=== PATIENT | female | born 1980 | race Caucasian/White ===

== ENCOUNTER 2022-05-14 08:45 | Outpatient (RCR) | payer BC, SELFPAY | END 2022-05-30 14:33 | disposition home or self-care (01) | PROVIDERS: Visit Provider Dentist | DX: M26.609 Unspecified temporomandibular joint disorder, unspecified side (principal); Z51.89 Encounter for other specified aftercare | CPT/HCPCS: 97110; 97140; 97161 ==

== ENCOUNTER 2022-10-10 10:10 | Emergency (ER) | payer BC, SELFPAY ==
[2022-10-10] VITALS (20 sets, daily range): BP systolic 90–116; BP diastolic 55–77; PULSE 63–79; RESP 16; TEMP 37.1; O2SAT 97–100; BMI 23.4
[2022-10-10 11:15] LABS: Appearance Urine Clear (Clear); Bilirubin Urine Negative (Negative); Blood Urine Negative (Negative); Color Urine Yellow (Yellow); Glucose Urine Negative (Negative); Ketones Urine Negative (Negative); Leukocyte Esterase Urine Negative (Negative); Nitrite Urine Negative (Negative); Protein Urine Negative (Negative); Specific Gravity Urine <= 1.005 (1.000-1.030); Urobilinogen Urine 0.2 (0.2-1.0)
--- NOTE | 2022-10-10 11:16 | ED.ABDPAIN ---
HPI - Abdominal Pain General Time Seen by Provider: 11:17 Date Seen: 10/10/22 Chief Complaint: Abdominal Pain Stated Complaint: Abdominal pain Time Seen by Provider: 10/10/22 11:15 Source: patient and RN notes reviewed Mode of arrival: ambulatory Limitations: no limitations History of Present Illness HPI narrative: Gill is a very pleasant 42-year-old female with a history of lupus, immune modulator medications, and endometrial ablation 2 years ago who comes to the emergency room complaining of pressure throughout her stomach after significant pain last evening. Patient notes that she was awoken from sleep overnight with a pain in her lower abdomen-she shows this to be suprapubic left lower quadrant wrapping around to her back. She notes that it was so severe that she needed to take 1 of her leftover Dilaudid tablets from her surgery 2 years ago. She had been experiencing approximately 48 hours of diarrhea nonbloody without vomiting. She has not been experiencing any fever chills sore throat runny nose or a cough. She has not been on any recent antibiotics. She does have a history of a ovarian cyst in the past. She states today that she feels like she has significant pressure throughout her abdomen but this severe pain has dissipated. She did call Ob but they were unable to accommodate her in the clinic today. She denies vaginal discharge or dysuria. She has not had problems with kidney stones in the past. Related Data Home Medications Medication Instructions Recorded Confirmed azathioprine 50 mg tablet (Imuran) 50 mg PO BID 10/10/22 10/10/22 hydroxychloroquine 200 mg tablet 200 mg PO BID 10/10/22 10/10/22 [id number] 2 cap PO QID 10/10/22 10/10/22 12,000-38,000-60,000 unit capsule,delayed rel (Creon) sulindac 200 mg tablet 200 mg PO DAILY 10/10/22 10/10/22 sumatriptan succinate 100 mg tablet 100 mg PO PRN 10/10/22 zolpidem 6.25 mg tablet,extended 6.25 mg PO QHS 10/10/22 10/10/22 release,multiphase Previous Rx's Medication Instructions Recorded hydromorphone 2 mg tablet 2 mg PO Q8H PRN pain #5 tabs 10/10/22 (Dilaudid) Allergies Allergy/AdvReac Type Severity Reaction Status Date / Time acetaminophen [From Percocet] Allergy Unknown Verified 10/10/22 10:16 hydrocodone [From Vicodin] Allergy Unknown Verified 10/10/22 10:16 oxycodone [From Percocet] Allergy Unknown Verified 10/10/22 10:16 Penicillins Allergy Unknown Verified 10/10/22 10:16 Review of Systems Status of ROS Reports: 10 or more systems reviewed and unremarkable except as noted in History and below Const Denies: fever or chills Eyes Denies: change in vision ENMT Denies: throat pain or neck pain Cardio Denies: chest pain, palpitations, swelling of feet/ankles or shortness of breath with exertion Resp Denies: shortness of breath, cough or wheezing GI Reports: abdominal pain, nausea and diarrhea Denies: painful urination or urinary frequency Musculo Denies: neck pain Integ/Breast Denies: rash Allergy/Immuno Denies: wheezing PFSH PFSH Social History Smoking Status: Never smoker Do you use any of these nicotine containing products: None Second hand tobacco smoke exposure: No How often do you have a drink containing alcohol: monthly or less AUDIT-C Alcohol total score: 1 Non-prescribed substance use: denies use service: No Exam Narrative: Exam Narrative: Patient is alert and oriented. He seems somewhat sad and very frustrated. Her is here in seems loving and supportive. EOM is full pupils equal round reactive neck is supple without lymphadenopathy. Heart with a regular rate and rhythm without murmur or rub and lungs are clear to auscultation. No CVA tenderness with percussion. Abdominal exam shows no localized tenderness. There does appear to be some discomfort with palpation over the suprapubic and left lower quadrant. No masses are palpated. Straight leg raise internal external rotation and tapping at the heel does not increase discomfort. Examination of the back shows no lesions to indicate shingles. Const: Vital Signs, click to edit/add: Vital Signs - 24 hr 10/10/22 10:21 10/10/22 10:38 10/10/22 10:39 Temperature 98.7 F Pulse Rate 73 69 Pulse Rate [Pulse Oximeter] 79 Respiratory Rate 16 Blood Pressure 105/69 Blood Pressure [Ri ght Upper Arm] 116/77 Pulse Oximetry 100 100 100 Oxygen Delivery Me thod Room Air 10/10/22 11:00 10/10/22 11:01 10/10/22 11:30 Temperature Pulse Rate 63 68 63 Pulse Rate [Pulse Oximeter] Respiratory Rate Blood Pressure 106/62 Blood Pressure [Ri ght Upper Arm] Pulse Oximetry 100 100 100 Oxygen Delivery Me thod 10/10/22 11:31 10/10/22 11:32 10/10/22 12:10 Temperature Pulse Rate 65 73 Pulse Rate [Pulse Oximeter] Respiratory Rate Blood Pressure 108/68 Blood Pressure [Ri ght Upper Arm] Pulse Oximetry 100 100 Oxygen Delivery Me thod 10/10/22 12:30 10/10/22 12:32 10/10/22 13:00 Temperature Pulse Rate 63 64 65 Pulse Rate [Pulse Oximeter] Respiratory Rate Blood Pressure 92/55 L Blood Pressure [Ri ght Upper Arm] Pulse Oximetry 100 100 100 Oxygen Delivery Me thod 10/10/22 13:01 10/10/22 13:30 10/10/22 13:32 Temperature Pulse Rate 71 72 70 Pulse Rate [Pulse Oximeter] Respiratory Rate Blood Pressure 96/57 L 90/59 L Blood Pressure [Ri ght Upper Arm] Pulse Oximetry 100 100 100 Oxygen Delivery Me thod 10/10/22 13:33 10/10/22 14:03 10/10/22 14:04 Temperature Pulse Rate 69 66 68 Pulse Rate [Pulse Oximeter] Respiratory Rate Blood Pressure 112/71 Blood Pressure [Ri ght Upper Arm] Pulse Oximetry 100 97 100 Oxygen Delivery Me thod 10/10/22 14:30 10/10/22 14:31 Temperature Pulse Rate 75 69 Pulse Rate [Pulse Oximeter] Respiratory Rate Blood Pressure 113/71 Blood Pressure [Ri ght Upper Arm] Pulse Oximetry 100 100 Oxygen Delivery Me thod Course Course Hospital Course: Differential diagnosis includes but is not limited to ovarian cyst rupture, diverticulitis, colitis, intussusception, ureteral colic, UTI. Spoke with patient about ordering labs to include a CBC, comprehensive panel, CRP, urinalysis and abdominal CT. Patient declines any pain medications at this time to include Toradol or narcotics. She is receptive to 1 L IV fluids. Reevaluation(s) Reevaluation #1: At this time abdominal CT is reassuring with no abnormal findings. Will order pelvic ultrasound. Reevaluation #2: Pelvic ultrasound appears to be within normal limits. Patient is very frustrated at this time he begins to cry. She states that she hates to come in here especially when nothing is wrong. She is worried that she will not be able to control the pain if it comes back. She does have 3 tablets of Dilaudid left. I am wondering if this may be endometriosis. However, she does have a mild elevation of her AST and ALT although there are her CRP is normal I did explain to her that the CT did show some fatty liver. She states that normally these values are totally normal. She has not traveled recently but given her history of diarrhea with this I did add acute hepatitis panel on to her labs. Vital Signs Vital signs: Initial Vital Signs Temperature 98.7 F 10/10/22 10:21 Temperature Source Temporal Artery Scan 10/10/22 10:21 Pulse Rate 79 10/10/22 10:21 Pulse Rhythm 10/10/22 10:21 Pulse Strength 3+ Normal 10/10/22 10:21 Respiratory Rate 16 10/10/22 10:21 Blood Pressure 116/77 10/10/22 10:21 Blood Pressure Mean 90 10/10/22 10:21 Blood Pressure Position Sitting 10/10/22 10:21 Pulse Oximetry 100 10/10/22 10:21 Oxygen Delivery Method 10/10/22 10:21 Vital Signs Temperature 98.7 F 10/10/22 10:21 Pulse Rate 79 10/10/22 10:21 Respiratory Rate 16 10/10/22 10:21 Blood Pressure 116/77 10/10/22 10:21 Pulse Oximetry 100 10/10/22 10:21 Oxygen Delivery Method 10/10/22 10:21 Temperature 98.7 F 10/10/22 10:21 Pulse Rate 69 10/10/22 14:31 Respiratory Rate 16 10/10/22 10:21 Blood Pressure 113/71 10/10/22 14:31 Pulse Oximetry 100 10/10/22 14:31 Oxygen Delivery Method 10/10/22 10:21 MDM - Abdominal Pain MDM Narrative Medical decision making narrative: 1. Abdominal pain-at this time no evidence of UTI, diverticulitis, colitis, ovarian cyst ovarian torsion. Patient may use the Dilaudid she has at home as needed for pain while awaiting follow-up with her primary MD. I have given her and additional 5 doses of Dilaudid 2 mg p.o. to be use Q 6-8 hours p.r.n.. At this time reassurance that I do not see any major medical issue going on. However I am sensitive to the fact that she is very frustrated with multiple medical problems including lupus. If she has the onset of fever, worsening symptoms would have her return to the emergency room she does note that her diarrhea has resolved I suspect that is because of the Dilaudid use last night. 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 Note there was increased colonic burden but I think this is likely secondary to narcotic use and not because constipation was the initial problem. 2. Elevated LFTs with diarrhea-hepatitis panel pending although I have a low suspicion for this. 3. Disposition-home at this time. I scents patient's extreme frustration at our lack of finding certain diagnoses today. I would ask her to return if she has onset of new symptoms or worsening symptoms. Follow-up with primary MD. Medical Records Attestation: I reviewed the patient's medical records. Lab Data Attestation: I reviewed the patient's lab results. Labs: Lab Results 10/10/22 10/10/22 10/10/22 Range/Units 10:35 10:35 10:35 WBC 4.59 (4.50-11.00) K/uL RBC 3.80 L (4.00-5.20) m/uL Hgb 12.9 (12.0-16.0) gm/dL Hct 36.6 (33.0-51.0) % MCV 96 (80-100) fL MCH 34 (26-34) pg MCHC 35 (32-36) gm/dL RDW Coeff of Brittany 13.3 (11.5-15.5) % Plt Count 275 (140-440) K/uL Neut % (Auto) 66.1 (42.0-72.0) % Lymph % (Auto) 26.1 (20-44) % Stanley % (Auto) 6.3 (0.0-11.0) % Eos % (Auto) 1.1 (0.0-7.0) % Baso % (Auto) 0.2 (0.0-3.0) % Neut # (Auto) 3.03 (1.7-7.0) K/uL Lymph # (Auto) 1.20 (0.90-2.90) K/uL Stanley # (Auto) 0.30 (0.00-0.90) K/UL Eos # (Auto) 0.05 (0.00-0.50) K/uL Baso # (Auto) 0.01 (0.00-0.30) K/uL Sodium 137 (135-149) mmol/L Potassium 4.8 (3.6-5.1) mmol/L Chloride 104 (96-114) mmol/L Carbon Dioxide 27 (20-32) mmol/L BUN 14 (5-24) mg/dL Creatinine 0.6 (0.5-1.5) mg/dL Estimated Creat Clear 103.10 Estimated GFR 116 ml/min Glucose 95 (60-115) mg/dL Lactate (0.5-1.9) mmol/L Calcium 9.4 (8.4-10.6) mg/dL Total Bilirubin 1.4 (0.1-1.5) mg/dL AST 50 H (12-35) U/L ALT 46 H (4-35) U/L Alkaline Phosphatase 45 (40-150) U/L C-Reactive Protein < 0.5 L (0.5-1.0) mg/dL Total Protein 7.5 (6.0-8.3) g/dL Albumin 4.7 (3.3-5.0) g/dL Urine Color Cancelled Urine Appearance Cancelled Urine pH Cancelled Ur Specific [place] Cancelled Urine Protein Cancelled Urine Glucose (UA) Cancelled Urine Ketones Cancelled Urine Blood Cancelled Urine Nitrite Cancelled Urine Bilirubin Cancelled Urine Urobilinogen Cancelled Ur Leukocyte Esterase Cancelled Urine RBC Cancelled Urine WBC Cancelled Urine WBC Clumps Cancelled Ur Squamous Epith Cells Cancelled Erda Biurate Crystals Cancelled Calcium Carbonate Cryst Cancelled Calcium Phosphate Cryst Cancelled Calcium Oxalate Crystal Cancelled Cystine Crystals Cancelled Uric Acid Crystals Cancelled Triple Phos Crystals Cancelled Sulfur Crystals Cancelled Cholesterol Crystals Cancelled Tyrosine Crystals Cancelled Hippuric Acid Crystals Cancelled Amorphous Sediment Cancelled Other Sediment Cancelled Urine Bacteria Cancelled Fatty Casts Cancelled Hyaline Casts Cancelled Fine Granular Casts Cancelled Coarse Granular Casts Cancelled Waxy Casts Cancelled RBC Casts Cancelled WBC Casts Cancelled Other Casts Cancelled Urine Starch Cancelled Urine Mucus Cancelled Urine Trichomonas Cancelled Urine Yeast Cancelled Urine HCG, Qual Negative (Negative) 10/10/22 10/10/22 Range/Units 10:35 10:55 WBC (4.50-11.00) K/uL RBC (4.00-5.20) m/uL Hgb (12.0-16.0) gm/dL Hct (33.0-51.0) % MCV (80-100) fL MCH (26-34) pg MCHC (32-36) gm/dL RDW Coeff of Brittany (11.5-15.5) % Plt Count (140-440) K/uL Neut % (Auto) (42.0-72.0) % Lymph % (Auto) (20-44) % Stanley % (Auto) (0.0-11.0) % Eos % (Auto) (0.0-7.0) % Baso % (Auto) (0.0-3.0) % Neut # (Auto) (1.7-7.0) K/uL Lymph # (Auto) (0.90-2.90) K/uL Stanley # (Auto) (0.00-0.90) K/UL Eos # (Auto) (0.00-0.50) K/uL Baso # (Auto) (0.00-0.30) K/uL Sodium (135-149) mmol/L Potassium (3.6-5.1) mmol/L Chloride (96-114) mmol/L Carbon Dioxide (20-32) mmol/L BUN (5-24) mg/dL Creatinine (0.5-1.5) mg/dL Estimated Creat Clear Estimated GFR ml/min Glucose (60-115) mg/dL Lactate 0.8 (0.5-1.9) mmol/L Calcium (8.4-10.6) mg/dL Total Bilirubin (0.1-1.5) mg/dL AST (12-35) U/L ALT (4-35) U/L Alkaline Phosphatase (40-150) U/L C-Reactive Protein (0.5-1.0) mg/dL Total Protein (6.0-8.3) g/dL Albumin (3.3-5.0) g/dL Urine Color Yellow Urine Appearance Clear Urine pH 6.0 Ur Specific [place] <= 1.005 Urine Protein Negative Urine Glucose (UA) Negative Urine Ketones Negative Urine Blood Negative Urine Nitrite Negative Urine Bilirubin Negative Urine Urobilinogen 0.2 Ur Leukocyte Esterase Negative Urine RBC 0-2 Urine WBC 0-2 Urine WBC Clumps Ur Squamous Epith Cells None Efrain Biurate Crystals Calcium Carbonate Cryst Calcium Phosphate Cryst Calcium Oxalate Crystal Cystine Crystals Uric Acid Crystals Triple Phos Crystals Sulfur Crystals Cholesterol Crystals Tyrosine Crystals Hippuric Acid Crystals Amorphous Sediment Other Sediment Urine Bacteria None Fatty Casts Hyaline Casts Fine Granular Casts Coarse Granular Casts Waxy Casts RBC Casts WBC Casts Other Casts Urine Starch Urine Mucus Urine Trichomonas Urine Yeast Urine HCG, Qual (Negative) Imaging Data CT scan - abdomen: Attestation: I have reviewed the pertinent imaging results. Radiologist's impression: Lower chest: Unremarkable. Liver: Mild decreased panic attenuation, possibly steatosis. No suspicious masses. Gallbladder and bile ducts: Unremarkable. No stones or inflammation. No biliary dilatation. Pancreas: Unremarkable. No mass or inflammation. Spleen: Unremarkable. Normal in size. No masses. Adrenal glands: Unremarkable. No nodules. Kidneys: Unremarkable. No suspicious masses, stones, or hydronephrosis. GI tract: Unremarkable. Normal in caliber. No sign of mass or inflammation. Normal appendix. Vasculature: Abdominal aorta is normal in caliber. Mesenteric arteries are patent. Lymph nodes: No lymphadenopathy. Peritoneum/Abdominal Wall: Unremarkable. No sign of mass or infiltration. No free air Pelvis: IUD. Trace free fluid, likely physiologic. Bones: Unremarkable for age. IMPRESSION: No acute intra-abdominal/pelvic abnormality. Mild colonic stool burden. Pelvic ultrasound: Attestation: I have reviewed the pertinent imaging results. Radiologist's impression: amira: 6.3 x 4.1 x 4.7 cm.? Normal echotexture of the myometrium.? No masses.? Endometrium: Transvaginal imaging was performed to better evaluate the endometrium. There is an IUD within the endometrial canal in satisfactory position. There heterogeneous appearance of the endocervical canal likely representing nabothian cystic changes. Right ovary measures 3.0 x 1.7 x 2.7 cm and left ovary measures 3.6 x 1.6 x 2.4 cm.? No ovarian or adnexal masses. Normal arterial and venous blood flow is demonstrated in both ovaries. Cul-de-sac: No significant free fluid.? ? IMPRESSION: IUD in satisfactory position. Minimal free fluid in the cul-de-sac. Otherwise, no acute abnormality is appreciated. Discharge Plan Discharge Clinical Impression: Elevated LFTs, Abdominal pain Patient Disposition: Home, Self-Care Condition: Unchanged Additional Instructions: 1. A few tablets of Dilaudid were sent to your local pharmacy. Please use sparingly as needed. 2. Follow-up with GI for recheck. They may want to draw another set of liver function tests for comparison. 3. Seek medical attention for fever, blood in stool, worsening pain, onset of new symptoms. Prescriptions: New hydromorphone [Dilaudid] 2 mg tablet 2 mg PO Q8H PRN (Reason: pain) Qty: 5 0RF No Action hydroxychloroquine 200 mg tablet 200 mg PO BID Label Comments: TAKE 1 TABLET BY MOUTH TWICE DAILY Creon 12,000-38,000 -60,000 unit capsule,delayed release(DR/EC) 2 cap PO QID Label Comments: TAKE 2 CAPSULES BY MOUTH WITH A MEAL AND 1 CAPSULE BY MOUTH WITH A SNACK DIRECTED sulindac 200 mg tablet 200 mg PO DAILY Label Comments: daily zolpidem 6.25 mg tablet,ext release multiphase 6.25 mg PO QHS sumatriptan succinate 100 mg tablet 100 mg PO PRN azathioprine [Imuran] 50 mg tablet 50 mg PO BID Label Comments: 100mg AM, 50mg PM Follow Up/Referrals: Provider,Not a Local [Primary Care Provider] - Stand Alone Forms: [employer] Info Instructions
--- NOTE | 2022-10-10 11:30 | CRLHL7_ITS ---
For Patients: As a result of the Century Cures Act, medical imaging exams and procedure reports are released immediately into your electronic medical record. You may view this report before your referring provider. If you have questions, please contact your health care provider. INDICATION: Lower abdominal pain. TECHNIQUE: CT abdomen and pelvis acquired with 65 cc Omnipaque 350 IV contrast. COMPARISON: None. FINDINGS: Lower chest: Unremarkable. Liver: Mild decreased panic attenuation, possibly steatosis. No suspicious masses. Gallbladder and bile ducts: Unremarkable. No stones or inflammation. No biliary dilatation. Pancreas: Unremarkable. No mass or inflammation. Spleen: Unremarkable. Normal in size. No masses. Adrenal glands: Unremarkable. No nodules. Kidneys: Unremarkable. No suspicious masses, stones, or hydronephrosis. GI tract: Unremarkable. Normal in caliber. No sign of mass or inflammation. Normal appendix. Vasculature: Abdominal aorta is normal in caliber. Mesenteric arteries are patent. Lymph nodes: No lymphadenopathy. Peritoneum/Abdominal Wall: Unremarkable. No sign of mass or infiltration. No free air Pelvis: IUD. Trace free fluid, likely physiologic. Bones: Unremarkable for age. IMPRESSION: No acute intra-abdominal/pelvic abnormality. Mild colonic stool burden. Please note that all CT scans at this facility use dose modulation, iterative reconstruction, and/or weight-based dosing when appropriate to reduce radiation dose to as low as reasonably achievable. Dictated by Oliver Fisher MD @ 10/10/2022 1:03:55 PM (Electronically Signed)
[2022-10-10 11:33] LABS: RBC Urine 0-2 (0-2); WBC Urine 0-2 (0-5)
[2022-10-10 11:39] LABS: Lactate* 0.8 mmol/L (0.5-1.9)
[2022-10-10 11:43] LABS: Basophils Absolute Auto 0.01 K/uL (0.00-0.30); Basophils Percent Auto 0.2 % (0.0-3.0); Eosinophils Absolute Auto 0.05 K/uL (0.00-0.50); Eosinophils Percent Auto 1.1 % (0.0-7.0); Hematocrit 36.6 % (33.0-51.0); Hemoglobin* 12.9 gm/dL (12.0-16.0); Immature Granulocytes Abs Auto 0.01 K/uL (0.00-0.30); Immature Granulocytes Pct Auto 0.2 %; Lymphocytes Percent Auto 26.1 % (20-44); Mean Corpuscular HGB Conc 35 gm/dL (32-36); Mean Corpuscular Hemoglobin 34 pg (26-34); Mean Corpuscular Volume 96 fL (80-100); Monocytes Percent Auto 6.3 % (0.0-11.0); Neutrophils Absolute Auto 3.03 K/uL (1.7-7.0); Neutrophils Percent Auto 66.1 % (42.0-72.0); Platelet Count* 275 K/uL (140-440); RDW Coefficient of Variation % 13.3 % (11.5-15.5); White Blood Count* 4.59 K/uL (4.50-11.00)
[2022-10-10 11:47] LABS: Slide Review Reflex No
[2022-10-10 11:57] LABS: Ur HCG Qualitative* Negative (Negative)
[2022-10-10 11:59] LABS: Albumin* 4.7 g/dL (3.3-5.0); Chloride* 104 mmol/L (96-114)
[2022-10-10 12:00] LABS: Potassium* 4.8 mmol/L (3.6-5.1); Sodium* 137 mmol/L (135-149)
[2022-10-10 12:02] LABS: Creatinine* 0.6 mg/dL (0.5-1.5); Estimated Glomerular Filt Rate 116 ml/min
[2022-10-10 12:03] LABS: Alanine Aminotransferase* 46 U/L (4-35); Alkaline Phosphatase* 45 U/L (40-150); Aspartate Amino Transferase* 50 U/L (12-35); Bilirubin Total* 1.4 mg/dL (0.1-1.5); Blood Urea Nitrogen* 14 mg/dL (5-24); Calcium* 9.4 mg/dL (8.4-10.6); Carbon Dioxide* 27 mmol/L (20-32); Glucose* 95 mg/dL (60-115); Total Protein* 7.5 g/dL (6.0-8.3)
[2022-10-10 12:14] LABS: C Reactive Protein* < 0.5 mg/dL (0.5-1.0)
[2022-10-10] MEDS: 0.9 % SODIUM CHLORIDE 1000 ml 1,000 ML IV (12:15)
--- NOTE | 2022-10-10 13:22 | CRLHL7_ITS ---
For Patients: As a result of the Century Cures Act, medical imaging exams and procedure reports are released immediately into your electronic medical record. You may view this report before your referring provider. If you have questions, please contact your health care provider. INDICATION: Abdominal and pelvic pain TECHNIQUE: Ultrasound pelvis transabdominal and transvaginal for better assessment or to better visualize the endometrium. Real-time sonographic images with spectral and color Doppler imaging of the ovaries were obtained. COMPARISON: None FINDINGS: Uterus: 6.3 x 4.1 x 4.7 cm. Normal echotexture of the myometrium. No masses. Endometrium: Transvaginal imaging was performed to better evaluate the endometrium. There is an IUD within the endometrial canal in satisfactory position. There heterogeneous appearance of the endocervical canal likely representing nabothian cystic changes. Right ovary measures 3.0 x 1.7 x 2.7 cm and left ovary measures 3.6 x 1.6 x 2.4 cm. No ovarian or adnexal masses. Normal arterial and venous blood flow is demonstrated in both ovaries. Cul-de-sac: No significant free fluid. IMPRESSION: IUD in satisfactory position. Minimal free fluid in the cul-de-sac. Otherwise, no acute abnormality is appreciated. Dictated by Clem Hall MD @ 10/10/2022 2:39:00 PM (Electronically Signed)
[2022-10-10 23:29] LABS: Bilirubin Direct* 0.3 mg/dL (0.0-0.5)
== END 2022-10-10 15:26 | disposition home or self-care (01) ==
PROVIDERS: Emergency Provider Family Medicine
DX: R10.9 Unspecified abdominal pain (principal); R19.7 Diarrhea, unspecified; R74.01 Elevation of levels of liver transaminase levels
CPT/HCPCS: 36415; 74177; 76830; 80053; 80076; 81001; 81025; 83605; 85025; 86140; 99284; J7030; Q9967

== ENCOUNTER 2022-10-17 09:19 | Outpatient (CLI) | payer BC, SELFPAY | END 2022-10-17 09:20 | disposition home or self-care (01) | PROVIDERS: Visit Provider Obstetrics & Gynecology | DX: R10.2 Pelvic and perineal pain (principal); N80.9 Endometriosis, unspecified; R79.89 Other specified abnormal findings of blood chemistry; R53.1 Weakness | CPT/HCPCS: 87070; 87075; 87109; 87205 ==

== ENCOUNTER 2023-05-20 08:30 | Outpatient (RCR) | payer BC, SELFPAY | END 2023-07-17 14:34 | disposition home or self-care (01) | PROVIDERS: Visit Provider Obstetrics & Gynecology | DX: R10.2 Pelvic and perineal pain (principal); N80.9 Endometriosis, unspecified; R53.1 Weakness; Z74.09 Other reduced mobility; K66.0 Peritoneal adhesions (postprocedural) (postinfection); Z51.89 Encounter for other specified aftercare | CPT/HCPCS: 97110; 97140; 97162 ==

== ENCOUNTER 2023-10-03 08:26 | Day surgery (SDC) | payer BC, SELFPAY ==
[2023-09-30 23:30] VITALS: BP 111/62; PULSE 98; RESP 16; TEMP 36.4; O2SAT 98
[2023-10-01 20:30] VITALS: BP 117/66; PULSE 93; RESP 16; TEMP 36.6; O2SAT 96
[2023-10-03] VITALS (21 sets, daily range): BP systolic 96–123; BP diastolic 60–94; PULSE 63–89; RESP 12–18; TEMP 35.7–37.1; O2SAT 97–100; BMI 25.2
[2023-10-03 08:56] LABS: Ur HCG Qualitative* Negative (Negative)
[2023-10-03] MEDS: LACTATED RINGERS 1000 ML 1,000 ML 100 ML IV ×4 (09:25→16:15)
[2023-10-03] MEDS: SODIUM CHLORIDE 0.9 % (FLUSH) 10 ML SYRINGE IVF (09:26)
[2023-10-03 09:29] LABS: Hemoglobin* 12.2 gm/dL (12.0-16.0)
[2023-10-03 09:45] LABS: Creatinine* 0.7 mg/dL (0.5-1.5); Est. Creatinine Clearance* 87.49; Estimated Glomerular Filt Rate 111 ml/min
--- NOTE | 2023-10-03 10:07 | W.PM.H&PU ---
History & Physical Update History & Physical Update H&P Reviewed and patient assessed: No changes noted
--- NOTE | 2023-10-03 10:44 | PM.GYNPRHY ---
Procedure Type of Hysterectomy: Total Laparoscopic Pre-op/Post-op diagnoses: Pre-Op/Post-Op Diagnoses Operation Date: 10/03/23 09:50 <No data on this case meets the specified criteria> Procedure: Procedures Operation Date: 10/03/23 09:50 Total laparoscopic hysterectomy, fulguration of endometrial implants, lysis of adhesions, and diagnostic cystoscopy Command [employer] Control Systems Integrator: Sofia Tovar Estimated blood loss (mL): 20 Anesthesia type: General Complications: none Fluid amount (mL): 1,900 Urine output (mL): 600 Weight of Uterus: 2.152 oz Specimen: uterus Disposition: floor Narrative: Preoperative diagnosis: Gill is a 43 y/o 2 para 2001 with longstanding endometriosis complicated by severe pelvic pain and menorrhagia. She's failed multiple medical managements and desires surgical treatment with hysterectomy. Postoperative diagnosis: Same Procedure: Total laparoscopic hysterectomy, fulguration of endometrial implants, lysis of adhesions, and diagnostic cystoscopy. Anesthesia: General endotracheal, local Surgeon: Gila Ambrocio MD Assist: Sofia Tovar MD Drains: Zarco to gravity Specimen: Uterus and cervix to pathology. Findings: On exam under anesthesia: Mons normal, clitoris normal, urethral meatus normal. Labia minora and majora normal in appearance bilaterally. Perineum and anus normal appearance. Vaginal introitus normal appearance. Vaginal pink and well rugated with scant white discharge. Cervix pink and without lesion. Bimanual exam reveals uterus to be soft, nontender, mobile, anteverted, of normal size and texture. No palpable adnexal masses or tenderness. Adnexa without mass or fullness palpable. Uterus sounded to 6.5 cm. On laparoscopy: Omental adhesions to the anterior abdominal wall near the umbilical port from previous surgery. Small uterus with some nodularity on the serosal surface (suspected myomas), surgically absent bilateral fallopian tubes. Normal appearing right ovary. Left ovary with an obvious endometrial implant on the surface. Posterior cul-de-sac without any noted endometrial implant. Endometrial implants not appreciated on any other pelvic surfaces. Appendix, liver and gallbladder all appeared normal. Procedure: Gill was taken to the operating room where general anesthetic was found to be adequate. She was placed in the dorsal lithotomy position and an exam under anesthesia was performed with findings stated above. She was then prepped and draped in a normal sterile manner. A Zarco catheter was placed. A bivalve speculum was placed in the vaginal canal. A long Allis clamp was placed on the anterior lip of the cervix, in the uterus sounded to 6.5 cm. A small VCare uterine manipulator was then placed. The Allis clamp and speculum were removed from the cervix. Attention was then turned to performing the laparoscopic portion of the procedure. All incisions were infiltrated with 1% lidocaine with epi prior to incising the skin. A vertical, infraumbilical 5mm incision was made. A 5 mm trocar was then placed under direct visualization. The abdomen was then insufflated with CO2 gas to a pressure of 15 mm of mercury. Three additional port sites were created. The 1st was in the patient's left lower quadrant, just superior medial to the left ASIS. The 2nd was a hand's breath superior to and slightly medial to the 1st. The 3rd was in the patient's right lower quadrant, just superior medial to the right ASIS. Each was infiltrated with small amount of lidocaine prior to incision. Of 5 mm incision was made at each site, making sure the large vessels were out of harm's way. A 5 mm Fios Kii port was inserted at each site, under direct visualization and without complication. The balloon on each of the 4 ports was inflated, holding each in place. Lysis of adhesion was undertaken to free the omental adhesion from the anterior abdominal wall as it was obscuring my view of the pelvis. At the field of view was cleared, attention was then turned to performing the hysterectomy. Both ureters were visualized in the normal position bilaterally. The left side of the hysterectomy was performed using the LigaSure dissecting forceps. The 1st pedicles were starting with the broad ligament that was cauterized and and bisected. In sequence show pedicles were formed to divide the utero-ovarian ligament. Then sequential pedicles were made through the broad ligament. The posterior leaf of the broad ligament was then divided and sequential pedicles carried down to the level of the VCare cup. The anterior leaf of the broad ligament was then divided down to the level of the anterior aspect of the VCare cup and a bladder flap created. The uterine vessels were then skeletonized. The uterine vessels were then cauterized and divided. Then excess tissue was cleared over the top of the VCare cup using the dissecting forceps. The right side of the hysterectomy was then performed in a similar manner. The Ligasure Valleylab pen with the spatula attachment was then used to perform the colpotomy incising around the VCare cup. The uterus was removed and the fundus placed in the vaginal canal to maintain insufflation. The vaginal cuff was then reapproximated using 2-0 V lock suture in a running manner. All the pedicles and vaginal cuff were then closely visualized and hemostasis obtained with bipolar cautery using the ligasure dissecting forceps or the Valleylab pen with the spatula. The Valleylab pen was used to fulgurate the endometriosis lesion on the left ovary. The the uterus was removed from the vaginal canal and sent to pathology. The Zarco catheter was briefly removed. A diagnostic cystoscopy was performed using normal saline as the insufflation medium. The dome of the bladder was noted to be without injury and no evidence of any sutures from the vaginal cuff causing injury. Normal urine flow was noted through both ureteral orifices. Methylene blue IV was used to visualize the urine more easily. The Zarco catheter was then replaced. Attention was then returned to the abdomen where hemostasis was verified. The CO2 pressure decreased to 5mmHG and hemostasis verified. The fascia in the LLQ incision was approximated with 0-Vicryl suture using the Venkatesh Thomasen fascial closure device. This was closed under direct visualization with the laparoscope. All trocars were removed under direct visualization. CO2 gas was allowed to escape the infraumbilical port prior to its removal. All skin incisions were re-approximated using 4-0 Monocryl in a running subcuticular manner, Exophin skin adhesive gel and adhesive bandages placed. The patient tolerated this procedure well. Sponge, lap and instrument counts were correct x2 at the end of the procedure and the patient was taken to the recovery area in stable condition. The patient received 2gm IV ancef prior to the start of the procedure.
[2023-10-03] MEDS: CEFAZOLIN 2 GM INJ IVP (10:47)
--- NOTE | 2023-10-03 10:55 | W.ANESCHARGE ---
Anesthesia Charges Start Date/Time Anesthesia Start Date: 10/03/23 Anesthesia Start Time: 10:32 Stop Date/Time Anesthesia Stop Date: 10/03/23 Anesthesia Stop Time: 13:38
--- NOTE | 2023-10-03 10:55 | W.PM.NB ---
Nerve Block Nerve Block Time Seen by Provider: 10:39 Date Seen: 10/03/23 Type of block requested by surgeon for post-operative analgesia: TAP Side: bilateral Time out performed: Yes Verification of patient name: Yes Verification of date of : Yes Site marking: site marked Name of person performing procedure: Rubio Continuous monitoring Was continuous monitoring of O2 sat, B/P, industrial electrical technician, recorded every 15 minutes?: Yes Procedure Checklist: sterile prep, needles and gloves Ultrasound guided. Images saved: Yes Medications given in 5ml increments after negative aspiration: Marcaine %: 0.25 mL: 30 Needle gauge: 20 and Exparel mL: 10 Patient tolerated procedure well: Yes Additional comments: Needle noted between internal oblique and transversus abdominus. Local spread visualized Block Charges Block Charge (with Pro Fee): TAP Bilateral Use of Ultrasound Machine for Block: Yes- US Guidance/pain block
[2023-10-03] MEDS: METHYLENE BLUE 1 % 10 ml 100 MG INJECTION (11:48)
[2023-10-03] MEDS: fentaNYL 100 MCG/2 ML inj 50 MCG IVP ×3 (13:36→13:57)
--- NOTE | 2023-10-03 13:42 | W.ANESCHARGE ---
Anesthesia Charges Start Date/Time Anesthesia Start Date: 10/03/23 Anesthesia Start Time: 10:32 Stop Date/Time Anesthesia Stop Date: 10/03/23 Anesthesia Stop Time: 13:38
[2023-10-03] MEDS: HYDROmorphone 2 MG TABLET PO ×2 (14:51→21:08)
[2023-10-03] MEDS: ACETAMINOPHEN INJ 1,000 MG/100 ML VIAL 400 MG IVPB (16:16)
[2023-10-03] MEDS: ACETAMINOPHEN 325 MG TABLET 650 MG PO (21:07)
[2023-10-03] MEDS: GABAPENTIN 100 MG CAPSULE PO (21:07)
[2023-10-04] MEDS: ACETAMINOPHEN 325 MG TABLET 650 MG PO ×3 (01:31→10:12)
[2023-10-04 03:27] VITALS: BP 121/76; PULSE 71; RESP 16; TEMP 37; O2SAT 100
[2023-10-04] MEDS: HYDROmorphone 2 MG TABLET PO (06:22)
[2023-10-04 06:38] LABS: Hemoglobin* 10.9 gm/dL (12.0-16.0)
[2023-10-04 06:53] LABS: Creatinine* 0.6 mg/dL (0.5-1.5); Est. Creatinine Clearance* 102.07; Estimated Glomerular Filt Rate 116 ml/min
[2023-10-04 07:00] VITALS: BP 119/71; PULSE 67; RESP 16; TEMP 36.9; O2SAT 98
--- NOTE | 2023-10-04 07:10 | PC.NURSE ---
Shift note: Pt alert and oriented. LAP appears clean and dry. Pain rate between 3 and 7. Pt was walked in the hallway tonight. Zarco removed at 0630. Vitally stable.
--- NOTE | 2023-10-04 07:51 | PM.GYNDS1 ---
DS: Providers Provider Time Seen by Provider: 07:00 Date Seen: 10/04/23 Primary care physician: Not a Local Provider Attending Physician on discharge: Gila Ambrocio MD Date of Discharge: 10/04/23 DS: Diagnosis Discharge Diagnosis (1) Endometriosis: Status: Acute (2) Pelvic pain: Status: Acute (3) S/P hysterectomy: Status: Acute (4) Acute blood loss anemia: Status: Acute DIRECTOR [employer] DEVELOPMENT-Discharge Summary Hospital Course Hospital Course Narrative: Gill is a 43 year old admitted on 10/03/23 for scheduled total laparoscopic hysterectomy with diagnostic cystoscopy. Indication for surgery: 1. Endometriosis 2. Pelvic pain Intraoperative findings: On exam under anesthesia: Mons normal, clitoris normal, urethral meatus normal. Labia minora and majora normal in appearance bilaterally. Perineum and anus normal appearance. Vaginal introitus normal appearance. Vaginal pink and well rugated with scant white discharge. Cervix pink and without lesion. Bimanual exam reveals uterus to be soft, nontender, mobile, anteverted, of normal size and texture. No palpable adnexal masses or tenderness. Adnexa without mass or fullness palpable. Uterus sounded to 6.5 cm. On laparoscopy: Omental adhesions to the anterior abdominal wall near the umbilical port from previous surgery. Small uterus with some nodularity on the serosal surface (suspected myomas), surgically absent bilateral fallopian tubes. Normal appearing right ovary. Left ovary with an obvious endometrial implant on the surface. Posterior cul-de-sac without any noted endometrial implant. Endometrial implants not appreciated on any other pelvic surfaces. Appendix, liver and gallbladder all appeared normal. She had an uncomplicated surgery. Postoperative course has been uneventful. Vitals have been stable. She has remained afebrile. Today, on postoperative day 1, she reports the pain is well controlled. She has been able to ambulate Without difficulty. She is tolerating regular diet. She is passing flatus. Jean catheter has been removed, and she is voiding without difficulty. Time Spent with Patient Time attestation: Total time spent providing and/or coordinating discharge services: Time spent: Less than 30 minutes DIRECTOR PRODUCT DEVELOPMENT - Exam Physical Exam: Vital signs: Temp Pulse Resp BP Pulse Ox O2 Del Method 98.6 F 71 16 121/76 100 Room Air 10/04/23 03:27 10/04/23 03:27 10/04/23 03:27 10/04/23 03:27 10/04/23 03:27 10/04/23 03:27 Narrative: Physical exam: General: No acute distress Psych: Alert and oriented x4, full affect HEENT: Normocephalic, atraumatic Neck: No cervical adenopathy, no thyromegaly Heart: Regular rate and rhythm, no murmur rub or gallop Lungs: Clear to auscultation bilaterally Abdomen: Normoactive bowel sounds, soft, no tenderness, rebound, or guarding, no masses, no hepatosplenomegaly, no hernias Incision: Appropriately tender to palpation. Clean, dry, and intact. No erythema, induration, or abnormal discharge/breakdown Skin: No lesions or rashes Lower extremities: No edema or erythema Pelvic exam: Scant bleeding on pad [employer]OR [employer]ODUCT DEVELOPMENT - DS: Data Data Completed and Pending Labs on day of discharge: Labs from last 24 hours 10/04/23 10/03/23 10/03/23 06:03 Unknown 09:20 Hgb 10.9 L 12.2 Creatinine 0.6 0.7 Estimated Creat Clear 102.07 87.49 Estimated GFR 116 111 Urine HCG, Qual Negative Blood Type O Positive Antibody Screen NEGATIVE Procedures Procedures: Procedures Operation Date: 10/03/23 09:50 Actual Procedure Side Surgeon p M/S - Laparoscopic Total Abdominal Hysterectomy, Fulgeration of endometrial adhesion of left ovary, lysis of adhesions, Cystoscopy Gila Ambrocio MD Complications: none Discharge Plan Discharge Disposition: Home w/ Parent or Adult Discharging Surgeon: Gila Ambrocio Follow-Up Appointment: 2 weeks and 6-8 weeks postop Prescriptions: New acetaminophen 325 mg Tablet 650 mg PO Q4H PRN (Reason: minor pain) 30 Days Qty: 90 0RF hydromorphone 2 mg Tablet 2 mg PO Q6H PRN14 Days Qty: 20 0RF docusate sodium 100 mg Capsule 100 mg PO BID PRN (Reason: Constipation) 30 Days Qty: 60 0RF gabapentin 100 mg Capsule 100 mg PO TID 30 Days Qty: 90 0RF simethicone 80 mg Tablet,Chewable 160 mg PO Q4H PRN (Reason: gas) 30 Days Qty: 60 0RF ferrous sulfate 134 mg (27 mg iron) tablet 134 mg PO DAILY Qty: 30 0RF Continued magnesium 200 mg tablet 200 mg PO DAILY hydroxychloroquine 200 mg tablet 200 mg PO BID sulindac 200 mg tablet 200 mg PO DAILY zolpidem 6.25 mg tablet,ext release multiphase 6.25 mg PO QHS sumatriptan succinate 100 mg tablet 100 mg PO DAILY PRN azathioprine [Imuran] 50 mg tablet 50 - 100 mg PO BID Rx Instructions: 100mg AM, 50mg PM levonorgestrel-ethinyl estrad 0.1-20 mg-mcg tablet 1 tab PO DAILY Patient Instructions: Iron Supplements (By mouth), Simethicone (By mouth), Laxative, Stool Softeners (By mouth), Hydromorphone (By mouth), Gabapentin (By mouth) Additional Instructions: LAPAROSCOPY POSTOPERATIVE INSTRUCTIONS ACTIVITY No heavy lifting/pushing/pulling for 4-6 weeks. Do not lift anything more than about 15 lbs (such as laundry, groceries, children, pets), vacuum, push heavy doors or grocery carts, etc. You may climb stairs as tolerated. Do not put anything in the vagina for 6-8 weeks after surgery unless otherwise instructed by your doctor (including tampons, douching, sexual intercourse, etc). No driving for about 2 weeks after surgery, while you are taking narcotic pain medication, or until you feel that you are ready. Practice checking your blind spot and stepping hard on the brake. Avoid sitting or lying in bed for more than 2 hours at a time while you are awake to reduce your risk of blood clots. You may return to work when directed by your physician. Please contact your doctor if you need any return to work letters or medical leave paperwork to be completed. WOUND CARE You will have 4 small incisions on your abdomen. There will be dissolvable stitches under your skin that do not need to be removed. Shower daily after surgery. Clean your incision with mild antibacterial soap and water. Pat your incision dry with a clean towel. No tub baths until wound is completely healed. Wash your hands frequently, especially before touching your incision, changing any dressings, after using the restroom, and before eating. PAIN MANAGEMENT Take your oral pain medication as needed. You should be taking Ibuprofen 600mg every 6 hours with 650 mg of Tylenol every 6 hours. You can take these together every six hours or alternate them every 3 hours. You should then take the Dilaudid as needed if you have breakthrough pain on top of the Tylenol and Ibuprofen. Some pain medications can cause constipation so you should take a stool softener (i.e. colace/senna) while you are on these medications. You may also take milk of magnesia or Miralax for constipation. WHAT TO EXPECT AT HOME Recovery from surgery is generally 2-4 weeks, but sometimes longer for more strenuous activity. It is normal to be very tired during this time. It is normal to have some drainage or a small amount of vaginal bleeding after surgery which may last up to 6 weeks. You may go home with a jean catheter in your bladder. If so, you will need to follow up for a nurse visit in 7-10 days for removal. You will most likely experience gas pain, abdominal swelling, or shoulder pain for 24-72 hours after surgery. This is from the carbon dioxide gas put into your abdomen to better visualize your organs. A warm shower, heating pad, and/or walking may help. WHEN TO CALL YOUR DOCTOR : Fever (>100.4?F or 38.0?C) or chills. Incision problems such as redness, warmth, swelling, or foul-smelling drainage. Severe nausea or persistent vomiting. Bright red vaginal bleeding (soaking >1 pad/hour) or foul-smelling vaginal drainage. Severe pain not relieved with pain medication. Pain and swelling in your legs, especially if it is only on one side and not the other. Pain with urination, cloudy urine, or foul-smelling urine. Or if you have any other problems or questions. CALL 911 OR GO TO THE EMERGENCY ROOM IF YOU HAVE: Any shortness of breath, difficulty breathing, or chest pain. Follow-up: Provider,Not a Local [Primary Care Provider] - Gila Ambrocio MD [Staff Physician] - 10/18/23 10:00 am ([facility] for follow up. [facility] for follow up, November 13 @9:45 am.) Discharge Orders: Discharge Order (Routine); Ordered 10/04/23 Ordered By: Gila Ambrocio
[2023-10-04] MEDS: GABAPENTIN 100 MG CAPSULE PO (10:12)
[2023-10-04] MEDS: DOCUSATE SODIUM 100 MG CAPSULE PO (10:12)
== END 2023-10-04 10:58 | disposition home or self-care (01) ==
LOC: OR 08:28 → MEDSURG 08:29
PROVIDERS: Visit Provider Obstetrics & Gynecology
PROC: 0UT94ZZ Resection of Uterus, Percutaneous Endoscopic Approach (ICD-10-PCS; CPT 58570; principal; 2023-10-03 09:45)
DX: N80.112 Superficial endometriosis of left ovary (principal); N92.0 Excessive and frequent menstruation with regular cycle; R10.2 Pelvic and perineal pain; K66.0 Peritoneal adhesions (postprocedural) (postinfection); G89.18 Other acute postprocedural pain; D62 Acute posthemorrhagic anemia
CPT/HCPCS: 58570; 58662; 49329; 00840; 36415; 64488; 76942; 81025; 82565; 85018; 86850; 86900; 86901; 88309; 88342; A9270; C9290; J0131; J0665; J0690; J1100; J1630; J1885; J2371; J2405; J2704; J2710; J3010; J3490; J7120

== ENCOUNTER 2023-11-14 10:03 | Outpatient (CLI) | payer BC, SELFPAY | END 2023-11-14 10:04 | disposition home or self-care (01) | LOC: NFLDREF 10:03 | PROVIDERS: Visit Provider Obstetrics & Gynecology | DX: D62 Acute posthemorrhagic anemia (principal) | CPT/HCPCS: 84443 ==

== ENCOUNTER 2023-11-28 10:50 | Outpatient (CLI) | payer BC, SELFPAY ==
--- OUTSIDE RECORDS SUMMARY | 2023-11-28 10:52 | XMS_ITS | Referral Summary ---
Author Name Unknown Organization [facility] Address [address] [place] [id number] Care Team Providers Care Golf [employer] Maker Name Role Phone Lashanda Crocker PhD LP Unavailable [phone] No Ref-Primary, Physician Primary Care Provider Allergies Active Allergy Reactions Criticality Noted Date Comments Albuterol Anaphylaxis High 12/27/2014 Amoxicillin-Pot Clavulanate Itching 01/21/2016 Contrast Dye 10/21/2012 Pt is ok with isovue 370 (iv contrast) and no pre-meds. Hydrocodone Hives 08/08/2015 Swelling, redness, skin scabs and hoover off Levofloxacin Itching 05/03/2016 Meloxicam Itching 10/10/2015 Shaking, chills Niacin Unknown 08/08/2015 No Clinical Screening - See Comments 10/21/2012 Opioids Oxycodone-Acetaminophen Itching 08/08/2015 Sumatriptan Nausea and Vomiting 08/08/2015 Described throat pain without throat swelling. Zinc Nausea and Vomiting 08/08/2015 Medications Medication Sig Dispensed Refills Start Date End Date Status Pantoprazole Sodium (PROTONIX PO) Take 40 mg by mouth every morning (before breakfast) Active blood glucose monitoring (ACCU-CHEK WALTER PLUS) meter device kitIndications:Spells Use to test blood sugars as needed 1 kit 0 10/18/2015 Active blood glucose monitoring (ACCU-CHEK WALTER PLUS) test stripIndications:Spel ls Use to test blood sugar 1-2 times daily or as directed. 100 each 3 10/21/2015 Active ondansetron (ZOFRAN ODT) 4 MG disintegrating tabletIndications:Chr onic intractable headache, unspecified headache type,Nausea Take 1-2 tablets (4-8 mg) by mouth every 8 hours as needed for nausea 20 tablet 1 12/14/2015 Active hydroxychloroquine (PLAQUENIL) 200 MG tabletIndications:Sys temic lupus erythematosus (H) Take 2 tablets (400 mg) by mouth daily EYE EXAM 01/25/16 180 tablet 1 02/28/2016 Active MELATONIN PO Take 6 mg by mouth At Bedtime Active azaTHIOprine (IMURAN) 50 MG tablet Take 50 mg by mouth 2 times daily Active Cholecalciferol (VITAMIN D) 2000 UNITS CAPS Take 1 capsule by mouth Active propranolol (INDERAL) 10 MG tabletIndications:Adeel neymar without aura and without status migrainosus, not intractable Take 1 tablet (10 mg) by mouth 2 times daily 60 tablet 1 07/26/2016 Active SUMAtriptan (IMITREX) 100 MG tabletIndications:Adeel neymar without aura and without status migrainosus, not intractable Take 1 tablet (100 mg) by mouth at onset of headache for migraine May repeat in 2 hours. Max 2 tablets/24 hours. 18 tablet 3 08/22/2016 Active norethindrone-ethinyl estradiol (JUNEL 08/31) 1-20 MG-MCG per tablet CONTINUOUS METHOD: TAKE 1 TABLET BY MOUTH DAILY. BEGIN NEW PACK IMMEDIATELY. 04/26/2017 Active gabapentin (NEURONTIN) 100 MG capsule TAKE ONE CAPSULE BY MOUTH ONE TIME DAILY AT BEDTIME 07/11/2017 Active Active Problems Patient Care Coordination No te Formatting of this note migh t be different from the original. [email or web address] Problem Noted Date Diagnosed Date Migraine without aura and wi thout status migrainosus, not intractable 07/26/2016 Fibromyalgia 12/21/2015 Encounter for monitoring of methotrexate therapy 06/16/2015 MATILDA positive 01/06/2015 Overview: 1:160 homogenous - IFA from [place] 12/2014 EIA [facility] negative Systemic lupus erythematosus 12/27/2014 Painful respiration 12/27/2014 Pain in joint, ankle and foot 12/27/2014 Long-term use of Plaquenil 12/27/2014 Enthesopathy of hip region 12/27/2014 Adjustment disorder with depressed mood 12/28/19 15 Resolved Problems Problem Noted Date Diagnosed Date Resolved Date Trochanteric bursitis of both hips 08/17/2015 10/14/2015 On Cellcept therapy 12/27/2014 06/16/20 15 Immunizations Name Administration Dates Next Due Influenza Vaccine, 6+MO IM ( QUADRIVALENT W/PRESERVATIVES) 05/20/2015 Social History Tobacco Use Types Packs/Day Years Used Date Smoking Tobacco: Never Smokeless Tobacco: Never Alcohol Use Standard Drinks/Week Comments Yes 0 (1 standard drink = 0.6 oz pur e alcohol) less than 1/month PHQ-2 Answer Date Recorded PHQ-2 Score 1 08/20/2018 Adolescent Education Answer Date Record ed Getting School Help Needed Not on file 05/28 Sex and Gender Information Value Date Recorded Sex Assigned at Not on file Gender Identity Not on file Sexual Orientation Not on file Last Filed Vital Signs Vital Sign Reading Time Taken Comments Blood Pressure 102/64 07/22/2017 1:42 PM LICENSED OPTICAL DISPENSER Pulse 88 07/22/2017 1:42 PM LICENSED OPTICAL DISPENSER Temperature 36.4 ??C (97.5 ??F) 07/22/2017 1:42 PM CS T Respiratory Rate 12 05/31/2016 7:40 AM CDT Oxygen Saturation 99% 07/22/2017 1:42 PM LICENSED OPTICAL DISPENSER Inhaled Oxygen Concentration - - Weight 67.9 kg (149 lb 11.2 oz) 07/22/2017 1:42 PM LICENSED OPTICAL DISPENSER Height 159.4 cm (5' 2.75) 07/22/2017 1:42 PM CS T Body Mass Index 26.73 07/22/2017 1:42 PM LICENSED OPTICAL DISPENSER Plan of Treatment Not on file Procedures Procedure Name Priority Date/Time Associated Diagnosis Comments GLUCOSE Routine 05/05/2016 8:03 AM CDT Hypoglycemia HEPATITIS C ANTIBODY Routine 05/20/2015 8:51 AM CDT Encounter for monitoring of methotrexate therapy HIV ANTIGEN ANTIBODY COMBO Routine 12/27/2014 9:53 AM CDT Systemic lupus erythematosus (H) Long-term use of Plaquenil ABSTRACT PAP (HIM EXTERNAL RESULT) Routine 10/10/2013 from Last 3 Months or Most Recently Relevant to Health Maintenance Results * (ABNORMAL) Glucose (05/05/2016 8:03 AM CDT) Glucose 102(H) 70 - 99 mg/dL [facility] Blood specimen (specimen) 05/05/2016 8:03 AM CDT 05/05/2016 8:04 AM CDT Bernie Oliveira PA-C LAB - BLOOD ORDERA BLES [facility] [address] [place] [address] * Hepatitis C antibody (05/20/2015 8:51 AM CDT) Hepatitis C Antibody Nonreactive Assay performance characteristics have not been established for newborns, infants, and children NR [facility] Blood specimen (specimen) 05/20/2015 8:51 AM CDT 05/20/2015 8:56 AM CDT Irma Paredes MD LAB - BLOOD MIRELLA LEON [facility] [address] [place] [address] * HIV Antigen Antibody Combo (12/27/2014 9:53 AM CDT) Pathologist [facility] HIV Antigen Antibody Combo Nonreactive HIV-1 p24 Ag & HIV-1/HIV-2 Ab Not Detected NR [facility] Blood specimen (specimen) 12/27/2014 9:53 AM CDT 12/27/2014 9:58 AM CDT Irma Paredes MD LAB - BLOOD MIRELLA LEON [facility] [address] [place] [address] * ABSTRACT PAP-NO CHARGE (10/10/2013) 10/10/2013 Narrative EXTERNAL LAB - 10/10/2013 Pap smear done on this date: October of 2013 (approximately), by this group: [facility] results were NORMAL. Provider Outside LAB - HIM EXTERNAL R ESULT EXTERNAL LAB External Lab from Last 3 Months or Most Recently Relevant to Health Maintenance Care Teams [employer] Relationship Specialty Start Date End Date No Ref-Primary, Physician PCP - General 07/22/17 Lashanda Crocker, PhD LP [address] [place] [id number] Psychology 12/31/14
--- OUTSIDE RECORDS SUMMARY | 2023-11-28 10:52 | XMS_ITS | Clinical Summary ---
Author Name Unknown Organization [facility] Address [address] [place] [id number] Care Team Providers Care Tissue Coordinator Name Role Phone Lashanda Crocker PhD LP Unavailable [phone] No Ref-Primary, Physician Primary Care Provider Allergies [...] migh t be different from the original. [email or web address] Problem Noted Date Diagnosed Date Migraine without aura and wi thout status migrainosus, not intractable 07/26/2016 Fibromyalgia 12/21/2015 Encounter for monitoring of methotrexate therapy 06/16/2015 MATILDA positive 01/06/2015 Overview: 1:160 homogenous - IFA from [place] 12/2014 EIA [facility] negative Systemic lupus erythematosus [...] Vaccine, 6+MO IM ( QUADRIVALENT W/PRESERVATIVES) 05/20/2015 Family History Medical History Relation Comments Anxiety Disorder Brother 1 Depression Brother 1 Mental Illness Brother 1 Substance Abuse Brother 1 Anxiety Disorder Brother 2 Depression Brother 2 Mental Illness Brother 2 Diabetes Maternal Grandfather 19 96 Diabetes Maternal Grandmother 20 06 Substance Abuse Paternal Grandfather Osteoporosis Paternal Grandmother Depression Sister 1 Anxiety Disorder Sister 2 Depression Sister 2 Depression Sister 3 Relation Status Comments Brother 1 Brother 2 Maternal Grandfather Maternal Grandmother Paternal Grandfather Paternal Grandmother Sister 1 Sister 2 Sister 3 Social History Tobacco Use Types Packs/Day Years [...] Comments Blood Pressure 102/64 07/22/2017 1:42 PM [facility] Pulse 88 07/22/2017 1:42 PM [facility] Temperature 36.4 ??C (97.5 ??F) 07/22/2017 1:42 PM CS T Respiratory Rate 12 05/31/2016 7:40 AM CDT Oxygen Saturation 99% 07/22/2017 1:42 PM [facility] Inhaled Oxygen Concentration - - Weight 67.9 kg (149 lb 11.2 oz) 07/22/2017 1:42 PM [facility] Height 159.4 cm (5' 2.75) 07/22/2017 1:42 PM CS T Body Mass Index 26.73 07/22/2017 1:42 PM M[facility] CLAM[facility] Plan of Treatment Not on file Procedures [...] CDT) Glucose 102(H) 70 - 99 mg/dL [facility] Blood specimen (specimen) 05/05/2016 8:03 AM CDT 05/05/2016 8:04 AM CDT Bernie Oliveira PA-C LAB - BLOOD [place] [facility] [address] [place] [address] * Hepatitis C antibody (05/20/2015 8:51 AM CDT) Pathologist [facility] [place] Hepatitis C Antibody Nonreactive Assay performance characteristics have not been established for newborns, infants, and children NR [facility] Blood specimen (specimen) 05/20/2015 8:51 AM CDT 05/20/2015 8:56 AM CDT Irma Paredes MD LAB - BLOOD MIRELLA LEON [facility] [address] [place] [address] * HIV Antigen Antibody Combo (12/27/2014 9:53 AM CDT) HIV Antigen Antibody Combo Nonreactive HIV-1 p24 Ag & HIV-1/HIV-2 Ab Not Detected NR [facility] Blood specimen (specimen) 12/27/2014 9:53 AM CDT 12/27/2014 9:58 AM CDT Irma Paredes MD LAB - BLOOD MIRELLA LEON Performing Organization Address City/[facility]/ZIP Co de Phone Number [facility] [address] [place] [address] * ABSTRACT PAP-NO CHARGE (10/10/2013) 10/10/2013 Narrative EXTERNAL LAB - 10/10/2013 Pap smear done on this date: October of 2013 (approximately), by this group: [facility] results were NORMAL. Provider Outside LAB - HIM EXTERNAL R ESULT Performing Organization Address City/[facility]/ZIP Co de Phone Number EXTERNAL LAB External Lab from Last 3 Months or Most Recently Relevant to Health Maintenance Care Teams Tissue Coordinator Relationship Specialty Start Date End Date No Ref-Primary, Physician PCP - General 07/22/17 Lashanda Crocker, PhD LP [address] [place] [id number] Psychology 12/31/14
--- OUTSIDE RECORDS SUMMARY | 2023-11-28 10:52 | XMS_ITS | Clinical Summary ---
Author Name Unknown Organization [employer] [facility] Address [place], [place] [address] Care Team Providers Care Nipple Machine Operator Name Role Phone Gypsy Jung MD Primary Care Provider Allergies Active Allergy Reactions Criticality Noted Date Comments Albuterol Throat Swelling/Closing High 05/14/2014 Amoxicillin-Pot Clavulanate Itching 03/15/2016 Hydrocodone Hives 06/19/2012 Swelling, redness, skin scabs and hoover off Iodinated Contrast Media Throat Swelling/Closing 09/13/[address] scans Levofloxacin Itching 03/15/2016 Meloxicam Itching 03/15/2016 Niacin Flushing 12/31/2005 Oxycodone-Acetaminophen Itching 09/13/2009 Ropinirole Vomiting 07/28/2018 Stabbing pain in head Sumatriptan Nausea And Vomiting 04/21/2015 Injectable form only, tolerates oral form fine. Described throat pain without throat swelling. Zinc Vomiting 12/31/2005 Medications Medication Sig Dispensed Refills Start Date End Date Status azaTHIOprine (IMURAN) 50 mg tablet Take 2 tabs in AM and one tab at bedtime. Patient not entirely sure of dosage. 0 10/04/2016 Active hydroxychloroquine (PLAQUENIL) 200 mg tablet Take 1 tablet by mouth 2 times daily. 0 04/16/2017 Active sulindac (CLINORIL) 200 mg tablet 12/11/2017 Active vitamin D3-vitamin K2 1,250-200 mcg cap Take by mouth. 0 10/25/2021 Active Magnesium 200 mg tab Take 1 Tablet (200 mg) by mouth once daily. 0 10/25/2021 Active b complex vitamins (VITAMIN B COMPLEX) capsule Take 1 Capsule by mouth once daily. 0 10/25/2021 Active fxdlxv-olevjxrv-dan lase (Creon) 12,000-38,000 -60,000 unit cpDR delayed-release capsuleIndications: Pancreatic insufficiency Take 2 capsules with a meal by mouth. Take 1 capsule with a snack by mouth. 300 Capsule 11 02/07/2022 Active Additional Information Patient taking differently: Take 2 capsules with a meal by mouth. Take 1 capsule with a snack by mouth.At this time - patient taking an OTC supplement, Reported on 09/24/2023 norethindrone (NORLUTATE) 5 mg tablet Take 5 mg by mouth once daily. 08/16/2023 Active SUMAtriptan (IMITREX) 100 mg tabletIndications:M igraine without status migrainosus, not intractable, unspecified migraine type Take 1 Tablet (100 mg) by mouth every 2 hours if needed for Migraine. Max dose: 200mg per 24 hrs. 30 Tablet 11 09/03/2023 Active zolpidem CR (AMBIEN CR) 6.25 mg Extended-Release tabletIndications:S leep disturbance Take 1 Tablet (6.25 mg) by mouth at bedtime if needed for Sleep. 30 Tablet 1 09/16/2023 Active Active Problems Problem Noted Date Diagnosed Date Dilated cardiomyopathy nieves harmany to systemic lupus erythematosus 09/03/2023 Chronic pelvic pain in female 07/07/2020 Fibromyalgia 10/23/2016 Dyspareunia in female 10/23/2016 Lupus 09/09/2014 GERD (gastroesophageal reflux disease) 5 TMJ dysfunction 09/23/2012 Vitamin D deficiency 07/27/2011 Overview: 07/24: 15.4. Started on replacement of 50,000 IU twice a week for 8 weeks. Recheck at that time. Displacement of lumbar inter vertebral disc without myelopathy 03/13/2007 Overview: Permanent partial disability 15% Migraine, unspecified, witho ut mention of intractable migraine without mention of status migrainosus 11/27/2006 LACTOSE INTOLERANCE 12/31/2005 Irritable bowel syndrome 12/31/2005 Resolved Problems Problem Noted Date Diagnosed Date Resolved Date care and examinat ion of lactating mother 09/14/2010 11/21/2010 section 09/11/2010 11/21/2010 Supervision of other normal 04/11/2010 11/21/2010 Failure to progress in labor 10/20/2008 09/13/2009 section 10/20/2008 09/13/2009 Cough 02/25/2006 09/13/2009 Encounters Date Type Department Care Team Description 10/04/2023 Lab Requisition [facility] [phone] Shantell Mccarthy DO 09/24/2023 10:15 AM DIRT BIKE MECHANIC Ancillary Procedure [facility] [address] [place] [address] 09/24/2023 10:00 AM DIRT BIKE MECHANIC Ancillary Procedure [address] [address] 09/24/2023 8:40 AM DIRT BIKE MECHANIC Office Visit [address] [address] Selvin Logan MD Musculoskeletal Problem (Consultation for bilateral hip pain x 2 + months/Hurts to sit for long periods of time and to lay on either side./Recent diagnosis of Lupus ) 09/24/2023 Travel 09/16/2023 8:45 AM DIRT BIKE MECHANIC Office Visit [facility] [address] [place] [address] Gypsy Jung MD Establish Care (stomach pain/constipation, insomnia) 09/16/2023 Travel 09/03/2023 8:45 AM DIRT BIKE MECHANIC Preop Visit [address] [address] Aman Bernabe MD Preoperative Exam (Hysterectomy, 10/03/23, [place]) 09/03/2023 Travel from Last 3 Months Immunizations Name Administration Dates Next Due AMB INFLUENZA, IIV4 (AGE=>6MOS) MDV (Flu Clinic Only) 05/20/2015 Influenza, IIV3 (Age >=3 years) 05/26/2013 Influenza, IIV4 06/13/2021,05/25/2015 Influenza, IIV4 (=>6mos) MDV 05/20/2015 Tdap 09/14/2010 Family History Medical History Relation Name Comments Good Health Brother 2 Good Health Brother 3 Good Health Daughter Second Alcohol/Drug Father GI Disease Father Hypertension Father Other Father RESTRICTED URET ER/VARIOUS BOWEL/GASTERITIS Cancer Maternal Grandfather lymphom a? Diabetes Maternal Grandfather Heart Disease Maternal Grandfather Hypertension Maternal Grandfather Arthritis Maternal Grandmother Cancer Maternal Grandmother Cancer-breast Maternal Grandmother age 70 's Diabetes Maternal Grandmother d 84 Heart Disease Maternal Grandmother Hypertension Maternal Grandmother Other Maternal Grandmother CAD/gla ucoma Blood Disease Mother anemia Diabetes Mother Heart Disease Mother Hypertension Mother Other Mother CAD/severe anem ia Diabetes Paternal Grandfather GI Disease Paternal Grandfather Hyperlipidemia Paternal Grandfather Hypertension Paternal Grandfather Arthritis Paternal Grandmother GI Disease Paternal Grandmother Hypertension Paternal Grandmother Osteoporosis Paternal Grandmother Other Paternal Grandmother CAD Good Health Sister 2 Good Health Sister 3 Good Health Sister 4 GI Disease Sister 5 Good Health Son Older Anesthesia Problem No Family History Relation Name Status Comments Brother 1 Alive x2 Brother 2 Brother 3 Daughter Father Alive Maternal Grandfather Maternal Grandmother Mother Alive Paternal Grandfather Alive Paternal Grandmother Sister 1 Alive x3 Sister 2 Sister 3 Sister 4 Sister 5 Son Social History Tobacco Use Types Packs/Day Years Used Date Smoking Tobacco: Never Passive Smoke Exposure: Never Smokeless Tobacco: Never Tobacco Cessation:Counseling Given: Yes Alcohol Use Standard Drinks/Week Comments Not Currently 0 (1 standard drink = 0.6 oz pur e alcohol) rare PHQ-2 Answer Date Recorded PHQ-2 TOTAL SCORE 0 09/16/2023 Social Connections Answer Date Recorded Frequency of Communication with Friends and Fami ly 0 06/11/2023 Financial Resource Strain Answer Date R ecorded Difficulty of Paying Living Expenses 3 06/11/2023 Difficulty of Paying Living Expenses Not on file 06/11/2023 Food Insecurity Answer Date Recorded Worried About Running Out of Food in the Last Ye ar 1 06/11/2023 Transportation Needs Answer Date Record ed Lack of Transportation (Medical) 1 06/11/2023 Housing Stability Answer Date Recorded Unable to Pay for Housing in the Last Year 1 06/11/2023 Sex and Gender Information Value Date Recorded Sex Assigned at Female 12/27/2020 8:14 AM CDT Gender Identity Female 12/27/2020 8:14 AM CDT Sexual Orientation Straight 12/27/2020 8: 14 AM CDT Obstetrics History Para Term AB IAB SAB Ectopic Multiple Livin g Live Births 2 2 2 0 0 0 0 0 0 2 2 Date Outcome GA Total Labor Labor/2nd/3rd Weight Sex Delivery Anes PTL Melita A1 A5 Name Cl in 10/20 Term 41w 3d 14h 00m/ 3.53 kg (7 lb 12.5 oz) M CS-LTranv Epidu ral N Jerri ng 8 9 Eleuterio Borow /Hube rty Delivery Location:[facility] Comments:FTP 09/11 Term 38w 6d 3.51 kg (7 lb 11.8 oz) F Spina l N Jerri ng 8 9 Tammy Bor /Hube rty Delivery Location:[facility] Comments:repeat Comments LMP 01/08/08 Last Filed Vital Signs Vital Sign Reading Time Taken Comments Blood Pressure 124/77 09/24/2023 8:44 AM DIRT BIKE MECHANIC Pulse 73 09/24/2023 8:44 AM DIRT BIKE MECHANIC Temperature 36.8 ??C (98.3 ??F) 09/03/2023 8:57 AM CS T Respiratory Rate 16 09/16/2022 11:23 AM DIRT BIKE MECHANIC Oxygen Saturation 100% 09/24/2023 8:44 AM DIRT BIKE MECHANIC Inhaled Oxygen Concentration - - Weight 64 kg (141 lb 3.2 oz) 09/16/2023 8:53 AM DIRT BIKE MECHANIC Height 161.6 cm (5' 3.62) 09/16/2023 8:53 AM CS T Body Mass Index 24.53 09/16/2023 8:53 AM DIRT BIKE MECHANIC Plan of Treatment Health Maintenance Due Date Last Done Comments Tetanus booster 09/14/2020 09/14/2010 COVID-19 vaccine series (2 - Moderna risk series) 12/30/2020 12/02/2020 Influenza for age 9-49 04/12/2024 , 05/25/2015, 05/20/2015, Additional history exists BMI (ht and wt on same day) for age 18+ 09/16/2024 09/16/2023, 09/03/2023, 05/09/2022, Additional history exists Depression screening for age 12+ 09/16/2024 09/16/2023, 05/09/2022, 07/06/2020, Additional history exists Pap test for age 21-65 08/09/2026 , 08/09/2023, 10/31/2016, Additional history exists HIV for age 15-65 Completed 01/13/2010, 03/23/2008 Tdap Completed 09/14/2010 Hepatitis C screening for age 18-79 Completed 05/09/2022 Pneumococcal series for age 6-64 Aged Out No longer eligible based on patient's age to complete this topic Procedures Procedure Name Priority Date/Time Associated Diagnosis Comments LAB TRACKING EVENT Routine 10/03/2023 12 :27 PM DIRT BIKE MECHANIC PATH TISSUE EXAM Routine 10/03/2023 12:2 7 PM DIRT BIKE MECHANIC XR SPINE LUMBAR 3 VIEWS Routine 09/24/2023 10:12 AM DIRT BIKE MECHANIC Chronic left-sided low back pain with left-sided sciatica XR HIP 1 VIEW W PELVIS LEFT Routine 09/24/2023 10:11 AM DIRT BIKE MECHANIC Bilateral hip pain CBC WITH AUTO DIFFERENTIAL Routine 09/03/2023 8:52 AM DIRT BIKE MECHANIC Pre-op exam CBC WITH AUTO DIFFERENTIAL Routine 09/03/2023 8:52 AM DIRT BIKE MECHANIC Pre-op exam DIRECTOR PRISON THIN PREP PAP SCREEN IMAGED Routine 08/09/2023 12:00 PM DIRT BIKE MECHANIC ANTI HCV Routine 05/09/2022 9:19 AM CDT Need for hepatitis C screening test ANTI HIV 1/2 Routine 01/13/2010 11:23 AM CDT Amenorrhea from Last 3 Months or Most Recently Relevant to Health Maintenance Results * LAB TRACKING EVENT (10/03/2023 12:27 PM DIRT BIKE MECHANIC) Other (Other) Client Collect / Unknown 10/03/2023 12:27 PM DIRT BIKE MECHANIC 10/04/2023 11:42 AM DIRT BIKE MECHANIC Shantell Mccarthy DO LAB BILL ONLY [facility]AL LABORATORY [address] [place] [address], * PATH TISSUE EXAM (10/03/2023 12:27 PM DIRT BIKE MECHANIC) Case Report Pathology Report ?Case: [id number] ? Authorizing Provider: ??Shantell Mccarthy, ? Collected: ? 10/03/2023 1227 ? Ordering Location: ? [facility] ?Received: ?10/04/2023 1349 ? Pathologist: ? Tena Warren MD ? Specimen: ?Uterus and Cervix ? 10/10/2023 12:14 PM DIRT BIKE MECHANIC [facility] LABORAT[facility]-C ENTRAL LABORATORY Final Diagnosis A) UTERUS WITH CERVIX, TOTAL HYSTERECTOMY: 1. Cervix (entirely submitted): ?? a. Low grade squamous intraepithelial lesion (CHAYITO-1) ?? b. Benign Nabothian cysts ?? c. Margin: Focal squamous atypia suggestive of but not diagnostic for low grade squamous intraepithelial lesion (CHAYITO 1) at 3-6 o'clock quadrant ?? d. Negative for glandular neoplasia, high grade squamous intraepithelial lesion, and malignancy 2. Endometrium: Weakly proliferative to inactive 3. Myometrium: Leiomyoma 4. Uterine serosa: Unremarkable 5. Uterine weight: 57 grams 6. Negative for malignancy 10/10/2023 12:14 PM DIRT BIKE MECHANIC [facility] LABORATORY-C ENTRAL LABORATORY Clinical Information Menorrhagia, pelvic pain, endometriosis. Pap ASCUS, HR-HPV positive. 10/10/2023 12:14 PM DIRT BIKE MECHANIC [facility] Gross Description A) Received in formalin, labeled with the patient's name and uterus and cervix, is a 57 g total hysterectomy specimen to include the uterus with attached cervix. ??The uterus is 7.5 cm cervix to fundus, 4.0 cm cornu to cornu and 3.8 cm anterior to posterior. ??The serosa is kellogg-purple, smooth and glistening with a 0.7 cm subserosal white whorled nodule. ??The 3.1 x 3.1 cm kellogg-pink and mostly smooth ectocervix displays a 0.5 cm slitlike os. The 3.1 cm in length by 0.7 cm in diameter kellogg-pink, glistening endocervical canal displays the normal herringbone pattern and a well-defined squamocolumnar junction. ??Sectioning of the cervical stroma reveals numerous nabothian cysts. ??The 3.2 x 1.5 cm triangular endometrial cavity is lined with up to 0.2 cm of kellogg-red and glistening endometrium. ??The myometrium is kellogg-pink, mildly trabeculated and 1.8 cm in average thickness. ??No intramural nodules are identified. Punch Press Feeder sections are submitted as follows: 1. ??Anterior cervix 2. ??Posterior cervix 3. ??Anterior endomyometrium, full-thickness 4. ??Posterior endomyometrium, full-thickness 5. ??Subserosal nodule JKT 10/04/2023 Remainder of the cervix is submitted as follows: 6-8. ??Cervix, sequentially from 12:00 to 3:00 9-11. Cervix, sequentially from 3:00 to 6:00 12-13. Cervix, sequentially from 6:00 to 9:00 14-15. Cervix, sequentially from 9:00 to 12:00 ADW 10/08/2023 10/10/2023 12:14 PM DIRT BIKE MECHANIC [facility] LABORATORY- ENTRAL LABORATORY Microscopic Description The final diagnosis is based on microscopic examination of appropriate sections of all specimens. A p16 immunostain was performed on block A7 to assist in evaluation. The p16 immunostain is negative for diffuse expression. 10/10/2023 12:14 PM DIRT BIKE MECHANIC [facility] LABORATORY-C ENTRAL LABORATORY Additional Information Interpreted at [facility] Central Laboratory - [address] [place] [address] [facility] [address], [place] [address] 10/10/2023 12:14 PM DIRT BIKE MECHANIC [facility]- ENTRAL LABORATORY Other (Uterus and Cervix) 10/03/2023 12:27 PM DIRT BIKE MECHANIC 10/04/2023 1:49 PM DIRT BIKE MECHANIC Shantell Mccarthy DO [facility]OLOG[facility] [address] [place] [address], * XR SPINE LUMBAR 3 VIEWS (09/24/2023 10:12 AM DIRT BIKE MECHANIC) Anatomical Region Laterality Modality LUMBAR SPINE Computed Radiogr aphy Narrative 09/24/2023 3:18 PM DIRT BIKE MECHANIC INDICATION: Chronic low back pain COMPARISON: None TECHNIQUE: 3 views lumbar spine FINDINGS: Lumbar vertebral bodies are normal in height and alignment. ?? Normal disc spaces and facet joints. ??Sacroiliac joints are maintained. ?? Normal hip joints. Impression: Normal lumbar spine radiographs. Selvin Logan MD GENERAL IMAGING * XR HIP 1 VIEW W PELVIS LEFT (09/24/2023 10:11 AM DIRT BIKE MECHANIC) Anatomical Region Laterality Modality HIPS, HIPL, Pelvis Computed Radi ography Impressions 09/24/2023 3:19 PM DIRT BIKE MECHANIC Normal radiographs of the pelvis and left hip. Narrative 09/24/2023 3:19 PM DIRT BIKE MECHANIC INDICATION: Lateral hip and buttock pain COMPARISON: None TECHNIQUE: AP pelvis and lateral view left hip FINDINGS: Normal osseous structures without fracture. ??Normal joint spaces. Selvin Logan MD GENERAL IMAGING * (ABNORMAL) CBC WITH AUTO DIFFERENTIAL (09/03/2023 8:52 AM [facility]) WHITE BLOOD COUNT 4.7 4.5 - 11.0 thou/cu mm 09/03/2023 9:00 AM [facility] RED BLOOD COUNT 4.01 4.00 - 5.20 mil/cu mm 09/03/2023 9:00 AM [facility] HEMOGLOBIN 13.8 12.0 - 16.0 g/dL 09/03/2023 9:00 AM [facility] HEMATOCRIT 38.4 33.0 - 51.0 % 09/03/2023 9:00 AM [facility] MCV 96 80 - 100 fL 09/03/2023 9:00 AM [facility] MCH 34.4(H) 26.0 - 34.0 pg 09/03/2023 9:00 AM [facility] MCHC 35.9 32.0 - 36.0 g/dL 09/03/2023 9:00 AM [facility] RDW 13.1 11.5 - 15.5 % 09/03/2023 9:00 AM [facility] PLATELET COUNT 279 140 - 440 thou/cu mm 09/03/2023 9:00 AM [facility] MPV 9.2 6.5 - 11.0 fL 09/03/2023 9:00 AM [facility] % NEUT 59.4 % 09/03/2023 9:00 AM [facility] % LYMPH 30.2 % 09/03/2023 9:00 AM [facility] % MONO 7.9 % 09/03/2023 9:00 AM [facility] % EOS 1.9 % 09/03/2023 9:00 AM [facility] % BASO 0.6 % 09/03/2023 9:00 AM [facility] ABSOLUTE NEUTROPHILS 2.8 1.7 - 7.0 thou/cu mm 09/03/2023 9:00 AM DIRT BIKE MECHANIC [facility] ABSOLUTE LYMPHOCYTES 1.4 0.9 - 2.9 thou/cu mm 09/03/2023 9:00 AM DIRT BIKE MECHANIC [facility] ABSOLUTE MONOCYTES 0.4 <0.9 thou/cu mm 09/03/2023 9:00 AM DIRT BIKE MECHANIC [facility] ABSOLUTE EOSINOPHILS 0.1 <0.5 thou/cu mm 09/03/2023 9:00 AM DIRT BIKE MECHANIC [facility] ABSOLUTE BASOPHILS 0.0 <0.3 thou/cu mm 09/03/2023 9:00 AM DIRT BIKE MECHANIC [facility] Blood BLOOD SPECIMEN / Unknown Venipuncture / Unknown 09/03/2023 8:52 AM DIRT BIKE MECHANIC 09/03/2023 8:53 AM DIRT BIKE MECHANIC Aman Bernabe MD HEMATOLOGY Performing Organization Address [facility] Co de Phone Number [facility] [address] [place] [address], * (ABNORMAL) DIRECTOR PRISON THIN PREP PAP SCREEN IMAGED (08/09/2023 12:00 PM DIRT BIKE MECHANIC) Case Report Gynecologic Cytology Report ? Case: [id number] ? Authorizing Provider: ??Gila Ambrocio MD ?Collected: ? 08/09/2023 1200 ? Ordering Location: ? [facility] ?Received: ?08/14/2023 0940 ? First Screen: ?Ethan Manning ? Rescreen: ?Kellie Echavarria ? Pathologist: ? Kahlil Santos Jr., ? MD ? Specimen: ?DIRECTOR PRISON ThinPrep Vial Screening, Cervical ? 08/15/2023 10:16 AM [facility] LABORAT[facility]- ENTRAL LABORATORY INTERPRETATION/ RESULT ATYPICAL SQUAMOUS CELLS OF UNDETERMINED SIGNIFICANCE (ASCUS)(A) (none) 08/15/2023 10:16 AM [facility]- ENTRAL LABORATORY IMEN ADEQUACY Satisfactory for evaluation Endocervical component present 08/15/2023 10:16 AM [facility]- ENTRAL LABORATORY HPV REQUEST HPV and PAP 08/15/2023 10:16 AM [facility]-C ENTRAL LABORATORY Last Pap Date 10/31/2016 08/15/2023 10:16 AM [facility]-C ENTRAL LABORATORY Last Pap Result NIL 10:16 AM [facility] Abnormal Pap or [place] Bx in last 5 years No 08/15/2023 10:16 AM [facility] [place] Bx Done Today Yes 08/15/2023 10:16 AM [facility] Additional Information 08/15/2023 10:16 AM [facility] Comment: Interpreted at [facility] - [address], [place] [address] Automated Review Successful 08/15/2023 10:16 AM [facility] Comment:Specimen processed s uccessfully by automated needle leader device, ThinPrep Imaging System, [employer] ANCILLARY TESTING DIRECTOR PRISON HPV Ordered, Please see separate report 08/15/2023 10:16 AM [facility] Note The pap test is a screening technique, not a diagnostic procedure. It is used primarily to screen for squamous cancers and precursor lesions. Published studies have shown that it is subject to both false negative and false positive results. The pap test should not be used as the sole means to diagnose or exclude pre-malignant and malignant lesions. 08/15/2023 10:16 AM [facility] Other (Cervical) 08/09/2023 12:00 PM DIRT BIKE MECHANIC 08/14/2023 9:40 AM DIRT BIKE MECHANIC Gila Tanna Ambrocio MD PATHOLOGY/CYTOLOGY [facility] [address] [place] [address] [address], * ANTI HCV (05/09/2022 9:19 AM CDT) HEPATITIS C ANTIBODY Non-React jake Non-React jake 05/09/2022 6:36 PM CDT [facility] TRAL LABORATORY Comment:Antibodies to HCV no t detected; does not exclude the possibility of exposure to HCV. Blood BLOOD SPECIMEN / Unknown Venipuncture / Unknown 05/09/2022 9:19 AM CDT 05/09/2022 9:22 AM CDT Rupal BORGES SEND OUTS [facility] LABORATORY-CENTRAL LABORATORY [address] [place] [address], [place] * ANTI HIV 1/2 (01/13/2010 11:23 AM CDT) ANTI HIV 1/2 Non-reacti ve [facility] Blood specimen (specimen) BLOOD SPECIMEN / Unknown 01/13/2010 11:23 AM CDT 01/13/2010 11:14 AM CDT Vanita Tuttle MD SEND OUTS [facility] LABOR[facility] [place]NAL ZIP [address] [address] from Last 3 Months or Most Recently Relevant to Health Maintenance Advance Directives * Full Code (Latest Code Status on File) Date Activated Date Inactivated Comments 09/11/2010 6:04 AM 09/11/2010 10:40 AM * Full Code Date Activated Date Inactivated Comments 08/13/2010 9:53 AM 08/13/2010 3:51 PM * Full Code Date Activated Date Inactivated Comments 07/19/2010 10:51 AM 07/19/2010 5:57 PM * Full Code Date Activated Date Inactivated Comments 06/19/2010 6:37 PM 06/19/2010 11:06 PM * Full Code Date Activated Date Inactivated Comments 10/19/2008 12:51 PM 10/20/2008 7:46 AM Care Teams Nipple Machine Operator Relationship Specialty Start Date End Date Gypsy [place] [address] [place] [address] PCP - General Family Practice 09/16/23
--- OUTSIDE RECORDS SUMMARY | 2023-11-28 10:53 | XMS_ITS | Encounter Summary ---
Author Name Unknown Organization [place] Address [facility] [place] [address] Care Team Providers Care Medical Stenographer Name Role Phone Irma Paredes MD Unavailable [phone] Lashanda Crocker PhD LP Unavailable [phone] No Ref-Primary, Physician Primary Care Provider Adrián Guzman PA-C Unavailable Ravin Freeman PA-C Unavailable Ravin Freeman PA-C Unavailable Reason for Referral * Consultation - Closed Specialty Diagnoses / Procedures Referred By Francisca murrieta Referred To Contact Diagnoses Hypoglycemia Adrián Guzman PA-C [address] [place] [address] [facility] Referral ID Status Reason Start Date Expiration Date Visits Re quested Visits Authorized [id number] Closed 03/30/2016 03/30/2017 1 1 Comments Your provider has referred you to: [facility]: [facility] [email or web address] Please be aware that coverage of these services is subject to the terms and limitations of your health insurance plan. Call member services at your health plan with any benefit or coverage questions. Please bring the following to your appointment: >> Any x-rays, CTs or MRIs which have been performed. Contact the facility where they were done to arrange for greens picker prior to your scheduled appointment. Any new CT, MRI or other procedures ordered by your specialist must be performed at a [facility] or coordinated by your clinic's referral office. >> List of current medications >> This referral request >> Any documents/labs given to you for this referral Reason for Visit * Reason Onset Date Comments MyChart Communication 03/29/2016 Encounter Details Date Type Department Care Team (Late st Contact Info) Description 03/29/2016 [facility] [address], [address] [place] [address] Adrián Guzman PA-C [address] [place] [address] MyChart Communication Social History Tobacco Use Types Packs/Day Years Used Date Smoking Tobacco: Never Smokeless Tobacco: Never Alcohol Use Standard Drinks/Week Comments Yes 0 (1 standard drink = 0.6 oz pur e alcohol) less than 1/month Sex and Gender Information Value Date Recorded Sex Assigned at Not on file Gender Identity Not on file Sexual Orientation Not on file documented as of this encounter Miscellaneous Notes * Telephone Encounter - Marcela French RN - 03/29/2016 11:07 AM CDT Please advise Marcela French RN, BSN documented in this encounter Plan of Treatment Scheduled Referrals Name Type Priority Associated Diagnoses Orde r Schedule ENDOCRINOLOGY ADULT REFERRAL Referral Routine Hypoglycemia Ordered: 03/30/2016 documented as of this encounter Visit Diagnoses Diagnosis Hypoglycemia- Primary Hypoglycemia, unspecified documented in this encounter Additional Health Concerns Assessment Noted Time PHQ-9 Depression Total Score: 12 11/22/2 016 7:14 AM CDT documented as of this encounter Care Teams Medical Stenographer Relationship Specialty Start Date End Date No Ref-Primary, Physician PCP - General 07/22/17 Adrián Guzman PA-C [address] [facility] [address] PCP - Assigned PCP 07/28/17 08/30/18 Ravin Freeman PA-C [address] [place] [address] PCP - Assigned PCP 08/31/18 10/14/18 Irma Paredes MD Resident Rheumatology 12/31/14 10/07/18 Lashanda Crocker, PhD LP [address] [place] [address] Psychology 12/31/14 Ravin Freeman PA-C [address] [place] [address] Assigned PCP 08/31/18 08/01/19 documented as of this encounter
--- OUTSIDE RECORDS SUMMARY | 2023-11-28 10:53 | XMS_ITS | Encounter Summary ---
Author Name Unknown Organization [place] Address [address] [place] [address]. [place] [address] Care Team Providers Care Gripper Machine Operator Name Role Phone Irma Paredes MD Unavailable [phone] Lashanda Crocker PhD LP Unavailable No Ref-Primary, Physician Primary Care Provider Adrián Guzman PA-C Unavailable Ravin Freeamn PA-C Unavailable Ravin Freeman PA-C Unavailable [phone] Reason for Visit * Reason Onset Date Comments MyChart Communication 10/14/2015 f/u regard ing pain Encounter Details Date Type Department Care Team (Late st Contact Info) Description 10/14/2015 [facility] Medical Advice [facility] [address] [place] [address], [address] [place] [address] Adrián Guzman PA-C [address] [place] [address] MyChart Communication (f/u regarding pain) Social History Tobacco Use Types Packs/Day Years [...] encounter Miscellaneous Notes * Telephone Encounter - Kamilla Agarwal RN - 10/14/2015 2:01 PM CST Please review/advise on pt's MyChart message regarding f/u for pain. Celine Agarwal RN, BSN IER GAMBLING documented in this encounter Plan of Treatment Not on file documented as of this encounter Visit Diagnoses Diagnosis Spells- Primary Other convulsions documented in this encounter Care Teams Gripper Machine Operator Relationship Specialty Start Date End Date No Ref-Primary, Physician PCP - General 07/22/17 Adrián Guzman PA-C [address] [place] [address] PCP - Assigned PCP 07/28/17 08/30/18 Ravin Freeman PA-C [address] [place] [address] PCP - Assigned PCP 08/31/18 10/14/18 Irma Paredes MD Resident Rheumatology 12/31/14 10/07/18 Lashanda Crocker, PhD LP 909 [place] [address] Psychology 12/31/14 Ravin Freeman PA-C [address] [place] [address] Assigned PCP 08/31/18 08/01/19 documented as of this encounter
--- OUTSIDE RECORDS SUMMARY | 2023-11-28 10:53 | XMS_ITS | Encounter Summary ---
Author Name Unknown Organization [place] Address [address] [place] [address]. [place] [address] Care Team Providers Care Jig And Fixture Builder Name Role Phone Irma Paredes MD Unavailable [phone] Lashanda Crocker PhD LP Unavailable No Ref-Primary, Physician Primary Care Provider Adrián Guzman PA-C Unavailable [phone] Ravin Freeman PA-C Unavailable Ravin Freeman PA-C Unavailable Reason for Visit * Reason Onset Date Comments MyChart Communication 11/14/2015 Endocrinol ogist Encounter Details Date Type Department Care Team (Late st Contact Info) Description 11/14/2015 MyC Medical Advice [facility] [address] [place] [address], [address] [place] [address] Adrián Guzman PA-C [address] [place] [address] MyChart Communication (Rougher For Cement) Social History Tobacco Use Types Packs/Day Years [...] Miscellaneous Notes * Telephone Encounter - Kamilla Agarwal, RN - 11/15/2015 7:42 AM CDT Please review/advise on pt's MyChart message regarding reactive hypoglycemia. Thanks! Celine Agarwal, RN, BSN documented in this encounter Plan of Treatment Not on file documented as of this encounter Visit Diagnoses Not on filedocumented in this encounter Care Teams Jig And Fixture Builder Relationship Specialty Start Date End Date No Ref-Primary, Physician PCP - General 07/22/17 Adrián Guzman PA-C [address] [place] [address] PCP - Assigned PCP 07/28/17 08/30/18 Ravin Freeman PA-C [address] [place] [address] PCP - Assigned PCP 08/31/18 10/14/18 Irma Paredes MD Resident Rheumatology 12/31/14 10/07/18 Lashanda Crocker, PhD LP 909 [place] [address] Psychology 12/31/14 Ravin Freeman PA-C [address] [place] [address] Assigned PCP 08/31/18 08/01/19 documented as of this encounter
--- OUTSIDE RECORDS SUMMARY | 2023-11-28 10:53 | XMS_ITS | Encounter Summary ---
Author Name Unknown Organization [place] Address [facility] [address] Care Team Providers Care Orthoptist Name Role Phone Irma Paredes MD Unavailable Lashanda Crocker PhD LP Unavailable [phone] No Ref-Primary, Physician Primary Care Provider Adrián Guzman PA-C Unavailable Ravin Freeman PA-C Unavailable [phone] Ravin Freeman PA-C Unavailable Encounter Details Date Type Department Care Team (Late st Contact Info) Description 05/24/2015 MyC Medical Advice [facility] Adult Rheumatology 2nd Floor, Clinic [address] [phone] Irma Paredes MD [address] [place] [address] Social History Tobacco Use Types Packs/Day Years Used Date Smoking Tobacco: Never Smokeless Tobacco: Never Alcohol Use Standard Drinks/Week Comments Yes 0 (1 standard drink = 0.6 oz pur e alcohol) rarely Sex and Gender Information Value Date Recorded Sex Assigned at Not on file Gender Identity Not on file Sexual Orientation Not on file documented as of this encounter Plan of Treatment Not on file documented as of this encounter Visit Diagnoses Not on filedocumented in this encounter Care Teams Orthoptist Relationship Specialty Start Date End Date No Ref-Primary, Physician PCP - General 07/22/17 Adrián Guzman PA-C [address] [place] [address] PCP - Assigned PCP 07/28/17 08/30/18 Ravin Freeman PA-C [address] [place], [place] [id number] PCP - Assigned PCP 08/31/18 10/14/18 Irma Paredes MD Resident Rheumatology 12/31/14 10/07/18 Lashanda Crocker, PhD LP 9 [place] [address] Psychology 12/31/14 Ravin Freeman PA-C [address] [place] [address] Assigned PCP 08/31/18 08/01/19 documented as of this encounter
--- OUTSIDE RECORDS SUMMARY | 2023-11-28 10:53 | XMS_ITS | Encounter Summary ---
Author Name Unknown Organization [place] Address [address] [place] [address]. [place] [address] Care Team Providers Care Block Operator Name Role Phone Irma Paredes MD Unavailable [phone] Lashanda Crocker PhD LP Unavailable No Ref-Primary, Physician Primary Care Provider Adrián Guzman PA-C Unavailable Ravin Freeman PA-C Unavailable Ravin Freeman PA-C Unavailable Reason for Visit * Reason Onset Date Comments Results 05/08/2016 labs Encounter Details Date Type Department Care Team (Late st Contact Info) Description 05/08/2016 [facility] [place] [facility] [address] [place] [address] Bernie Oliveira PA-C [address] [place] [address] Results (labs) Social History Tobacco Use Types Packs/Day Years [...] encounter Miscellaneous Notes * Telephone Encounter - Shelly Zambrano RN - 05/08/2016 10:43 AM CDT Routing to Bernie. Shelly Zambrano RN documented in this encounter Plan of Treatment Not on file documented as of this encounter Visit Diagnoses Not on filedocumented in this encounter Additional Health Concerns Assessment Noted Time PHQ-9 Depression Total Score: 12 016 7:14 AM CDT documented as of this encounter Care Teams Block Operator Relationship Specialty Start Date End Date No Ref-Primary, Physician PCP - General 07/22/17 Adrián Guzman PA-C [address] [place] [address] PCP - Assigned PCP 07/28/17 08/30/18 Ravin Freeman PA-C [address] [place] [address] PCP - Assigned PCP 08/31/18 10/14/18 Irma Paredes MD Resident Rheumatology 12/31/14 10/07/18 Lashanda Crocker, PhD LP 909 [place] [address] Psychology 12/31/14 Ravin Freeman PA-C [address] [place] [address] Assigned PCP 08/31/18 08/01/19 documented as of this encounter
--- OUTSIDE RECORDS SUMMARY | 2023-11-28 10:53 | XMS_ITS | Encounter Summary ---
Author Name Unknown Organization [place] Address [facility] [place] [address] Care Team Providers Care Plush Cutter Name Role Phone Irma Paredes MD Unavailable Lashanda Crocker PhD LP Unavailable [phone] No Ref-Primary, Physician Primary Care Provider Adrián Guzman PA-C Unavailable Ravin Freeman PA-C Unavailable Ravin Freeman PA-C Unavailable Encounter Details Date Type Department Care Team (Late st Contact Info) Description 04/22/2015 MyC Medical Advice [facility] Adult Rheumatology 2nd Floor, Clinic [address] [address] Irma Paredes MD [address] [place] [address] Social History Tobacco Use Types Packs/Day Years [...] on filedocumented in this encounter Care Teams Plush Cutter Relationship Specialty Start Date End Date No Ref-Primary, Physician PCP - General 07/22/17 Adrián Guzman PA-C [address] [place] [address] PCP - Assigned PCP 07/28/17 08/30/18 Ravin Freeman PA-C [address] [place], [place] [id number] PCP - Assigned PCP 08/31/18 10/14/18 Irma Paredes MD Resident Rheumatology 12/31/14 10/07/18 Lashanda Crocker, PhD LP 9 [place] [address] Psychology 12/31/14 Ravin Freeman PA-C [address] [place] [address] Assigned PCP 08/31/18 08/01/19 documented as of this encounter
--- OUTSIDE RECORDS SUMMARY | 2023-11-28 10:53 | XMS_ITS | Encounter Summary ---
Author Name Unknown Organization [place] Address [facility] [place] [address] Care Team Providers Care Fraud Examiner Name Role Phone Irma Paredes MD Unavailable Lashanda Crocker PhD LP Unavailable [phone] No Ref-Primary, Physician Primary Care Provider Adrián Guzman PA-C Unavailable Ravin Freeman PA-C Unavailable Ravin Freeman PA-C Unavailable Encounter Details Date Type Department Care Team (Late st Contact Info) Description 09/05/2015 MyC Medical Advice [facility] Adult Rheumatology 2nd Floor, Clinic [address]A [address] [address] Irma Paredes MD [address] [place] [address] Social History Tobacco Use Types Packs/Day Years [...] on filedocumented in this encounter Care Teams Fraud Examiner Relationship Specialty Start Date End Date No Ref-Primary, Physician PCP - General 07/22/17 Adrián Guzman PA-C [address] [place] [address] PCP - Assigned PCP 07/28/17 08/30/18 Ravin Freeman PA-C [address] [place], [place] [address] PCP - Assigned PCP 08/31/18 10/14/18 Irma Paredes MD Resident Rheumatology 12/31/14 10/07/18 Lashanda Crocker, PhD LP 9 [place] [address] Psychology 12/31/14 Ravin Freeman PA-C [address] [place] [address] Assigned PCP 08/31/18 08/01/19 documented as of this encounter
--- OUTSIDE RECORDS SUMMARY | 2023-11-28 10:53 | XMS_ITS | Encounter Summary ---
Author Name Unknown Organization [place] Address [address] [place] [address]. [place] [address] Care Team Providers Care Computed Tomography Scanner Operator Name Role Phone Irma Paredes MD Unavailable [phone] Lashanda Crocker PhD LP Unavailable [phone] No Ref-Primary, Physician Primary Care Provider Adrián Guzman PA-C Unavailable Ravin Freeman PA-C Unavailable [phone] Ravin Freeman PA-C Unavailable Reason for Visit * Reason Onset Date Comments Blood Glucose (home Monitoring) 10/25/2015 Encounter Details Date Type Department Care Team (Late st Contact Info) Description 10/25/2015 [facility] [place] [address], [address] [place] [address] Adrián Guzman PA-C [address] [place] [address] Blood Glucose (home Monitoring) Social History Tobacco Use Types Packs/Day Years [...] on filedocumented in this encounter Care Teams Computed Tomography Scanner Operator Relationship Specialty Start Date End Date No Ref-Primary, Physician PCP - General 07/22/17 Adrián Guzman PA-C [address] [place] [address] PCP - Assigned PCP 07/28/17 08/30/18 Ravin Freeman PA-C [address] [place], [place] [address] PCP - Assigned PCP 08/31/18 10/14/18 Irma Paredes MD Resident Rheumatology 12/31/14 10/07/18 Lashanda Crocker, PhD LP 9 [place] [address] Psychology 12/31/14 Ravin Freeman PA-C [address] [place] [address] Assigned PCP 08/31/18 08/01/19 documented as of this encounter
--- OUTSIDE RECORDS SUMMARY | 2023-11-28 10:53 | XMS_ITS | Encounter Summary ---
Author Name Unknown Organization [place] Address [address] [place] [address] Care Team Providers Care Reliability Technologist Name Role Phone Irma Paredes MD Unavailable Lashanda Crocker PhD LP Unavailable [phone] No Ref-Primary, Physician Primary Care Provider Adrián Guzman PA-C Unavailable Ravin Freeman PA-C Unavailable Ravin Freeman PA-C Unavailable [phone] Encounter Details Date Type Department Care Team (Late st Contact Info) Description 04/07/2015 MyC Medical Advice [facility] Adult Rheumatology 2nd Floor, Clinic [address]A [address] [address] Osmin Pedersen MD [address] [place] [address] Social History Tobacco Use Types Packs/Day Years [...] encounter Miscellaneous Notes * Telephone Encounter - Osmin Pedersen MD - 04/08/2015 5:08 PM CDT Labs actually all look fine except for some blood in UA, which is only concerning if persistent, and not related to menstruation. So no explanation that would likely relate to a flare of SLE, and would try to avoid going up on prednisone unless this just won't resolve, then we can try that... documented in this encounter Plan of Treatment Not on file documented as of this encounter Visit Diagnoses Not on filedocumented in this encounter Care Teams Reliability Technologist Relationship Specialty Start Date End Date No Ref-Primary, Physician PCP - General 07/22/17 Adrián Guzman PA-C [address] [place] [address] PCP - Assigned PCP 07/28/17 08/30/18 Ravin Freeman PA-C [address] [place], [place] [address] PCP - Assigned PCP 08/31/18 10/14/18 Irma Paredes MD Resident Rheumatology 12/31/14 10/07/18 Lashanda Crocker, PhD LP 909 [place] [address] Psychology 12/31/14 Ravin Freeman PA-C [address] [place] [address] Assigned PCP 08/31/18 08/01/19 documented as of this encounter
--- OUTSIDE RECORDS SUMMARY | 2023-11-28 10:53 | XMS_ITS | Encounter Summary ---
Author Name Unknown Organization [place] Address [facility] [place] [address] Care Team Providers Care Test Engine Operator Name Role Phone Irma Paredes MD Unavailable Lashanda Crocker PhD LP Unavailable No Ref-Primary, Physician Primary Care Provider Adrián Guzman PA-C Unavailable Ravin Freeman PA-C Unavailable Ravin Freeman PA-C Unavailable [phone] Encounter Details Date Type Department Care Team (Latest Contact Info) Description 06/30/2015 MyC Medical Advice [facility] Adult Rheumatology 2nd Floor, Clinic [address] [address] Irma Paredes MD [address] [address] Systemic lupus erythematosus (H) (Primary Dx) Social History Tobacco Use Types Packs/Day Years [...] encounter Miscellaneous Notes * Telephone Encounter - Irma Paredes MD - 06/30/2015 5:53 PM CUSTOMER ENGINEER Sent tonight! Thanks! OMER ENGINEER documented in this encounter Plan of Treatment Not on file documented as of this encounter Visit Diagnoses Diagnosis Systemic lupus erythematosus (H)- Primary Systemic lupus erythematosus documented in this encounter Care Teams Test Engine Operator Relationship Specialty Start Date End Date No Ref-Primary, Physician PCP - General 07/22/17 Adrián Guzman PA-C [address] [place] [address] PCP - Assigned PCP 07/28/17 08/30/18 Ravin Freeman PA-C [address] [place] [address] PCP - Assigned PCP 08/31/18 10/14/18 Irma Paredes MD Resident Rheumatology 12/31/14 10/07/18 Lashanda Crocker, PhD LP 9 [place] [address] Psychology 12/31/14 Ravin Freeman PA-C [address] [place], [place] [address] Assigned PCP 08/31/18 08/01/19 documented as of this encounter
--- OUTSIDE RECORDS SUMMARY | 2023-11-28 10:53 | XMS_ITS | Encounter Summary ---
Author Name Unknown Organization [place] Address [address] [place] [address]. [place] [address] Care Team Providers Care Sprinkler Installer Name Role Phone Irma Paredes MD Unavailable [phone] Lashanda Crocker PhD LP Unavailable [phone] No Ref-Primary, Physician Primary Care Provider Adrián Guzman PA-C Unavailable Ravin Freeman PA-C Unavailable Ravin Freeman PA-C Unavailable Reason for Visit * Reason Onset Date Comments Medication Request 10/20/2015 Test strips Encounter Details Date Type Department Care Team (Late st Contact Info) Description 10/20/2015 [facility] Medical Advice [address], [address] [place] [address] Adrián Guzman PA-C [address] [place] [address] Medication Request (Test strips) Social History Tobacco Use Types Packs/Day Years [...] convulsions documented in this encounter Care Teams Sprinkler Installer Relationship Specialty Start Date End Date No Ref-Primary, Physician PCP - General 07/22/17 Adrián Guzman PA-C [address] [place] [address] PCP - Assigned PCP 07/28/17 08/30/18 Ravin Freeman PA-C [address] [place], [place] [address] PCP - Assigned PCP 08/31/18 10/14/18 Irma Paredes MD Resident Rheumatology 12/31/14 10/07/18 Lashanda Crocker, PhD LP 9 [place] [address] Psychology 12/31/14 Ravin Freeman PA-C [address] [place] [address] Assigned PCP 08/31/18 08/01/19 documented as of this encounter
--- OUTSIDE RECORDS SUMMARY | 2023-11-28 10:53 | XMS_ITS | Encounter Summary ---
Author Name Unknown Organization [place] Address [facility] [place] [address] Care Team Providers Care Farm Machinery Erector Name Role Phone Irma Paredes MD Unavailable [phone] Lashanda Crocker PhD LP Unavailable [phone] No Ref-Primary, Physician Primary Care Provider Adrián Guzman PA-C Unavailable Ravin Freeman PA-C Unavailable Ravin Freeman PA-C Unavailable Encounter Details Date Type Department Care Team (Late st Contact Info) Description 09/08/2015 MyC Medical Advice [facility] Adult Rheumatology 2nd Floor, Clinic [address]A [address] [address] Irma Paredes MD [address] [place] [address] Social History Tobacco Use Types Packs/Day Years [...] on filedocumented in this encounter Care Teams Farm Machinery Erector Relationship Specialty Start Date End Date No Ref-Primary, Physician PCP - General 07/22/17 Adrián Guzman PA-C [address] [place] [address] PCP - Assigned PCP 07/28/17 08/30/18 Ravin Freeman PA-C [address] [place], [place] [address] PCP - Assigned PCP 08/31/18 10/14/18 Irma Paredes MD Resident Rheumatology 12/31/14 10/07/18 Lashanda Crocker, PhD LP 9 [place] [address] Psychology 12/31/14 Ravin Freeman PA-C [address] [place] [address] Assigned PCP 08/31/18 08/01/19 documented as of this encounter
--- OUTSIDE RECORDS SUMMARY | 2023-11-28 10:53 | XMS_ITS | Encounter Summary ---
Author Name Unknown Organization [place] Address [facility] [place] [address] Care Team Providers Care Termite Control Representative Name Role Phone Irma Paredes MD Unavailable [phone] Lashanda Crcoker PhD LP Unavailable [phone] No Ref-Primary, Physician Primary Care Provider Adrián Guzman PA-C Unavailable Ravin Freeman PA-C Unavailable Ravin Freeman PA-C Unavailable Encounter Details Date Type Department Care Team (Late st Contact Info) Description 10/10/2015 MyC Medical Advice [facility] Adult Rheumatology 2nd Floor, Clinic [address]A [address] [phone] Irma Paredes MD [address] [place] [address] Social History Tobacco Use Types Packs/Day Years [...] on filedocumented in this encounter Care Teams Termite Control Representative Relationship Specialty Start Date End Date No Ref-Primary, Physician PCP - General 07/22/17 Adrián Guzman PA-C [address] [place] [address] PCP - Assigned PCP 07/28/17 08/30/18 Ravin Freeman PA-C [address] [place], [place] [address] PCP - Assigned PCP 08/31/18 10/14/18 Irma Paredes MD Resident Rheumatology 12/31/14 10/07/18 Lashanda Crocker, PhD LP 909 [place] [address] Psychology 12/31/14 Ravin Freeman PA-C [address] [place] [address] Assigned PCP 08/31/18 08/01/19 documented as of this encounter
--- OUTSIDE RECORDS SUMMARY | 2023-11-28 10:53 | XMS_ITS | Encounter Summary ---
Author Name Unknown Organization [place] Address [facility]ly [facility] [place] [address] Care Team Providers Care Dermatology Nurse Practitioner Name Role Phone Irma Paredes MD Unavailable [phone] Lashanda Crocker PhD LP Unavailable [phone] No Ref-Primary, Physician Primary Care Provider Adrián Guzman PA-C Unavailable Ravin Freeman PA-C Unavailable Ravin Freeman PA-C Unavailable Reason for Referral * Consultation - Closed Specialty Diagnoses / Procedures Referred By Francisca murrieta Referred To Contact Diagnoses Low serum C-peptide Bernie Oliveira PA-C [address] [place] [address] [facility] Referral ID Status Reason Start Date Expiration Date Visits Re quested Visits Authorized [id number] Closed 05/10/2016 05/10/2017 1 1 Comments Your provider has referred you to: FM[facility]: [facility] [email or web address] Please be aware that coverage of these services is subject to the terms and limitations of your health insurance plan. Call member services at your health plan with any benefit or coverage questions. Please bring the following to your appointment: >> Any x-rays, CTs or MRIs which have been performed. Contact the facility where they were done to arrange for vegetable picker prior to your scheduled appointment. >> List of current medications >> This referral request >> Any documents/labs given to you for this referral Reason for Visit * Reason Onset Date Comments MyChart Communication 05/10/2016 lab result s Encounter Details Date Type Department Care Team (Late st Contact Info) Description 05/10/2016 [facility] [id number] [place] [phone] Bernie Oliveira PA-C [address] [place] [phone] MyChart Communication (lab results) Social History Tobacco Use Types Packs/Day Years [...] Telephone Encounter - Shelly Zambrano RN - 05/10/2016 2:58 PM CDT Routing to Bernie. Shelly Zambrano RN documented in this encounter Plan of Treatment Scheduled Referrals Name Type Priority Associated Diagnoses Orde r Schedule ENDOCRINOLOGY ADULT REFERRAL Referral Routine Low serum C-peptide Ordered: 05/10/2016 documented as of this encounter Visit Diagnoses Diagnosis Low serum C-peptide- Primary documented in this encounter Additional Health Concerns Assessment Noted Time PHQ-9 Depression Total Score: 12 016 7:14 AM CDT documented as of this encounter Care Teams Dermatology Nurse Practitioner Relationship Specialty Start Date End Date No Ref-Primary, Physician PCP - General 07/22/17 Adrián Guzman PA-C [address] [place] [address] PCP - Assigned PCP 07/28/17 08/30/18 Ravin Freeman PA-C [address] [place] [address] PCP - Assigned PCP 08/31/18 10/14/18 Irma Paredes MD Resident Rheumatology 12/31/14 10/07/18 Lashanda Crocker, PhD LP 9 [place] [address] Psychology 12/31/14 Ravin Freeman PA-C [address] [place] [address] Assigned PCP 08/31/18 08/01/19 documented as of this encounter
--- OUTSIDE RECORDS SUMMARY | 2023-11-28 10:53 | XMS_ITS | Encounter Summary ---
Author Name Unknown Organization [place] Address [facility] [place] [address] Care Team Providers Care User Interface Developer Name Role Phone Irma Paredes MD Unavailable [phone] Lashanda Crocker PhD LP Unavailable [phone] No Ref-Primary, Physician Primary Care Provider Adrián Guzman PA-C Unavailable Ravin Freeman PA-C Unavailable Ravin Freeman PA-C Unavailable [phone] Encounter Details Date Type Department Care Team (Late st Contact Info) Description 05/20/2015 My[facility] Medical Advice [facility] Adult Rheumatology 2nd Floor, Clinic [address] [phone] Irma Praedes MD [address] [place] [address] Social History Tobacco Use Types Packs/Day Years [...] on filedocumented in this encounter Care Teams User Interface Developer Relationship Specialty Start Date End Date No Ref-Primary, Physician PCP - General 07/22/17 Adrián Guzman PA-C [address] [place] [address] PCP - Assigned PCP 07/28/17 08/30/18 Ravin Freeman PA-C [address] [place], [place] [id number] PCP - Assigned PCP 08/31/18 10/14/18 Irma Paredes MD Resident Rheumatology 12/31/14 10/07/18 Lashanda Crocker, PhD LP 9 [place] [address] Psychology 12/31/14 Ravin Freeman PA-C [address] [place] [address] Assigned PCP 08/31/18 08/01/19 documented as of this encounter
--- OUTSIDE RECORDS SUMMARY | 2023-11-28 10:53 | XMS_ITS | Encounter Summary ---
Author Name Unknown Organization [place] Address [address] [place] [address] Care Team Providers Care Gamb Cutter Name Role Phone Irma Paredes MD Unavailable Lashanda Crocker PhD LP Unavailable No Ref-Primary, Physician Primary Care Provider Adrián Guzman PA-C Unavailable Ravin Freeman PA-C Unavailable Ravin Freeman PA-C Unavailable Reason for Visit * Reason Onset Date Comments MyChart Communication 07/22/2017 plaquenil dose Encounter Details Date Type Department Care Team (Latest Contact Info) Description 07/22/2017 MyC Medical Advice [facility] [address] [place] [phone] [facility] [address] [place] [address] MyChart Communication (plaquenil dose) Social History Tobacco Use Types Packs/Day Years [...] documented as of this encounter Care Teams Gamb Cutter Relationship Specialty Start Date End Date No Ref-Primary, Physician PCP - General 07/22/17 Adrián Guzman PA-C [address] [place] [address] PCP - Assigned PCP 07/28/17 08/30/18 Ravin Freeman PA-C [address] [place] [address] PCP - Assigned PCP 08/31/18 10/14/18 Irma Paredes MD Resident Rheumatology 12/31/14 10/07/18 Lashanda Crocker, PhD LP 909 [place] [address] Psychology 12/31/14 Ravin Freeman PA-C [address] [place] [address] Assigned PCP 08/31/18 08/01/19 documented as of this encounter
--- OUTSIDE RECORDS SUMMARY | 2023-11-28 10:53 | XMS_ITS | Encounter Summary ---
Author Name Unknown Organization [place] Address [facility] [place] [address] Care Team Providers Care Area Director Of Home Health Sales Name Role Phone Irma Paredes MD Unavailable Lashanda Crocker PhD LP Unavailable [phone] No Ref-Primary, Physician Primary Care Provider Adrián Guzman PA-C Unavailable Ravin Freeman PA-C Unavailable [phone] Ravin Freeman PA-C Unavailable Encounter Details Date Type Department Care Team (Late st Contact Info) Description 05/10/2015 MyC Medical Advice [facility] Adult Rheumatology 2nd Floor, Clinic [address] [phone] Irma Paredes MD [address] [place] [address] Social History Tobacco Use Types Packs/Day Years [...] on filedocumented in this encounter Care Teams Area Director Of Home Health Sales Relationship Specialty Start Date End Date No Ref-Primary, Physician PCP - General 07/22/17 Adrián Guzman PA-C [address] [place] [address] PCP - Assigned PCP 07/28/17 08/30/18 Ravin Freeman PA-C [address] [place], [place] [id number] PCP - Assigned PCP 08/31/18 10/14/18 Irma Paredes MD Resident Rheumatology 12/31/14 10/07/18 Lashanda Crocker, PhD LP 9 [place] [address] Psychology 12/31/14 Ravin Freeman PA-C [address] [place] [address] Assigned PCP 08/31/18 08/01/19 documented as of this encounter
--- OUTSIDE RECORDS SUMMARY | 2023-11-28 10:53 | XMS_ITS | Encounter Summary ---
Author Name Unknown Organization [place] Address [facility] [place] [address] Care Team Providers Care Cushion Builder Name Role Phone Irma Paredes MD Unavailable Lashanda Crocker PhD LP Unavailable No Ref-Primary, Physician Primary Care Provider Adrián Guzman PA-C Unavailable Ravin Freeman PA-C Unavailable Ravin Freeman PA-C Unavailable Encounter Details Date Type Department Care Team (Late st Contact Info) Description 05/22/2015 MyC Medical Advice [facility] Adult Rheumatology 2nd Floor, Clinic [address] [phone] Irma Paredes MD [address] [place] [address] Social History Tobacco Use Types Packs/Day Years [...] on filedocumented in this encounter Care Teams Cushion Builder Relationship Specialty Start Date End Date No Ref-Primary, Physician PCP - General 07/22/17 Adrián Guzman PA-C [address] [place] [address] PCP - Assigned PCP 07/28/17 08/30/18 Ravin Freeman PA-C [address] [place], [place] [phone] PCP - Assigned PCP 08/31/18 10/14/18 Irma Paredes MD Resident Rheumatology 12/31/14 10/07/18 Lashanda Crocker, PhD LP 9 [place] [address] Psychology 12/31/14 Ravin Freeman PA-C [address] [place] [address] Assigned PCP 08/31/18 08/01/19 documented as of this encounter
--- OUTSIDE RECORDS SUMMARY | 2023-11-28 10:53 | XMS_ITS | Encounter Summary ---
Author Name Unknown Organization [place] Address [address] [place] [address]. [place] [address] Care Team Providers Care Gyroscopic Instrument Tester Name Role Phone Irma Paredes MD Unavailable [phone] Lashanda Crocker PhD LP Unavailable No Ref-Primary, Physician Primary Care Provider Adrián Guzman PA-C Unavailable Ravin Freeman PA-C Unavailable Ravin Freeman PA-C Unavailable Reason for Visit * Reason Onset Date Comments Pruritis 10/05/2015 Itching Encounter Details Date Type Department Care Team (Late st Contact Info) Description 10/05/2015 MyC Medical Advice [address], [address] [place] [address] Adrián Guzman PA-C [address] [place] [address] Pruritis (Itching) Social History Tobacco Use Types Packs/Day Years [...] on filedocumented in this encounter Care Teams Gyroscopic Instrument Tester Relationship Specialty Start Date End Date No Ref-Primary, Physician PCP - General 07/22/17 Adrián Guzman PA-C [address] [place] [address] PCP - Assigned PCP 07/28/17 08/30/18 Ravin Freeman PA-C [address] [place], [place] [id number] PCP - Assigned PCP 08/31/18 10/14/18 Irma Paredes MD Resident Rheumatology 12/31/14 10/07/18 Lashanda Crocker, PhD LP [address]09 [place] [address] Psychology 12/31/14 Ravin Freeman PA-C [address] [place] [address] Assigned PCP 08/31/18 08/01/19 documented as of this encounter
--- OUTSIDE RECORDS SUMMARY | 2023-11-28 10:53 | XMS_ITS | Encounter Summary ---
Author Name Unknown Organization [place] Address [address] [place] [address] Care Team Providers Care Compliance Clerk Name Role Phone Irma Paredes MD Unavailable [phone] Lashanda Crocker PhD LP Unavailable [phone] No Ref-Primary, Physician Primary Care Provider Adrián Guzman PA-C Unavailable Ravin Freeman PA-C Unavailable Ravin Freeman PA-C Unavailable [phone] Reason for Visit * Reason Onset Date Comments Medication Question 12/21/2015 topamax Encounter Details Date Type Department Care Team (Late st Contact Info) Description 12/21/2015 [facility] [place] [facility] [address] [place], [place] [phone] Courtney Glover DO [facility] [address] [place], [place] [phone] Medication Question (topamax) Social History Tobacco Use Types Packs/Day Years [...] encounter Miscellaneous Notes * Telephone Encounter - Jihan Cr RN - 01/10/2016 11:13 AM CDT Called pt and LM asking for an update on how she was taking the topiramate 25 tabs since we have received a refill request of this medication (see separate refill encounter) and would like to processthe most appropriate refill. LM that we had sent a message on 12/[address] Glover's response about her report of tingly sensations and haven't heard back from her. Asked that she either call the nurseline with an update or send a Vega-Chit message. MORGAN Dumont, RN- Patient Care Accounting System Expert/Fiscal Specialist [facility] * Telephone Encounter - Jihan Cr RN - 12/26/2015 11:37 AM CDT Pt read the last message on 12/20 shortly after it was sent. Will await update from pt. MORGAN Dumont, RN- Patient Care Accounting System Expert/Fiscal Specialist [facility] * Telephone Encounter - Jihan Cr RN - 12/21/2015 4:06 PM CDT Message sent to pt: Dr. Belen Patel had a chance to review your messages and said that the tingly sensation is commonly reported when starting this medication. She recommends increasing your water intake and slowing down on the dose increases until the symptoms have subsided. If the sensation is too bothersome you should discontinue it. Please let us know what you decide to do. Take care, MORGAN Dumont, RN- Patient Care Accounting System Expert/Fiscal Specialist [facility] * Telephone Encounter - Courtney Glover DO - 12/21/2015 3:04 PM CDT The tingly sensation is commonly reported when starting this medication. I typically recommend to increase water intake, and slow down on the taper until the symptoms have subsided. If the sensation is bothersome, which it sounds like it is, she should discontinue it. Courtney Glover DO [facility] [place] * Telephone Encounter - Jihan Cr RN - 12/21/2015 2:19 PM CDT Pt reported taking only 25 mg at bedtime and this is the initial dose that was ordered. MORGAN Dumont, RN- Patient Care Accounting System Expert/Fiscal Specialist [facility] * Telephone Encounter - Courtney Glover DO - 12/21/2015 1:38 PM CDT The prickly/tingly feeling can be due to the topamax. What dose is she taking? She should decrease back to the dose she was on prior to getting the tingly feeling. Courtney Glover DO [facility] * Telephone Encounter - Jihan Cr RN - 12/21/2015 1:24 PM CDT Called pt. Pt said that what she is experiencing may be related to an autonomic response related toanxiety. This nurse let her know that it may be related to the initiation of topamax as well. Pt istaking 25 mg at bedtime. Pt reports that a typical allergic reaction for her involves itching but not the prickly feeling. States that she feels prickly/tingly all over her body; in her ears, deep inside her body and head; feels like head is tingling. In regard to the effectiveness of the topamax, pt states that she hasn't had a migraine in 5 days. She typically has them more frequently. Pt is scheduled for a return visit with Dr. Glover on 01/23. Will have Dr. Glover review information andget back to patient today re: continued use of topamax. MORGAN Dumont, RN- Patient Care Accounting System Expert/Fiscal Specialist [facility] * Telephone Encounter - Jihan Cr RN - 12/21/2015 1:05 PM CDT Message from pt today at 0828: Dr. Glover: It's been 2 days and the prickly itching with flushed skin hasn't stopped. it's worse at night and it's preventing me from sleeping. Benadryl isn't helping anymore. I don't know what's wrong and I'm so exhausted I cant barely function. Could it be related to a hyper-sensitive nerve issue? I really need help. I'm going crazy and no one seems to want to help me. I've spoken to another PCP and my pharmacist and I've gotten blown off. Meanwhile, I am getting no rest and I am in extreme discomfort. Message from pt 12/18 at 0947: Dr. Glover, Is it possible to have a delayed reaction to Topamax? On the drive to work, I had terrible prickly itching, shaking and feelings of heat pouring over me. I took Benadryl a few hours ago and I still have the prickly feeling which is finally starting to subside a little. I called the pharmacist and he said it would be odd to react 5 days after starting a medication. Just trying to figure out why this happened so I can avoid it happening again. It was awful! Thank you for any input you can lend!! documented in this encounter Plan of Treatment Not on file documented as of this encounter Visit Diagnoses Not on filedocumented in this encounter Additional Health Concerns Assessment Noted Time PHQ-9 Depression Total Score: 12 11/22/2 016 7:14 AM CDT documented as of this encounter Care Teams Compliance Clerk Relationship Specialty Start Date End Date No Ref-Primary, Physician PCP - General 07/22/17 Adrián Guzman PA-C [address] [facility] [address] PCP - Assigned PCP 07/28/17 08/30/18 Ravin Freeman PA-C [address] [place], [place] [phone] PCP - Assigned PCP 08/31/18 10/14/18 Irma Paredes MD Resident Rheumatology 12/31/14 10/07/18 Lashanda Crocker, PhD LP [address] [place] [address] Psychology 12/31/14 Ravin Freeman PA-C [address] [place] [address] Assigned PCP 08/31/18 08/01/19 documented as of this encounter
--- OUTSIDE RECORDS SUMMARY | 2023-11-28 10:53 | XMS_ITS | Encounter Summary ---
Author Name Unknown Organization [place] Address [facility] [place] [address] Care Team Providers Care Photostatic Copy Maker Name Role Phone Irma Paredes MD Unavailable Lashanda Crocker PhD LP Unavailable [phone] No Ref-Primary, Physician Primary Care Provider Adrián Guzman PA-C Unavailable Ravin Freeman PA-C Unavailable [phone] Ravin Freeman PA-C Unavailable [phone] Encounter Details Date Type Department Care Team (Late st Contact Info) Description 11/22/2015 MyC Medical Advice [facility] Adult Rheumatology 2nd Floor, Clinic [address] [phone] Irma Paredes MD [address] [place] [address] Social History Tobacco Use Types Packs/Day Years [...] documented as of this encounter Care Teams Photostatic Copy Maker Relationship Specialty Start Date End Date No Ref-Primary, Physician PCP - General 07/22/17 Adrián Guzman PA-C [address] [place] [address] PCP - Assigned PCP 07/28/17 08/30/18 Ravin Freeman PA-C [address] [place], [place] [phone] PCP - Assigned PCP 08/31/18 10/14/18 Irma Paredes MD Resident Rheumatology 12/31/14 10/07/18 Lashanda Crocker, PhD LP 9 [place] [address] Psychology 12/31/14 Ravin Freeman PA-C [address] [place] [address] Assigned PCP 08/31/18 08/01/19 documented as of this encounter
--- OUTSIDE RECORDS SUMMARY | 2023-11-28 10:53 | XMS_ITS | Encounter Summary ---
Author Name Unknown Organization [place] Address [facility] [place] [address] Care Team Providers Care Ultrasonographer Name Role Phone rIma Paredes MD Unavailable Lashanda Crocker PhD LP Unavailable [phone] No Ref-Primary, Physician Primary Care Provider Adrián Guzman PA-C Unavailable Ravin Freeman PA-C Unavailable Ravin Freeman PA-C Unavailable Encounter Details Date Type Department Care Team (Latest Contact Info) Description 06/16/2015 MyC Medical Advice [facility] Adult Rheumatology 2nd Floor, Clinic [address] [phone] Irma Paredes MD [address] [place] [address] Systemic lupus erythematosus (Primary Dx); Long-term use of Plaquenil; Encounter for monitoring of methotrexate therapy Social History Tobacco Use Types Packs/Day Years [...] on file documented as of this encounter Results * CRP inflammation (07/15/2015 10:01 AM DREDGE WORKER) Pathologist [facility] CRP Inflammation <2.9 0.0 - 8.0 mg/L [facility] Blood specimen (specimen) 07/15/2015 10:01 AM DREDGE WORKER 07/15/2015 10:02 AM DREDGE WORKER Irma Paredes MD LAB - BLOOD MIRELLA LEON [facility] [address] [place] [address] * (ABNORMAL) ESR (07/15/2015 10:01 AM DREDGE WORKER) [facility] Sed Rate 24(H) 0 - 20 mm/h [facility] Blood specimen (specimen) 07/15/2015 10:01 AM DREDGE WORKER 07/15/2015 10:02 AM DREDGE WORKER Irma Paredes MD LAB - BLOOD MIRELLA LEON Performing Organization Address City/[facility]/ZIP Co de Phone Number [place] [address] * Comprehensive metabolic panel (07/15/2015 10:01 AM DREDGE WORKER) [facility] Sodium 138 133 - 144 mmol/L [facility] Potassium 4.0 3.4 - 5.3 mmol/L [facility] Chloride 106 94 - 109 mmol/L [facility] Carbon Dioxide 25 20 - 32 mmol/L [facility] Anion Gap 7 3 - 14 mmol/L [facility] Glucose 94 70 - 99 mg/dL [facility] Urea Nitrogen 13 7 - 30 mg/dL [facility] Creatinine 0.77 0.52 - 1.04 mg/dL [facility] GFR Estimate 86 >60 mL/min/1. 7m2 [facility] Comment:Non GFR Calc GFR Estimate If Black >90 GFR Calc >60 mL/min/1. 7m2 [facility] Calcium 8.9 8.5 - 10.1 mg/dL [facility] Bilirubin Total 0.4 0.2 - 1.3 mg/dL [facility] Albumin 3.9 3.4 - 5.0 g/dL [facility] Protein Total 7.5 6.8 - 8.8 g/dL [facility] Alkaline Phosphatase 46 40 - 150 U/L [facility] ALT 22 0 - 50 U/L [facility] AST 15 0 - 45 U/L [facility] Blood specimen (specimen) 07/15/2015 10:01 AM DREDGE WORKER 07/15/2015 10:02 AM DREDGE WORKER Irma Paredes MD LAB - BLOOD MIRELLA LEON [facility] [address] [place] [address] * CBC with platelets differential (07/15/2015 10:01 AM DREDGE WORKER) WBC 7.7 4.0 - 11.0 10e9/L [facility] RBC Count 4.10 3.8 - 5.2 10e12/L [facility] Hemoglobin 11.8 11.7 - 15.7 g/dL [facility] Hematocrit 35.3 35.0 - 47.0 % [facility] MCV 86 78 - 100 fl [facility] MCH 28.8 26.5 - 33.0 pg [facility] MCHC 33.4 31.5 - 36.5 g/dL [facility] RDW 13.7 10.0 - 15.0 % [facility] Platelet Count 296 150 - 450 10e9/L [facility] Diff Method Automated Method [facility] % Neutrophils 68.4 % [facility] % Lymphocytes 23.9 % [facility] % Monocytes 5.9 % [facility] % Eosinophils 1.4 % [facility] % Basophils 0.4 % [facility] Absolute Neutrophil 5.3 1.6 - 8.3 10e9/L [facility] Absolute Lymphocytes 1.9 0.8 - 5.3 10e9/L [facility] Absolute Monocytes 0.5 0.0 - 1.3 10e9/L [facility] Absolute Eosinophils 0.1 0.0 - 0.7 10e9/L [facility] Absolute Basophils 0.0 0.0 - 0.2 10e9/L [facility] Blood specimen (specimen) 07/15/2015 10:01 AM DREDGE WORKER 07/15/2015 10:02 AM DREDGE WORKER Irma Paredes MD LAB - BLOOD [facility]RELLA [place] [address] documented in this encounter Visit Diagnoses Diagnosis Systemic lupus erythematosus- Primary Long-term use of Plaquenil Encounter for monitoring of methotrexate therapy documented in this encounter Care Teams Ultrasonographer Relationship Specialty Start Date End Date No Ref-Primary, Physician PCP - General 07/22/17 Adrián Guzman PA-C [address] [place] [address] PCP - Assigned PCP 07/28/17 08/30/18 Ravin Freeman PA-C [address] [place] [address] PCP - Assigned PCP 08/31/18 10/14/18 Irma Paredes MD Resident Rheumatology 12/31/14 10/07/18 Lashanda Crocker, PhD LP [address] [place] [address] Psychology 12/31/14 Ravin Freeman PA-C [address] [place] [address] Assigned PCP 08/31/18 08/01/19 documented as of this encounter
--- OUTSIDE RECORDS SUMMARY | 2023-11-28 10:53 | XMS_ITS | Encounter Summary ---
Author Name Unknown Organization [place] Address [facility] [place] [address] Care Team Providers Care Sprue Cutting Press Operator Name Role Phone Irma Paredes MD Unavailable [phone] Lashanda Crocker PhD LP Unavailable [phone] No Ref-Primary, Physician Primary Care Provider Adrián Guzman PA-C Unavailable Ravin Freeman PA-C Unavailable Ravin Freeman PA-C Unavailable Encounter Details Date Type Department Care Team (Late st Contact Info) Description 07/19/2015 MyC Medical Advice [facility] Adult Rheumatology 2nd Floor, Clinic [address] [phone] Irma Paredes MD [address] [place] [address] Social History Tobacco Use Types Packs/Day Years [...] on filedocumented in this encounter Care Teams Sprue Cutting Press Operator Relationship Specialty Start Date End Date No Ref-Primary, Physician PCP - General 07/22/17 Adrián Guzman PA-C [address] [place] [address] PCP - Assigned PCP 07/28/17 08/30/18 Ravin Freeman PA-C [address] [place], [place] [id number] PCP - Assigned PCP 08/31/18 10/14/18 Irma Paredes MD Resident Rheumatology 12/31/14 10/07/18 Lashanda Crocker, PhD LP 9 [place] [address] Psychology 12/31/14 Ravin Freeman PA-C [address] [place] [address] Assigned PCP 08/31/18 08/01/19 documented as of this encounter
--- OUTSIDE RECORDS SUMMARY | 2023-11-28 10:54 | XMS_ITS | Encounter Summary ---
Author Name Unknown Organization [place] Address [facility] [place] [address] Care Team Providers Care Sheriff Sergeant Name Role Phone Irma Paredes MD Unavailable Lashanda Crocker PhD LP Unavailable [phone] No Ref-Primary, Physician Primary Care Provider Adrián Guzman PA-C Unavailable Ravin Freeman PA-C Unavailable [phone] Ravin Freeman PA-C Unavailable [phone] Encounter Details Date Type Department Care Team (Late st Contact Info) Description 12/31/2014 MyC Medical Advice [facility] Adult Rheumatology 2nd Floor, Clinic [address] [phone] Irma Paredes MD [address] [place] [address] Social History Tobacco Use Types Packs/Day Years [...] on filedocumented in this encounter Care Teams Sheriff Sergeant Relationship Specialty Start Date End Date No Ref-Primary, Physician PCP - General 07/22/17 Adrián Guzman PA-C [address] [place] [address] PCP - Assigned PCP 07/28/17 08/30/18 Ravin Freeman PA-C [address] [place], [place] [id number] PCP - Assigned PCP 08/31/18 10/14/18 Irma Paredes MD Resident Rheumatology 12/31/14 10/07/18 Lashanda Crocker, PhD LP 9 [place] [address] Psychology 12/31/14 Ravin Freeman PA-C [address] [place] [address] Assigned PCP 08/31/18 08/01/19 documented as of this encounter
--- OUTSIDE RECORDS SUMMARY | 2023-11-28 10:54 | XMS_ITS | Encounter Summary ---
Author Name Unknown Organization [place] Address [facility]0 [facility] [place] [address] Care Team Providers Care Family Court Counsellor Name Role Phone Irma Paredes MD Unavailable Lashanda Crocker PhD LP Unavailable [phone] No Ref-Primary, Physician Primary Care Provider Adrián Guzman PA-C Unavailable Ravin Freeman PA-C Unavailable [phone] Ravin Freeman PA-C Unavailable Encounter Details Date Type Department Care Team (Late st Contact Info) Description 12/31/2014 MyC Medical Advice [facility] Adult Rheumatology 2nd Floor, Clinic [address] [address] Irma Paredes MD [address] [place] [address] Social History Tobacco Use Types Packs/Day Years [...] on filedocumented in this encounter Care Teams Family Court Counsellor Relationship Specialty Start Date End Date No Ref-Primary, Physician PCP - General 07/22/17 Adrián Guzman PA-C [address] [place] [address] PCP - Assigned PCP 07/28/17 08/30/18 Ravin Freeman PA-C [address] [place], [place] [id number] PCP - Assigned PCP 08/31/18 10/14/18 Irma Paredes MD Resident Rheumatology 12/31/14 10/07/18 Lashanda Crocker, PhD LP 9 [place] [address] Psychology 12/31/14 Ravin Freeman PA-C [address] [place] [address] Assigned PCP 08/31/18 08/01/19 documented as of this encounter
--- OUTSIDE RECORDS SUMMARY | 2023-11-28 10:54 | XMS_ITS | Encounter Summary ---
Author Name Unknown Organization [place] Address [facility] [place] [address] Care Team Providers Care Food Taster Name Role Phone Irma Paredes MD Unavailable Lashanda Crocker PhD LP Unavailable [phone] No Ref-Primary, Physician Primary Care Provider Adrián Guzman PA-C Unavailable Ravin Freeman PA-C Unavailable Ravin Freeamn PA-C Unavailable Encounter Details Date Type Department Care Team (Late st Contact Info) Description 01/06/2015 MyC Medical Advice [facility] Adult Rheumatology 2nd Floor, Clinic [address] [address] Irma Paredes MD [address] [place] [address] Social History Tobacco Use Types Packs/Day Years [...] on filedocumented in this encounter Care Teams Food Taster Relationship Specialty Start Date End Date No Ref-Primary, Physician PCP - General 07/22/17 Adrián Guzman PA-C [address] [place] [address] PCP - Assigned PCP 07/28/17 08/30/18 Ravin Freeman PA-C [address] [place], [place] [id number] PCP - Assigned PCP 08/31/18 10/14/18 Irma Paredes MD Resident Rheumatology 12/31/14 10/07/18 Lashanda Crocker, PhD LP 9 [place] [address] Psychology 12/31/14 Ravin Freeman PA-C [address] [place] [address] Assigned PCP 08/31/18 08/01/19 documented as of this encounter
--- OUTSIDE RECORDS SUMMARY | 2023-11-28 10:54 | XMS_ITS | Continuity of Care Document ---
Author Name [facility] Organization [facility] Care Team Providers Care Grounds Foreman Name Role Phone [facility] Unavailable Unavailable Social History Combined list of available smoking, tobacco, and other social history from Department of Defense and Veterans Affairs facilities. Social History Type Response Date Comment Sourc e This section is an empty social history section. [facility]
--- OUTSIDE RECORDS SUMMARY | 2023-11-28 10:54 | XMS_ITS | Encounter Summary ---
Author Name Unknown Organization [place] Address [facility]0 [facility] [address] Care Team Providers Care Production Line Solderer Name Role Phone Irma Paredes MD Unavailable Lashanda Crocker PhD LP Unavailable [phone] No Ref-Primary, Physician Primary Care Provider Adrián Guzman PA-C Unavailable Ravin Freeman PA-C Unavailable Ravin Freeman PA-C Unavailable Encounter Details Date Type Department Care Team (Late st Contact Info) Description 12/31/2014 MyC Medical Advice [facility] Adult Rheumatology 2nd Floor, Clinic [address] [address] Irma Paredes MD [address] [place] [address] Social History Tobacco Use Types Packs/Day Years [...] on filedocumented in this encounter Care Teams Production Line Solderer Relationship Specialty Start Date End Date No Ref-Primary, Physician PCP - General 07/22/17 Adrián Guzman PA-C [address] [place] [address] PCP - Assigned PCP 07/28/17 08/30/18 Ravin Freeman PA-C [address] [place], [place] [id number] PCP - Assigned PCP 08/31/18 10/14/18 Irma Praedes MD Resident Rheumatology 12/31/14 10/07/18 Lashanda Crocker, PhD LP 9 [place] [address] Psychology 12/31/14 Ravin Freeman PA-C [address] [place] [address] Assigned PCP 08/31/18 08/01/19 documented as of this encounter
--- OUTSIDE RECORDS SUMMARY | 2023-11-28 10:54 | XMS_ITS | Encounter Summary ---
Author Name Unknown Organization [place] Address [facility]0 [facility] [place] [address] Care Team Providers Care Resin Maker Name Role Phone Irma Paredes MD Unavailable Lashanda Crocker PhD LP Unavailable [phone] No Ref-Primary, Physician Primary Care Provider Adrián Guzman PA-C Unavailable Ravin Freeman PA-C Unavailable [phone] Ravin Freeman PA-C Unavailable [phone] Encounter Details Date Type Department Care Team (Late st Contact Info) Description 12/27/2014 MyC Medical Advice [facility] Adult Rheumatology 2nd Floor, Clinic [address] [address] Irma Paredes MD [address] [place] [address] Social History Tobacco Use Types Packs/Day Years [...] on filedocumented in this encounter Care Teams Resin Maker Relationship Specialty Start Date End Date No Ref-Primary, Physician PCP - General 07/22/17 Adrián Guzman PA-C [address] [place] [address] PCP - Assigned PCP 07/28/17 08/30/18 Ravin Freeman PA-C [address] [place], [place] [id number] PCP - Assigned PCP 08/31/18 10/14/18 Irma Paredes MD Resident Rheumatology 12/31/14 10/07/18 Lashanda Crocker, PhD LP 9 [place] [address] Psychology 12/31/14 Ravin Freeman PA-C [address] [place] [address] Assigned PCP 08/31/18 08/01/19 documented as of this encounter
--- OUTSIDE RECORDS SUMMARY | 2023-11-28 10:54 | XMS_ITS | Encounter Summary ---
Author Name Unknown Organization [place] Address [facility]0 [facility] [place] [address] Care Team Providers Care Legal Instruments Examiner Name Role Phone Irma Paredes MD Unavailable Lashanda Crocker PhD LP Unavailable [phone] No Ref-Primary, Physician Primary Care Provider Adrián Guzman PA-C Unavailable Ravin Freeman PA-C Unavailable Ravin Freeman PA-C Unavailable Encounter Details Date Type Department Care Team (Late st Contact Info) Description 12/28/2014 MyC Medical Advice [facility] Adult Rheumatology 2nd Floor, Clinic [address] [address] Irma Paredes MD [address] [place] [address] Social History Tobacco Use Types Packs/Day Years [...] on filedocumented in this encounter Care Teams Legal Instruments Examiner Relationship Specialty Start Date End Date No Ref-Primary, Physician PCP - General 07/22/17 Adrián Guzman PA-C [address] [place] [address] PCP - Assigned PCP 07/28/17 08/30/18 Ravin Freeman PA-C [address] [place], [place] [id number] PCP - Assigned PCP 08/31/18 10/14/18 Irma Paredes MD Resident Rheumatology 12/31/14 10/07/18 Lashanda Crocker, PhD LP 9 [place] [address] Psychology 12/31/14 aRvin Freeman PA-C [address] [place] [address] Assigned PCP 08/31/18 08/01/19 documented as of this encounter
--- OUTSIDE RECORDS SUMMARY | 2023-11-28 10:54 | XMS_ITS | Encounter Summary ---
Author Name Unknown Organization [place] Address [facility]0 [facility] [place] [address] Care Team Providers Care Strategy Manager Name Role Phone Irma Paredes MD Unavailable [phone] Lashanda Crocker PhD LP Unavailable [phone] No Ref-Primary, Physician Primary Care Provider Adrián Guzman PA-C Unavailable Ravin Freeman PA-C Unavailable Ravin Freeman PA-C Unavailable Encounter Details Date Type Department Care Team (Late st Contact Info) Description 12/29/2014 MyC Medical Advice [facility] Adult Rheumatology 2nd Floor, Clinic [address] [address] Irma Paredes MD [address] [place] [address] Social History Tobacco Use Types Packs/Day Years [...] on filedocumented in this encounter Care Teams Strategy Manager Relationship Specialty Start Date End Date No Ref-Primary, Physician PCP - General 07/22/17 Adrián Guzman PA-C [address] [place] [address] PCP - Assigned PCP 07/28/17 08/30/18 Ravin Freeman PA-C [address] [place], [place] [id number] PCP - Assigned PCP 08/31/18 10/14/18 Irma Paredes MD Resident Rheumatology 12/31/14 10/07/18 Lashanda Crocker, PhD LP 9 [place] [address] Psychology 12/31/14 Ravin Freeman PA-C [address] [place] [address] Assigned PCP 08/31/18 08/01/19 documented as of this encounter
--- OUTSIDE RECORDS SUMMARY | 2023-11-28 10:54 | XMS_ITS | Continuity of Care Document ---
Author Name Unknown Organization [facility] [address] [facility] [address] [place] [address] Phone Care Team Providers Care Litigation Paralegal Name Role Phone Renetta Castorena MD Unavailable Unavailable Allergies, Adverse Reactions, Alerts Substance Reaction Status Criticality COVID-19 (SARS-COV-2) VACCINE, AD26 Activ e No Information gabapentin Active No Information belimumab hives and muscle pain Active No Inf ormation meloxicam Active No Information levofloxacin Active No Information POTASSIUM CLAVULANATE Active No Inf ormation AMOXICILLIN TRIHYDRATE Active No In formation Opioids - Morphine Analogues Active No Information albuterol Active No Information Medications Medication Instructions Dosage Effective Dates (start - stop) Status Comments HYDROXYCHLOROQUINE 200MG TABLETS TAKE 1 TABLET BY MOUTH TWICE DAILY - Active AZATHIOPRINE 50MG TABLETS TAKE 2 TABLETS BY MOUTH EVERY MORNING AND 1 EVERY EVENING - Active sulindac 200 mg tablet take 1 tablet by oral route 2 times every day with food 200 MG - Active ondansetron HCl 4 mg tablet take 1 tablet by oral route every 6 hours as needed - Active sumatriptan 100 mg tablet take 1 tablet by oral route after onset of migraine; may repeat after 2 hours if headache returns,not to exceed 200mg in 24hrs 100 MG - Active zolpidem ER 6.25 mg tablet,extended release,multiphase take at bed time when needed - Active norethindrone (contraceptive) 0.35 mg tablet take 1 tablet by oral route every day 1.00 tablet - Active CREON (unknown strength) take 1 capsule by oral route 3 times every day with meals and 1 capsule with each snack swallowing whole. Do not crush, chew and/or divide. Not Available - Active AZATHIOPRINE 50MG TABLETS TAKE 2 TABLETS BY MOUTH EVERY MORNING AND 1 TABLET BY MOUTH EVERY EVENING - No Longer Active Plaquenil 200 mg tablet take 1 Tablet by oral route 2 times every day 200 MG - No Longer Active Procedures Procedure Date Office/Outpatient Visit, Est Routine Venipuncture Specimen Handling Rbc Sed Rate, Automated Assay Of Serum Albumin Assay Of Creatinine Transferase (Ast) (Sgot) Alanine Amino (Alt) (Sgpt) CReactive Protein Dna Antibody, Single Strand Dna Antibody, [place] Nuclear Antigen Antibodies Complete Cbc WAuto Diff Wbc Office/Outpatient Visit, Est Routine Venipuncture Rbc Sed Rate, Automated Assay Of Serum Albumin Assay Of Creatinine Transferase (Ast) (Sgot) Alanine Amino (Alt) (Sgpt) CReactive Protein Dna Antibody, Single Strand Dna Antibody, [place] Nuclear Antigen Antibodies Complete Cbc WAuto Diff Wbc Office/Outpatient Visit, Est Routine Venipuncture Specimen Handling Rbc Sed Rate, Nonautomated Assay Of Serum Albumin Assay Of Creatinine Transferase (Ast) (Sgot) Alanine Amino (Alt) (Sgpt) CReactive Protein Dna Antibody, Single Strand Dna Antibody, [place] Nuclear Antigen Antibodies Vitamin D 25 Hydroxy Complete Cbc WAuto Diff Wbc Office/Outpatient Visit, Est Routine Venipuncture Rbc Sed Rate, Nonautomated Assay Of Serum Albumin Assay Of Creatinine Transferase (Ast) (Sgot) Alanine Amino (Alt) (Sgpt) Assay Of Ck (Cpk) CReactive Protein Dna Antibody, Single Strand Dna Antibody, [place] Nuclear Antigen Antibodies Complete Cbc WAuto Diff Wbc Office/Outpatient Visit, Est Routine Venipuncture Rbc Sed Rate, Nonautomated Assay Of Serum Albumin Assay Of Creatinine Transferase (Ast) (Sgot) Alanine Amino (Alt) (Sgpt) CReactive Protein Dna Antibody, Single Strand Dna Antibody, [place] Nuclear Antigen Antibodies Vitamin D 25 Hydroxy Complete Cbc WAuto Diff Wbc Office/Outpatient Visit, Est Routine Venipuncture Specimen Handling Rbc Sed Rate, Nonautomated Assay Of Serum Albumin Assay Of Creatinine Transferase (Ast) (Sgot) Alanine Amino (Alt) (Sgpt) CReactive Protein Dna Antibody, Single Strand Dna Antibody, [place] Nuclear Antigen Antibodies Vitamin D 25 Hydroxy Complete Cbc WAuto Diff Wbc Office/Outpatient Visit, Est Routine Venipuncture Rbc Sed Rate, Nonautomated Assay Of Serum Albumin Assay Of Creatinine Transferase (Ast) (Sgot) Alanine Amino (Alt) (Sgpt) CReactive Protein Assay Of Ck (Cpk) Dna Antibody, Single Strand Dna Antibody, [place] Nuclear Antigen Antibodies Vitamin D 25 Hydroxy Complete Cbc WAuto Diff Wbc Office/Outpatient Visit, Est Routine Venipuncture Rbc Sed Rate, Nonautomated Assay Of Serum Albumin Assay Of Creatinine Transferase (Ast) (Sgot) Alanine Amino (Alt) (Sgpt) CReactive Protein Dna Antibody, Single Strand Dna Antibody, [place] Nuclear Antigen Antibodies Complete Cbc WAuto Diff Wbc Office/Outpatient Visit, Est Routine Venipuncture Rbc Sed Rate, Nonautomated Assay Of Serum Albumin Assay Of Creatinine Transferase (Ast) (Sgot) Alanine Amino (Alt) (Sgpt) CReactive Protein Dna Antibody, Single Strand Dna Antibody, [place] Nuclear Antigen Antibodies Complete Cbc WAuto Diff Wbc Office/Outpatient Visit, Est Routine Venipuncture Assay Of Serum Albumin Assay Of Creatinine Transferase (Ast) (Sgot) Alanine Amino (Alt) (Sgpt) CReactive Protein Dna Antibody, Single Strand Dna Antibody, [place] Nuclear Antigen Antibodies Complete Cbc WAuto Diff Wbc Office/Outpatient Visit, Est Routine Venipuncture Specimen Handling Rbc Sed Rate, Nonautomated Assay Of Serum Albumin Assay Of Creatinine Transferase (Ast) (Sgot) Alanine Amino (Alt) (Sgpt) CReactive Protein Dna Antibody, Single Strand Dna Antibody, [place] Nuclear Antigen Antibodies Complete Cbc WAuto Diff Wbc Office/Outpatient Visit, Est Routine Venipuncture Rbc Sed Rate, Nonautomated Assay Of Serum Albumin Assay Of Creatinine Transferase (Ast) (Sgot) Alanine Amino (Alt) (Sgpt) CReactive Protein Dna Antibody, Single Strand Dna Antibody, [place] Nuclear Antigen Antibodies Complete Cbc WAuto Diff Wbc Office/Outpatient Visit, Est Routine Venipuncture Rbc Sed Rate, Nonautomated Assay Of Serum Albumin Assay Of Creatinine Transferase (Ast) (Sgot) Alanine Amino (Alt) (Sgpt) CReactive Protein Dna Antibody, Single Strand Dna Antibody, [place] Nuclear Antigen Antibodies Complete Cbc WAuto Diff Wbc Office/Outpatient Visit, Est Routine Venipuncture Specimen Handling Complete Cbc WAuto Diff Wbc Rbc Sed Rate, Nonautomated Assay Of Serum Albumin Assay Of Creatinine Transferase (Ast) (Sgot) Alanine Amino (Alt) (Sgpt) CReactive Protein Dna Antibody, Single Strand Dna Antibody, [place] Nuclear Antigen Antibodies No Charge Nurse Visit Office/Outpatient Visit, Est Office/Outpatient Visit, Est Routine Venipuncture Complete Cbc WAuto Diff Wbc Rbc Sed Rate, Nonautomated Assay Of Serum Albumin Assay Of Creatinine Transferase (Ast) (Sgot) Alanine Amino (Alt) (Sgpt) CReactive Protein Dna Antibody, Single Strand Dna Antibody, [place] Nuclear Antigen Antibodies Office/Outpatient Visit, Est Routine Venipuncture Complete Cbc WAuto Diff Wbc Rbc Sed Rate, Nonautomated Assay Of Serum Albumin Assay Of Creatinine Transferase (Ast) (Sgot) Alanine Amino (Alt) (Sgpt) CReactive Protein Dna Antibody, Single Strand Dna Antibody, [place] Nuclear Antigen Antibodies Office/Outpatient Visit, Est Routine Venipuncture Complete Cbc WAuto Diff Wbc Rbc Sed Rate, Nonautomated CReactive Protein Assay Of Serum Albumin Assay Of Creatinine Transferase (Ast) (Sgot) Alanine Amino (Alt) (Sgpt) Dna Antibody, Single Strand Dna Antibody, [place] Nuclear Antigen Antibodies Vitamin D 25 Hydroxy Office/Outpatient Visit, Est Routine Venipuncture Complete Cbc WAuto Diff Wbc Rbc Sed Rate, Nonautomated CReactive Protein Assay Of Serum Albumin Assay Of Creatinine Transferase (Ast) (Sgot) Alanine Amino (Alt) (Sgpt) Office/Outpatient Visit, Est Routine Venipuncture Specimen Handling Complete Cbc WAuto Diff Wbc Rbc Sed Rate, Nonautomated Assay Of Serum Albumin Assay Of Creatinine Transferase (Ast) (Sgot) Alanine Amino (Alt) (Sgpt) CReactive Protein Dna Antibody, Single Strand Dna Antibody, [place] Nuclear Antigen Antibodies Vitamin D 25 Hydroxy Office/Outpatient Visit, New Routine Venipuncture Specimen Handling Complete Cbc WAuto Diff Wbc Rbc Sed Rate, Nonautomated Assay Of Serum Albumin Assay Of Creatinine Transferase (Ast) (Sgot) Alanine Amino (Alt) (Sgpt) CReactive Protein Antinuclear Antibodies Vitamin D 25 Hydroxy Rheumatoid Factor, IGM Rheumatoid Factor, IGG, IGA CCP Antibody Advance Directives Directive Yes / No Effective Date File Name No Information Encounters Encounter Description Practice Location Reason(s) For Visit Diagnoses Date Provider Providers Copied on Encounter [facility] , [address], [place], [address], [place] tel:[phone] [facility] No Information 4 Raffaele Jackson. [facility] [address], [place], [address], [place]. tel:[phone] Office/Outpa tient Visit, Est [facility] , [address], [place], [address], [place] tel:[phone] [facility] , Follow Up of Lupus (chief complaint) Oth organ or system involv in systemic lupus erythematosu sMyalgiaOthe r termite exterminator helper (current) drug therapy 4 Raffaele Jackson. [facility] [address], [place], [address], [place]. tel:[phone] Referring Provider: Renetta Cm, [facility] [address], [place], [address]. tel:[phone] [facility] , [address], [place], [address], [place] tel:[phone] [facility] No Information 3 Raffaele Randallen. [facility] [address], [place], [address], [place]. tel:[phone] Office/Outpa tient Visit, Est [facility] , [address], [place], [address], [place] tel:[phone] [facility] , Follow Up of Lupus (chief complaint) Other termite exterminator helper (current) drug therapyMyalg iaOth organ or system involv in systemic lupus erythematosu sPalpitation s 3 Castorenadimitry Randallen. [facility] [address], [place], [address], [place]. tel:[phone] Referring Provider: Renetta Cm, [facility] [address], [place], [address]. tel:[phone] Office/Outpa tient Visit, Est [facility] , [address], [place], [address], [place] tel:[phone] [facility] , Follow Up of Lupus (chief complaint) Other shelter (current) drug therapyMyalg iaOth organ or system involv in systemic lupus erythematosu sDepression 3 Raffaele Renetta. [facility] [address], [place], [address], [place]. tel:[phone] Referring Provider: Renetta Cm, [facility] [address], [place], [address]. tel:[phone] Office/Outpa tient Visit, Est [facility] , [address], [place], [address], [place] tel:[phone] [facility] , Follow Up of Lupus (chief complaint) Other shelter (current) drug therapyMyalg iaOth organ or system involv in systemic lupus erythematosu s 2 Castorena Renetta. [facility] [address], [place], [address], [place]. tel:[phone] Referring Provider: Renetta Cm, [facility] [address], [place], [address]. tel:[phone] Office/Outpa tient Visit, Est [facility] , [address], [place], [address], [place] tel:[phone] [facility] , Follow Up of Lupus (chief complaint) Other termite exterminator helper (current) drug therapyMyalg iaOth organ or system involv in systemic lupus erythematosu sNausea 2 Raffaele Jackson. [facility] [address], [place], [address], [place]. tel:[phone] Referring Provider: Renetta Cm, [facility] [address], [place], [address]. tel:[phone] Office/Outpa tient Visit, Est [facility] , [address], [place], [address], [place] tel:[phone] [facility] , Follow Up of Lupus (chief complaint) Other termite exterminator helper (current) drug therapyVitam in D deficiency, unspecifiedM yalgiaOth organ or system involv in systemic lupus erythematosu s 1 Raffaele Jackson. [facility] [address], [place], [address], [place]. tel:[phone] Referring Provider: Renetta Cm, [facility] [address], [place], [address]. [phone] Office/Outpa tient Visit, Est [facility] , [address], [place], [address], [place] tel:[phone] [facility] , Follow Up of Lupus (chief complaint) Oth organ or system involv in systemic lupus erythematosu sOther shelter (current) drug therapyVitam in D deficiency, unspecifiedM yalgia 0 Raffaele Jackson. [facility] [address], [place], [address], [place]. tel:[phone] Referring Provider: Renetta Cm, [facility] [address], [place], [address]. tel:[phone] Office/Outpa tient Visit, Est [facility] , [address], [place], [address], [place] tel:[phone] [facility] , Follow Up of Lupus (chief complaint) Oth organ or system involv in systemic lupus erythematosu sOther shelter (current) drug therapyAnter ior chest-wall painTrochant kamlesh bursitis, unspecified hip 0-202 0 Raffaele Jackson. [facility] [address], [place], [address], [place]. tel:[phone] Referring Provider: Renetta Cm, [facility] [address], [place], [address]. tel:[phone] Office/Outpa tient Visit, Est [facility] , [address], [place], [address], [place] tel:[phone] [facility] , Follow Up of Lupus (chief complaint) Pain in thoracic spineOth organ or system involv in systemic lupus erythematosu sOther termite exterminator helper (current) drug therapy 0 9 Raffaele Jackson. [facility] [address], [place], [address], [place]. tel:[phone] Referring Provider: Renetta Cm, [facility] [address], [place], [address]. tel:[phone] Office/Outpa tient Visit, Est [facility] , [address], [place], [address], [place] tel:[phone] [facility] , Follow Up of Lupus (chief complaint) Oth organ or system involv in systemic lupus erythematosu sOther shelter (current) drug therapyPain in unspecified hip 0-201 9 Raffaele Jackson. [facility] [address], [place], [address], [place]. tel:[phone] Referring Provider: Renetta Cm, [facility] [address], [place], [address]. tel:[phone] Office/Outpa tient Visit, Est [facility] , [address], [place], [address], [place] tel:[phone] [facility] , Follow Up of Lupus (chief complaint) Restless leg syndromeOth organ or system involv in systemic lupus erythematosu sFibromyalgi aOther termite exterminator helper (current) drug therapyDysur iaDepression Fatigue 8 Castorena Renetta. [facility] [address], [place], [address], [place]. tel:[phone] Referring Provider: Renetta Cm, [facility] [address], [place], [address]. tel:[phone] Office/Outpa tient Visit, Est [facility] , [address], [place], [address], [place] tel:[phone] [facility] , Follow Up of Lupus (chief complaint) Oth organ or system involv in systemic lupus erythematosu sFibromyalgi aOther termite exterminator helper (current) drug therapyRestl ess leg syndrome 8 Raffaele Renetta. [facility] [address], [place], [address], [place]. tel:[phone] Referring Provider: Renetta Cm, [facility] [address], [place], [address]. tel:[phone] Office/Outpa tient Visit, Est [facility] , [address], [place], [address], [place] tel:[phone] [facility] , Follow Up of Lupus (chief complaint) Oth organ or system involv in systemic lupus erythematosu sFibromyalgi aOther termite exterminator helper (current) drug therapyBunio nRaynaud's syndrome without gangrene 8 Raffaele Jackson. [facility] [address], [place], [address], [place]. tel:[phone] Referring Provider: Renetta Cm, [facility] [address], [place], [address]. tel:[phone] [facility] , [address], [place], [address], [place] tel:[phone] [facility] , No Information 8 Raffaele Jackson. [facility] [address], [place], [address], [place]. tel:[phone] Office/Outpa tient Visit, Est [facility] , [address], [place], [address], [place] tel:[phone] [facility] , Follow Up of Lupus (chief complaint) Oth organ or system involv in systemic lupus erythematosu sFibromyalgi aOther shelter (current) drug therapyPain in unspecified hip 8 Raffaele Jackson. [facility] [address], [place], [address], [place]. tel:[phone] Referring Provider: Renetta Cm, [facility] [address], [place], [address]. tel:[phone] [facility] , [address], [place], [address], [place] tel:[phone] [facility] , Oth organ or system involv in systemic lupus erythematosu s Castorena Renetta. [facility] [address], [place], [address], [place]. tel:[phone] Referring Provider: Renetta Cm, [facility] [address], [place], [address]. tel:[phone] Office/Outpa tient Visit, Est [facility] , [address], [place], [address], [place] tel:[phone] [facility] , Follow Up of Lupus (chief complaint) Oth organ or system involv in systemic lupus erythematosu sFibromyalgi aOther shelter (current) drug therapy Castorena Renetta. [facility] [address], [place], [address], [place]. tel:[phone] Referring Provider: Renetta Cm, [facility] [address], [place], [address]. tel:[phone] Office/Outpa tient Visit, Est [facility] , [address], [place], [address], [place] tel:[phone] [facility] , Follow Up of Lupus (chief complaint) Oth organ or system involv in systemic lupus erythematosu sFibromyalgi aOther shelter (current) drug therapy Raffaele Jackson. [facility] [address], [place], [address], [place]. tel:[phone] Referring Provider: Renetta Cm, [facility] [address], [place], [address]. tel:[phone] Office/Outpa tient Visit, Est [facility] , [address], [place], [address], [place] tel:[phone] [facility] , Follow Up of SLE (chief complaint)Fo llow Up of Fibromyalgia syndrome (chief complaint) Vitamin D deficiency, unspecifiedO th organ or system involv in systemic lupus erythematosu sFibromyalgi aOther shelter (current) drug therapyEdema 7 Raffaele Jackson. [facility] [address], [place], [address], [place]. tel:[phone] Referring Provider: Renetta Cm, [facility] [address], [place], [address]. tel:[phone] Office/Outpa tient Visit, Est [facility] , [address], [place], [address], [place] tel:[phone] [facility] , Follow Up of Lupus (chief complaint) Vitamin D deficiency, unspecifiedO th organ or system involv in systemic lupus erythematosu sFibromyalgi aOther shelter (current) drug therapy 7 Raffaele Jackson. [facility] [address], [place], [address], [place]. tel:[phone] Referring Provider: Renetta Cm [facility] [address], [place], [address]. tel:[phone] Office/Outpa tient Visit, Est [facility] , [address], [place], [address], [place] tel:[phone] [facility] , Follow Up of SLE (chief complaint) Vitamin D deficiency, unspecifiedO th organ or system involv in systemic lupus erythematosu sFibromyalgi aOther shelter (current) drug therapy 6 Raffaele Jackson. [facility] [address], [place], [address], [place]. tel:[phone] Referring Provider: Renetta Cm, [facility] [address], [place], [address]. tel:[phone] Office/Outpa tient Visit, Est [facility] , [address], [place], [address], [place] tel:[phone] [facility] , Follow Up of Lupus (chief complaint) Oth organ or system involv in systemic lupus erythematosu sOther shelter (current) drug therapyFibro myalgiaVitam in D deficiency, unspecified 6 Raffaele Jackson. [facility] [address], [place], [address], [place]. tel:[phone] Referring Provider: Renetta Cm, [facility] [address], [place], [address]. tel:[phone] Office/Outpa tient Visit, New [facility] , [address], [place], [address], [place] tel:[phone] [facility] , Lupus (chief complaint) Oth organ or system involv in systemic lupus erythematosu sOther termite exterminator helper (current) drug therapyFatig ueFibromyalg ia 6 Raffaele Jackson. [facility] [address], [place], [address], [place]. tel:[phone] Referring Provider: Renetta Cm, [facility] [address], [place], [address]. tel:[phone] Family History Family Member Type Diagnosis Age At Onset Maternal grandmother Problem (finding) osteoporosis Payers Payer name Insurance type Covered libertarian ID Zen erazo(s) [employer] [id number] Social History Type Description Quantity Date Captured Comments Sex Female Smoking Status No Information Chief Complaint And Reason For Visit No Information Reason For Referral Reason For Referral No Information Plan Of Treatment Date Type Action Status Referral Ordered: [facility]related to Fibromyalgia) ordered Referral Referred To: [facility] Ordered: Referrals: [facility]. Evaluate and treat ordered Appointment Gill Khan BOOKED History Of Present Illness Encounter Date Complaint History Of Prese nt Illness Follow Up of Lupus Follow Up of Lupus Follow Up of Lupus Follow Up of Lupus Follow Up of Lupus Follow Up of Lupus Follow Up of Lupus Follow Up of Lupus Follow Up of Lupus Follow Up of Lupus Follow Up of Lupus Follow Up of Lupus Follow Up of Lupus Follow Up of Lupus Follow Up of Lupus Follow Up of Lupus Follow Up of SLE Follow Up of Fibromyalgia syndro me Follow Up of Lupus Follow Up of SLE Follow Up of Lupus Lupus Functional Status Date Functional Assessmen t No Information Instructions Date Instruction Additional Infor mation No Information Assessments Type Assessment Date No Information Patient Care Teams Name Effective Dates (start - stop) Status Members No Information
== END 2023-11-28 10:51 | disposition home or self-care (01) ==
LOC: NFLDREF 10:51
PROVIDERS: PCP Physician Assistant; Visit Provider Physician Assistant
DX: R30.0 Dysuria (principal)
CPT/HCPCS: 87086

== ENCOUNTER 2023-12-13 23:33 | Emergency (ER) | payer BC, SELFPAY ==
[2023-12-13 23:44] VITALS: BP 134/75; PULSE 91; RESP 20; O2SAT 98; BMI 25.9
--- NOTE | 2023-12-14 01:09 | US_ITS ---
Patient: SEDRICK GUZMAN Facility:?[facility] Patient ID:?[id number] Site Patient ID:?[id number] Site :?[id number] Study:?US-OB Pelvis TV pelvic-12/14/2023 2:01:09 AM Ordering Physician:? Final Report: INDICATION: Pelvic pain. TECHNIQUE: Ultrasound pelvis transvaginal. Real-time sonographic images with spectral and color Doppler imaging of the ovaries were obtained. COMPARISON: None. FINDINGS: Uterus: Status post hysterectomy. Right ovary measures 3.2 x 2.2 x 2.2 cm and left ovary measures 2.6 x 1.4 x 1.9 cm. Collapsing corpus luteum cyst in the right ovary measuring 1.6 x 1.6 x 1.2 cm. Normal arterial and venous blood flow is demonstrated in both ovaries. Cul-de-sac: Large amount of free fluid with internal echoes. IMPRESSION: 1. Large amount of mildly complex fluid in the cul-de-sac, nonspecific. 2. Collapsing right ovarian corpus luteum cyst. 3. Status post hysterectomy. Dictated by Obi Campbell MD @ 12/14/2023 2:17:41 AM Signed by:?Obi Campbell MD @12/14/2023 2:17:41 AM (Electronic Signature)
--- NOTE | 2023-12-14 01:17 | ED.GENADULT ---
HPI - General Adult General Chief complaint: Abdominal Pain Stated complaint: lower abdominal pain Time Seen by Provider: 12/14/23 00:55 Source: patient Mode of arrival: ambulatory Limitations: no limitations History of Present Illness HPI narrative: Year-old female with 2 week history of pelvic pain presents to the emergency department for evaluation of worsening pain. Reports that she was evaluated in the clinic and had swabs to look for infections as well as a urinalysis that were negative. Was told to follow-up if her pain persisted or worsened. She had a hysterectomy 10 weeks ago for endometriosis but did retain her ovaries. No history of cancers. No recent trauma or injury, no fevers, no bloody stools. Pain is achy and constant in the lower pelvic area radiates to the perirectal area and both hips bilaterally. Pain worsened at approximately 9:00 p.m. after intercourse. She tried taking 1 extra Strength Tylenol tablet with no significant improvement in her symptoms. She has multiple antibiotic and medication allergies. She does take daily NSAIDs for her lupus. She denies any trauma or injury, no dysuria. No history of kidney stones. No unusual vaginal discharge. With past medical history notable for lupus and endometriosis. Pertinent recent surgery is a hysterectomy she has also had an exploratory laparotomy with some slight reduction of endometriosis but as stated does have both ovaries. No other abdominal surgeries. Medications reviewed and updated, list is accurate. ROS notable for the pelvic pain as described above only, otherwise denies times 12 systems. Related Data Home Medications Medication Instructions Recorded Confirmed azathioprine 50 mg tablet (Imuran) 50 - 100 mg PO BID 10/10/22 11/28/23 hydroxychloroquine 200 mg tablet 200 mg PO BID 10/10/22 11/28/23 sulindac 200 mg tablet 200 mg PO DAILY 10/10/22 11/28/23 sumatriptan succinate 100 mg tablet 100 mg PO DAILY PRN 10/10/22 11/28/23 zolpidem 6.25 mg tablet,extended 6.25 mg PO QHS 10/10/22 11/28/23 release,multiphase magnesium 200 mg tablet 200 mg PO DAILY 01/11/23 11/28/23 Previous Rx's Medication Instructions Recorded acetaminophen 325 mg tablet 650 mg (2 x 325 mg) PO Q4H PRN 10/04/23 minor pain 30 days #90 tabs gabapentin 100 mg capsule 100 mg PO TID 30 days #90 caps 10/04/23 hydromorphone 2 mg tablet 2 mg PO Q6H PRN pain #10 tabs 12/14/23 (Dilaudid) Allergies Allergy/AdvReac Type Severity Reaction Status Date / Time albuterol Allergy Severe Anaphylaxis Verified 11/28/23 09:53 amoxicillin Allergy Severe Hives Verified 11/28/23 09:53 hydrocodone [From Vicodin] Allergy Severe Anaphylaxis Verified 11/28/23 09:53 niacin Allergy Severe flushing Verified 11/28/23 09:53 Penicillins Allergy Severe Hives Verified 11/28/23 09:53 zinc Allergy Severe Vomiting Verified 11/28/23 09:53 levofloxacin Allergy Intermediate Hives Verified 11/28/23 09:53 meloxicam Allergy Intermediate Hives Verified 11/28/23 09:53 sumatriptan Allergy Mild Flushing Verified 11/28/23 09:53 oxycodone [From Percocet] AdvReac Severe Anaphylaxis Verified 11/28/23 09:53 COVID-19 (mRNA) Vaccine Allergy Severe Anaphylaxis Uncoded 11/28/23 09:53 Iodinated Diagnostic Agents Allergy Severe Difficulty Uncoded 11/28/23 09:53 Breathing Clavulanate Allergy Mild Unknown Uncoded 11/28/23 09:53 [facility] Medical History Pancreatic insufficiency ?K86.89 - Other specified diseases of pancreas (ICD-10) Right clavicle fracture ?S42.001A - Fracture of unspecified part of right clavicle, initial encounter for closed fracture (ICD-10) Fibromyalgia ?M79.7 - Fibromyalgia (ICD-10) Lupus ?M32.9 - Systemic lupus erythematosus, unspecified (ICD-10) GERD (gastroesophageal reflux disease) ?K21.9 - Gastro-esophageal reflux disease without esophagitis (ICD-10) Migraine, unspecified, intractable, without status migrainosus ?G43.919 - Migraine, unspecified, intractable, without status migrainosus (ICD-10) IBS (irritable bowel syndrome) ?K58.9 - Irritable bowel syndrome without diarrhea (ICD-10) Lactose intolerance ?E73.9 - Lactose intolerance, unspecified (ICD-10) Surgical History S/P hysterectomy ?Z90.710 - Acquired absence of both cervix and uterus (ICD-10) H/O microdiscectomy ?Z98.890 - Other specified postprocedural states (ICD-10) Family History Maternal Grandfather Heart disease Cancer Diabetes Maternal Grandmother Breast cancer Diabetes Mother Heart disease Diabetes Father FHx: mental illness Substance abuse or dependence 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 . Nonsmoker. Rare alcohol use. What is your current living situation?: I presently have a place to live In the past 12 months, utilities in danger of being shut off: no In past 12 months, lack of transportation kept you from medical appts, meetings, work, or getting things needed for daily living: no In the past 12 mos, have been you worried that your food would run out before you had money to buy more?: never true In the past 12 mos, the food you bought just didn't last and you didn't have money to buy more?: never true Smoking Status: Never smoker Do you use any of these nicotine containing products: None Second hand tobacco smoke exposure: No How often do you have a drink containing alcohol: never AUDIT-C Alcohol total score: 0 Non-prescribed substance use: denies use Caffeine: Yes (1c/day) How often does anyone, including family, friends and others, physically hurt you: never How often does anyone, including family, friends and others, insult or talk down to you: never How often does anyone, including family, friends and others, threaten you with harm: never How often does anyone, including family, friends and others, scream or curse at you: never Little interest or pleasure in doing things: several days Feeling down, depressed, or hopeless: several days service: No Exam Const: Vital Signs, click to edit/add: Vital Signs - 24 hr 12/13/23 23:44 Pulse Rate [Right Pulse Oximeter] 91 Respiratory Rate 20 Blood Pressure [Ri ght Upper Arm] 134/75 Pulse Oximetry 98 Oxygen Delivery Me thod Room Air Documenting provider has reviewed patient's vital signs: yes Common normals: no apparent distress and alert HENMT: Common normals: normocephalic, moist oral mucous membranes and oropharynx normal Head and scalp: normocephalic Mouth: oral and palatal mucosa normal Eye: Common normals: conjunctivae normal General eye: normal appearance of both eyes Conjunctiva: conjunctiva(e) normal Neck & C-Spine: Common normals: no lymphadenopathy General: normal visual inspection Resp: Common normals: normal respiratory effort, no use of accessory muscles and clear to auscultation bilaterally Effort & inspection: able to speak in complete sentences Auscultation: clear to auscultation bilaterally Cardio: Common normals: regular rate, regular rhythm, S1 normal heart sound and S2 normal heart sound Rate: regular rate Rhythm: regular rhythm Heart sounds: S1 normal and S2 normal GI: Other: Surgical scars hearing well. Winces in pain wherever I touch in her abdomen not just the listed areas. Pain certainly is increased in the suprapubic area I would call the left and right lower abdomen equal. There is no rebound tenderness or guarding but she does seem quite bothered by palpation. I do not palpate any obvious mass. Normoactive bowel sounds throughout. : Common normals: no CVA tenderness Bladder/kidney exam: no CVA tenderness Back & Pelvis: Common normals: no CVA tenderness Extremity: Common normals: normal to inspection and normal capillary refill Neuro: Sensorium/orientation: alert Speech: speech normal Motor exam: no movement abnormalities noted Psych: Appearance: grossly normal Activity/motor behavior: appropriate eye contact Insight: insight good Judgement: judgment good Skin: Common normals: no rashes or lesions noted General skin exam: no rashes or lesions noted Course Course ED Course: 43-year-old female with history of endometriosis, recent negative outpatient workup for pelvic pain. The differential diagnosis including ovarian torsion, ovarian cyst, complication from surgery, appendicitis, diverticulitis, bowel obstruction, pelvic infection, urinary infection, kidney stone, among others. Most suspicious of endometriosis but cannot exclude ovarian pathology. Will obtain pelvic ultrasound, I do think that we should try to give Toradol for pain. She does take NSAIDs daily though she does list others as allergies. She also lists all the narcotics as allergies making a choice of medication quite difficult. Will give Zofran for her reported nausea. Await findings from ultrasound. Basic labs to look for other source of abdominal pain. Reevaluation(s) Time of Reevaluation #1: 02:22 Reevaluation #1: Patient feeling mostly better. Toradol was helpful, did not have a reaction. Discussed normal labs, free fluid with signs of recently ruptured ovarian cyst without torsion or other pathology. I do suspect this is the source for pain. Feeling better after the Toradol. Patient has not tolerated other oral narcotics but did tolerate oral Dilaudid after her hysterectomy. Will give a very limited supply of these but discussed Tylenol for primary pain control. Symptoms should be markedly better in about 48 hours. If not improving, she should follow up with her primary care provider on Saturday for further direction. Alarm symptoms reviewed that would warrant ED presentation verbalized understanding and agreement. Vital Signs Vital signs: Initial Vital Signs Pulse Rate 91 12/13/23 23:44 Pulse Rhythm Regular, Irregularly Irregular 12/13/23 23:44 Respiratory Rate 20 12/13/23 23:44 Blood Pressure 134/75 12/13/23 23:44 Blood Pressure Mean 94 12/13/23 23:44 Blood Pressure Position Sitting 12/13/23 23:44 Pulse Oximetry 98 12/13/23 23:44 Oxygen Delivery Method Room Air 12/13/23 23:44 Vital Signs Pulse Rate 91 12/13/23 23:44 Respiratory Rate 20 12/13/23 23:44 Blood Pressure 134/75 12/13/23 23:44 Pulse Oximetry 98 12/13/23 23:44 Oxygen Delivery Method Room Air 12/13/23 23:44 Pulse Rate 91 12/13/23 23:44 Respiratory Rate 20 12/13/23 23:44 Blood Pressure 134/75 12/13/23 23:44 Pulse Oximetry 98 12/13/23 23:44 Oxygen Delivery Method Room Air 12/13/23 23:44 Medications Administered Medications: Generic Name Dose Route Start Last Admin Trade Name Freq PRN Reason Stop Dose Admin Ketorolac Tromethamine 15 mg 12/14/23 01:09 12/14/23 01:25 Ketorolac 15 Mg/Ml Inj IVP 12/14/23 01:10 15 mg ONCE ONE Administration Ondansetron HCl 4 mg 12/14/23 01:10 12/14/23 01:25 Ondansetron 2 Mg/Ml Inj IVP 12/14/23 01:11 Not Given ONCE ONE Medical Decision Making Lab Data Lab results reviewed: Yes I reviewed the patient's lab results Lab results narrative: Reassuring. Labs: Lab Results 12/14/23 Range/Units 01:18 WBC 6.39 (4.50-11.00) K/uL RBC 3.72 L (4.00-5.20) m/uL Hgb 12.6 (12.0-16.0) gm/dL Hct 36.1 (33.0-51.0) % MCV 97 (80-100) fL MCH 34 (26-34) pg MCHC 35 (32-36) gm/dL RDW Coeff of Brittany 13.7 (11.5-15.5) % Plt Count 228 (140-440) K/uL Neut % (Auto) 78.2 H (42.0-72.0) % Lymph % (Auto) 12.4 L (20-44) % Edmunds % (Auto) 7.4 (0.0-11.0) % Eos % (Auto) 0.9 (0.0-7.0) % Baso % (Auto) 0.3 (0.0-3.0) % Neut # (Auto) 5.00 (1.7-7.0) K/uL Lymph # (Auto) 0.80 L (0.90-2.90) K/uL Edmunds # (Auto) 0.50 (0.00-0.90) K/UL Eos # (Auto) 0.06 (0.00-0.50) K/uL Baso # (Auto) 0.02 (0.00-0.30) K/uL Abs Immat Gran (auto) 0.05 (0.00-0.30) K/uL Imm/Tot Granulo (auto) 0.8 % Sodium 137 (135-149) mmol/L Potassium 4.1 (3.6-5.1) mmol/L Chloride 106 (96-114) mmol/L Carbon Dioxide 25 (20-32) mmol/L Anion Gap 6 L (7-15) mEq/L BUN 14 (5-24) mg/dL Creatinine 0.6 (0.5-1.5) mg/dL Estimated Creat Clear 102.07 Estimated GFR 116 ml/min Glucose 90 (60-115) mg/dL Lactate 1.1 (0.5-1.9) mmol/L Calcium 9.3 (8.4-10.6) mg/dL Total Bilirubin 1.3 (0.1-1.5) mg/dL AST 52 H (12-35) U/L ALT 54 H (4-35) U/L Alkaline Phosphatase 66 (40-150) U/L C-Reactive Protein < 0.5 L (0.5-1.0) mg/dL Total Protein 7.4 (6.0-8.3) g/dL Albumin 4.4 (3.3-5.0) g/dL Imaging Data Pelvic ultrasound: Attestation: I have reviewed the pertinent imaging results. My impression: Free fluid with signs of complex lesion in right ovary that is likely you ruptured ovarian cyst Radiologist's impression: IMPRESSION: 1. Large amount of mildly complex fluid in the cul-de-sac, nonspecific. 2. Collapsing right ovarian corpus luteum cyst. 3. Status post hysterectomy. Discharge Plan Discharge Clinical Impression: Rupture of cyst of right ovary Patient Disposition: Home w/ Parent or Adult Condition: Improved Instructions: Ovarian Cyst (ED) Additional Instructions: As we discussed, your pain seems to be from a ruptured right ovarian cyst. There are no signs of torsion, infection or other complication. This is good news. I am glad that your pain is doing better. Because of her multiple allergies, I will send a prescription for some oral Dilaudid to your local pharmacy. Please try to use this as sparingly as possible in consider taking a stool softener or laxative while on the medication. As discussed, Tylenol 1000 mg every 6 hours as needed for pain. 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 Any high fevers, severe unrelenting pain, severe weakness or other worrisome symptoms, please come back to emergency room Activity Level: No Restrictions Discharge Diet: Regular Prescriptions: New hydromorphone [Dilaudid] 2 mg tablet 2 mg PO Q6H PRN (Reason: pain) Qty: 10 0RF Rx Instructions: For ruptured ovarian cyst No Action magnesium 200 mg tablet 200 mg PO DAILY hydroxychloroquine 200 mg tablet 200 mg PO BID sulindac 200 mg tablet 200 mg PO DAILY zolpidem 6.25 mg tablet,ext release multiphase 6.25 mg PO QHS sumatriptan succinate 100 mg tablet 100 mg PO DAILY PRN azathioprine [Imuran] 50 mg tablet 50 - 100 mg PO BID Rx Instructions: 100mg AM, 50mg PM acetaminophen 325 mg Tablet 650 mg PO Q4H PRN (Reason: minor pain) 30 Days Qty: 90 0RF gabapentin 100 mg Capsule 100 mg PO TID 30 Days Qty: 90 0RF Follow Up/Referrals: Provider,Not a Local [Primary Care Provider] - Stand Alone [facility]: [facility] Inst[facility]
[2023-12-14] MEDS: KETOROLAC 15 MG/ML inj IVP (01:25)
[2023-12-14 01:44] LABS: Lactate* 1.1 mmol/L (0.5-1.9)
[2023-12-14 01:46] LABS: Basophils Absolute Auto 0.02 K/uL (0.00-0.30); Basophils Percent Auto 0.3 % (0.0-3.0); Eosinophils Absolute Auto 0.06 K/uL (0.00-0.50); Eosinophils Percent Auto 0.9 % (0.0-7.0); Hematocrit 36.1 % (33.0-51.0); Hemoglobin* 12.6 gm/dL (12.0-16.0); Immature Granulocytes Abs Auto 0.05 K/uL (0.00-0.30); Immature Granulocytes Pct Auto 0.8 %; Lymphocytes Percent Auto 12.4 % (20-44); Mean Corpuscular HGB Conc 35 gm/dL (32-36); Mean Corpuscular Hemoglobin 34 pg (26-34); Mean Corpuscular Volume 97 fL (80-100); Monocytes Percent Auto 7.4 % (0.0-11.0); Neutrophils Percent Auto 78.2 % (42.0-72.0); Platelet Count* 228 K/uL (140-440); RDW Coefficient of Variation % 13.7 % (11.5-15.5); Red Blood Count 3.72 m/uL (4.00-5.20); White Blood Count* 6.39 K/uL (4.50-11.00)
[2023-12-14 01:53] LABS: Slide Review Reflex No
--- OUTSIDE RECORDS SUMMARY | 2023-12-14 01:56 | XMS_ITS | Encounter Summary ---
Author Name Unknown Organization [place] Address [facility] [place] [address] Care Team Providers Care Decision Unit Rn Name Role Phone Irma Paredes MD Unavailable Lashanda Crocker PhD LP Unavailable [phone] No Ref-Primary, Physician Primary Care Provider Adrián Guzman PA-C Unavailable Ravin Freeman PA-C Unavailable [phone] Ravin Freeman PA-C Unavailable Encounter Details Date Type Department Care Team (Late st Contact Info) Description 10/10/2015 MyC Medical Advice [facility] Adult Rheumatology 2nd Floor, Clinic [address] [phone] Irma Paredes MD [address] [place] [address] Social History Tobacco Use Types Packs/Day Years [...] on filedocumented in this encounter Care Teams Decision Unit Rn Relationship Specialty Start Date End Date No Ref-Primary, Physician PCP - General 07/22/17 Adrián Guzman PA-C [address] [place] [address] PCP - Assigned PCP 07/28/17 08/30/18 Ravin Freeman PA-C [address] [place], [place] [id number] PCP - Assigned PCP 08/31/18 10/14/18 Irma Paredes MD Resident Rheumatology 12/31/14 10/07/18 Lashanda Crocker, PhD LP [address] [place] [address] Psychology 12/31/14 Ravin Freeman PA-C [address] [place] [address] Assigned PCP 08/31/18 08/01/19 documented as of this encounter
--- OUTSIDE RECORDS SUMMARY | 2023-12-14 01:56 | XMS_ITS | Encounter Summary ---
Author Name Unknown Organization [place] Address [address] [place] [address]. [place] [address] Support Name Relationship Address Phone Cesar Khan Emergency Contact [address] [employer] [place] [address] No Secondary Emergency Contact Unknown none Care Team Providers Care Vba Developer Name Role Phone Irma Paredes MD Unavailable [phone] Lashanda Crocker PhD LP Unavailable No Ref-Primary, Physician Primary Care Provider Adrián Guzman PA-C Unavailable Ravin Freeman PA-C Unavailable Ravin Freeman PA-C Unavailable Reason for Visit * Reason Onset Date Comments Pruritis 10/05/2015 Itching Encounter Details Date Type Department Care Team (Late st Contact Info) Description 10/05/2015 MyC Medical Advice [address], [address] [place] [address] Adrián Guzman PA-C [address] [place] [address] Pruritis (Itching) Social History Tobacco [...] on filedocumented in this encounter Care Teams Vba Developer Relationship Specialty Start Date End Date No Ref-Primary, Physician PCP - General 07/22/17 Adrián Guzman PA-C [address] [place] [address] PCP - Assigned PCP 07/28/17 08/30/18 Ravin Freeman PA-C [address] [place], [place] [id number] PCP - Assigned PCP 08/31/18 10/14/18 Irma Paredes MD Resident Rheumatology 12/31/14 10/07/18 Lashanda Crocker, PhD LP [address] [place] [address] Psychology 12/31/14 Ravin Freeman PA-C [address] [place] [address] Assigned PCP 08/31/18 08/01/19 documented as of this encounter
--- OUTSIDE RECORDS SUMMARY | 2023-12-14 01:56 | XMS_ITS | Encounter Summary ---
Author Name Unknown Organization [place] Address [address] [place] [address]. [place] [address] Care Team Providers Care Search Engine Marketing Strategist Name Role Phone Irma Paredes MD Unavailable [phone] Lashanda Crocker PhD LP Unavailable No Ref-Primary, Physician Primary Care Provider Adrián Guzman PA-C Unavailable Ravin Freeman PA-C Unavailable Ravin Freeman PA-C Unavailable Reason for Visit * Reason Onset Date Comments Results 05/08/2016 labs Encounter Details Date Type Department Care Team (Late st Contact Info) Description 05/08/2016 [facility] Medical Advice [facility] [id number] [place] [phone] Bernie Oliveira PA-C [address] [place] [address] Results (labs) Social History Tobacco [...] documented as of this encounter Care Teams Search Engine Marketing Strategist Relationship Specialty Start Date End Date No Ref-Primary, Physician PCP - General 07/22/17 Adrián Guzman PA-C [address] [place] [address] PCP - Assigned PCP 07/28/17 08/30/18 Ravin Freeman PA-C [address] [place] [address] PCP - Assigned PCP 08/31/18 10/14/18 Irma Paredes MD Resident Rheumatology 12/31/14 10/07/18 Lashanda Crocker, PhD LP [address] [place] [address] Psychology 12/31/14 Ravin Freeman PA-C [address] [place] [address] Assigned PCP 08/31/18 08/01/19 documented as of this encounter
--- OUTSIDE RECORDS SUMMARY | 2023-12-14 01:56 | XMS_ITS | Encounter Summary ---
Author Name Unknown Organization [place] Address [address] [place] [address] Care Team Providers Care Police Booking Officer Name Role Phone Irma Paredes MD Unavailable [phone] Lashanda Crocker PhD LP Unavailable No Ref-Primary, Physician Primary Care Provider Adrián Guzman PA-C Unavailable Ravin Freeman PA-C Unavailable Ravin Freeman PA-C Unavailable Reason for Visit * Reason Onset Date Comments MyChart Communication 07/22/2017 plaquenil dose Encounter Details Date Type Department Care Team (Latest Contact Info) Description 07/22/2017 MyC Medical Advice [facility] [address] [place] [phone] Fuad Crowe MD [facility] [address] [place] [address] MyChart Communication (plaquenil dose) Social [...] documented as of this encounter Care Teams Police Booking Officer Relationship Specialty Start Date End Date No Ref-Primary, Physician PCP - General 07/22/17 Adrián Guzman PA-C [address] [place] [address] PCP - Assigned PCP 07/28/17 08/30/18 Ravin Freeman PA-C [address] [place] [address] PCP - Assigned PCP 08/31/18 10/14/18 Irma Paredes MD Resident Rheumatology 12/31/14 10/07/18 Lashanda Crocker, PhD LP [address] [place] [address] Psychology 12/31/14 Ravin Freeman PA-C [address] [place] [address] Assigned PCP 08/31/18 08/01/19 documented as of this encounter
--- OUTSIDE RECORDS SUMMARY | 2023-12-14 01:56 | XMS_ITS | Encounter Summary ---
Author Name Unknown Organization [place] Address [facility] [place] [address] Care Team Providers Care Winch Truck Operator Name Role Phone Irma Paredes MD Unavailable Lashanda Crocker PhD LP Unavailable [phone] No Ref-Primary, Physician Primary Care Provider Adrián Guzman PA-C Unavailable [phone] Ravin Freeman PA-C Unavailable Ravin Freeman PA-C Unavailable [phone] Encounter Details Date Type Department Care Team (Late st Contact Info) Description 09/05/2015 MyC Medical Advice [facility] Adult Rheumatology 2nd Floor, Clinic [address] [phone] Irma Paredes MD [address] [place] [address] Social History Tobacco Use Types Packs/Day Years [...] on filedocumented in this encounter Care Teams Winch Truck Operator Relationship Specialty Start Date End Date No Ref-Primary, Physician PCP - General 07/22/17 Adrián Guzman PA-C [address] [place] [address] PCP - Assigned PCP 07/28/17 08/30/18 Ravin Freeman PA-C [address] [place], [place] [id number] PCP - Assigned PCP 08/31/18 10/14/18 Irma Paredes MD Resident Rheumatology 12/31/14 10/07/18 Lashanda Crocker, PhD LP [address] [place] [address] Psychology 12/31/14 Ravin Freeman PA-C [address] [place] [address] Assigned PCP 08/31/18 08/01/19 documented as of this encounter
--- OUTSIDE RECORDS SUMMARY | 2023-12-14 01:56 | XMS_ITS | Encounter Summary ---
Author Name Unknown Organization [place] Address [address] [place] [address]. [place] [address] Care Team Providers Care Clerk General Name Role Phone Irma Paredes MD Unavailable [phone] Lashanda Crocker PhD LP Unavailable [phone] No Ref-Primary, Physician Primary Care Provider Adrián Guzman PA-C Unavailable Ravin Freeman PA-C Unavailable Ravin Freeman PA-C Unavailable Reason for Visit * Reason Onset Date Comments Blood Glucose (home Monitoring) 10/25/2015 Encounter Details Date Type Department Care Team (Late st Contact Info) Description 10/25/2015 [facility] [place] [address], [address] [place] [address] Adrián Guzman PA-C [address] [place] [address] Blood Glucose (home Monitoring) Social [...] on filedocumented in this encounter Care Teams Clerk General Relationship Specialty Start Date End Date No Ref-Primary, Physician PCP - General 07/22/17 Adrián Guzman PA-C [address] [place] [address] PCP - Assigned PCP 07/28/17 08/30/18 Ravin Freeman PA-C [address] [place], [place] [id number] PCP - Assigned PCP 08/31/18 10/14/18 Irma Paredes MD Resident Rheumatology 12/31/14 10/07/18 Lashanda Crocker, PhD LP 9 [place] [address] Psychology 12/31/14 Ravin Freeman PA-C [address] [place] [address] Assigned PCP 08/31/18 08/01/19 documented as of this encounter
--- OUTSIDE RECORDS SUMMARY | 2023-12-14 01:56 | XMS_ITS | Encounter Summary ---
Author Name Unknown Organization [place] Address [facility] [place] [address] Care Team Providers Care Sheep Shearer Name Role Phone Irma Paredes MD Unavailable Lashanda Crocker PhD LP Unavailable [phone] No Ref-Primary, Physician Primary Care Provider Adrián Guzman PA-C Unavailable Ravin Freeman PA-C Unavailable Ravin Freeman PA-C Unavailable Encounter Details Date Type Department Care Team (Late st Contact Info) Description 05/24/2015 My[facility] Medical Advice [facility] Adult Rheumatology 2nd Floor, Clinic [address] [phone] Irma Paredes MD [address] [place] [address] Social History Tobacco Use Types Packs/Day Years [...] on filedocumented in this encounter Care Teams Sheep Shearer Relationship Specialty Start Date End Date No Ref-Primary, Physician PCP - General 07/22/17 Adrián Guzman PA-C [address] [place] [address] PCP - Assigned PCP 07/28/17 08/30/18 Ravin Freeman PA-C [address] [place], [place] [id number] PCP - Assigned PCP 08/31/18 10/14/18 Irma Paredes MD Resident Rheumatology 12/31/14 10/07/18 Lashanda Crocker, PhD LP 9 [place] [address] Psychology 12/31/14 Ravin Freeman PA-C [address] [place] [address] Assigned PCP 08/31/18 08/01/19 documented as of this encounter
--- OUTSIDE RECORDS SUMMARY | 2023-12-14 01:56 | XMS_ITS | Encounter Summary ---
Author Name Unknown Organization [place] Address [address] [place] [address]. [place] [address] Care Team Providers Care Rim Turning Machine Operator Name Role Phone Irma Paredes MD Unavailable [phone] Lashanda Crocker PhD LP Unavailable [phone] No Ref-Primary, Physician Primary Care Provider Adrián Guzman PA-C Unavailable Ravin Freeman PA-C Unavailable [phone] Ravin Freeman PA-C Unavailable [phone] Reason for Visit * Reason Onset Date Comments Medication Request 10/20/2015 Test strips Encounter Details Date Type Department Care Team (Late st Contact Info) Description 10/20/2015 [facility] Medical Advice [address], [address] [place] [address] Adrián Guzman PA-C [address] [place] [address] Medication Request (Test strips) Social [...] convulsions documented in this encounter Care Teams Rim Turning Machine Operator Relationship Specialty Start Date End Date No Ref-Primary, Physician PCP - General 07/22/17 Adrián Guzman PA-C [address] [place] [address] PCP - Assigned PCP 07/28/17 08/30/18 Ravin Freeman PA-C [address] [place], [place] [phone] PCP - Assigned PCP 08/31/18 10/14/18 Irma Paredes MD Resident Rheumatology 12/31/14 10/07/18 Lashanda Crocker, PhD LP 9 [place] [address] Psychology 12/31/14 Ravin Freeman PA-C [address] [place] [address] Assigned PCP 08/31/18 08/01/19 documented as of this encounter
--- OUTSIDE RECORDS SUMMARY | 2023-12-14 01:56 | XMS_ITS | Encounter Summary ---
Author Name Unknown Organization [place] Address [facility]0 [facility] [place] [address] Care Team Providers Care Bowling Pin Setters Installer Name Role Phone Irma Paredes MD Unavailable [phone] Lashanda Crocker PhD LP Unavailable [phone] No Ref-Primary, Physician Primary Care Provider Adrián Guzman PA-C Unavailable Ravin Freeman PA-C Unavailable Ravin Freeman PA-C Unavailable Encounter Details Date Type Department Care Team (Late st Contact Info) Description 11/22/2015 MyC Medical Advice [facility] Adult Rheumatology 2nd Floor, Clinic [address] [phone] Irma Paredes MD [address] [place] [address] Social History Tobacco Use Types Packs/Day Years [...] documented as of this encounter Care Teams Bowling Pin Setters Installer Relationship Specialty Start Date End Date No Ref-Primary, Physician PCP - General 07/22/17 Adrián Guzman PA-C [address] [place] [address] PCP - Assigned PCP 07/28/17 08/30/18 Ravin Freeman PA-C [address] [place], [place] [phone] PCP - Assigned PCP 08/31/18 10/14/18 Irma Paredes MD Resident Rheumatology 12/31/14 10/07/18 Lashanda Crocker, PhD LP 9 [place] [address] Psychology 12/31/14 Ravin Freeman PA-C [address] [place] [address] Assigned PCP 08/31/18 08/01/19 documented as of this encounter
--- OUTSIDE RECORDS SUMMARY | 2023-12-14 01:56 | XMS_ITS | Encounter Summary ---
Author Name Unknown Organization [place] Address [facility] [place] [address] Care Team Providers Care Fishing Rod Assembler Name Role Phone Irma Paredes MD Unavailable [phone] Lashanda Crocker PhD LP Unavailable [phone] No Ref-Primary, Physician Primary Care Provider Adrián Guzman PA-C Unavailable Ravin Freeman PA-C Unavailable Ravin Freeman PA-C Unavailable Reason for Referral * Consultation - Closed Specialty Diagnoses / Procedures Referred By Francisca murrieta Referred To Contact Diagnoses Low serum C-peptide Bernie Oliveira PA-C [address] [place] [address] [facility] Referral ID Status Reason Start Date Expiration Date Visits Re quested Visits Authorized [id number] Closed 05/10/2016 05/10/2017 1 1 Comments Your provider has referred you to: FM[facility]: [facility] [email or web address] Please be aware that coverage of these services is subject to the terms and limitations of your health insurance plan. Call member services at your health plan with any benefit or coverage questions. Please bring the following to your appointment: >> Any x-rays, CTs or MRIs which have been performed. Contact the facility where they were done to arrange for pepper picker prior to your scheduled appointment. >> List of current medications >> This referral request >> Any documents/labs given to you for this referral Reason for Visit * Reason Onset Date Comments MyChart Communication 05/10/2016 lab result s Encounter Details Date Type Department Care Team (Late st Contact Info) Description 05/10/2016 [facility] Advice [facility] [id number] [place] [phone] Bernie Oliveira PA-C [address] [place] [phone] MyChart Communication (lab results) Social History Tobacco [...] documented as of this encounter Care Teams Fishing Rod Assembler Relationship Specialty Start Date End Date No Ref-Primary, Physician PCP - General 07/22/17 Adrián Guzman PA-C [address] [place] [address] PCP - Assigned PCP 07/28/17 08/30/18 Ravin Freeman PA-C [address] [place] [address] PCP - Assigned PCP 08/31/18 10/14/18 Irma Paredes MD Resident Rheumatology 12/31/14 10/07/18 Lashanda Crocker, PhD LP 9 [place] [address] Psychology 12/31/14 Ravin Freeman PA-C [address] [place] [address] Assigned PCP 08/31/18 08/01/19 documented as of this encounter
--- OUTSIDE RECORDS SUMMARY | 2023-12-14 01:56 | XMS_ITS | Encounter Summary ---
Author Name Unknown Organization [place] Address [facility] [place] [address] Care Team Providers Care Community Pharmacist Name Role Phone Irma Paredes MD Unavailable [phone] Lashanda Crocker PhD LP Unavailable [phone] No Ref-Primary, Physician Primary Care Provider Adrián Guzman PA-C Unavailable Ravin Freeman PA-C Unavailable Ravin Freeman PA-C Unavailable Encounter Details Date Type Department Care Team (Latest Contact Info) Description 06/16/2015 MyC Medical Advice [facility] Adult Rheumatology 2nd Floor, Clinic [address] [phone] Irma Paredes MD [address] [place] [address] Systemic lupus erythematosus (Primary Dx); Long-term use [...] Results * CRP inflammation (07/15/2015 10:01 AM STITCH SEPARATOR) Pathologist [facility] CRP Inflammation <2.9 0.0 - 8.0 mg/L [facility] Blood specimen (specimen) 07/15/2015 10:01 AM STITCH SEPARATOR 07/15/2015 10:02 AM STITCH SEPARATOR Irma Paredes MD LAB - BLOOD MIRELLA LEON [facility] [address] [place] [address] * (ABNORMAL) ESR (07/15/2015 10:01 AM STITCH SEPARATOR) [facility] Sed Rate 24(H) 0 - 20 mm/h [facility] Blood specimen (specimen) 07/15/2015 10:01 AM STITCH SEPARATOR 07/15/2015 10:02 AM STITCH SEPARATOR Irma Paredes MD LAB - BLOOD MIRELLA LEON Performing Organization Address City/[facility]/ZIP Co de Phone Number [facility] [place] [address] * Comprehensive metabolic panel (07/15/2015 10:01 AM STITCH SEPARATOR) [facility] Sodium 138 133 - 144 mmol/L [facility] Potassium 4.0 3.4 - 5.3 mmol/L [facility] Chloride 106 94 - 109 mmol/L [facility] Carbon Dioxide 25 20 - 32 mmol/L [facility] Anion Gap 7 3 - 14 mmol/L [facility] Glucose 94 70 - 99 mg/dL [facility] Urea Nitrogen 13 7 - 30 mg/dL [facility] Creatinine 0.77 0.52 - 1.04 mg/dL [facility] GFR Estimate 86 >60 mL/min/1. 7m2 [facility] Comment:Non GFR Calc GFR Estimate If Black >90 GFR Calc >60 mL/min/1. 7m2 [facility] Calcium 8.9 8.5 - 10.1 mg/dL [facility] Bilirubin Total 0.4 0.2 - 1.3 mg/dL [facility] Albumin 3.9 3.4 - 5.0 g/dL [facility] Protein Total 7.5 6.8 - 8.8 g/dL [facility] Alkaline Phosphatase 46 40 - 150 U/L [facility] ALT 22 0 - 50 U/L [facility] AST 15 0 - 45 U/L [facility] Blood specimen (specimen) 07/15/2015 10:01 AM STITCH SEPARATOR 07/15/2015 10:02 AM STITCH SEPARATOR Irma Paredes MD LAB - BLOOD MIRELLA LEON [facility] [address] [place] [address] * CBC with platelets differential (07/15/2015 10:01 AM STITCH SEPARATOR) WBC 7.7 4.0 - 11.0 10e9/L [facility] RBC Count 4.10 3.8 - 5.2 10e12/L [facility] Hemoglobin 11.8 11.7 - 15.7 g/dL [facility] Hematocrit 35.3 35.0 - 47.0 % [facility] MCV 86 78 - 100 fl [facility] MCH 28.8 26.5 - 33.0 pg [facility] MCHC 33.4 31.5 - 36.5 g/dL [facility] RDW 13.7 10.0 - 15.0 % [facility] Platelet Count 296 150 - 450 10e9/L [facility] Diff Method Automated Method [facility] % Neutrophils 68.4 % [facility] % Lymphocytes 23.9 % [facility] % Monocytes 5.9 % [facility] % Eosinophils 1.4 % [facility] % Basophils 0.4 % [facility] Absolute Neutrophil 5.3 1.6 - 8.3 10e9/L [facility] Absolute Lymphocytes 1.9 0.8 - 5.3 10e9/L [facility] Absolute Monocytes 0.5 0.0 - 1.3 10e9/L [facility] Absolute Eosinophils 0.1 0.0 - 0.7 10e9/L [facility] Absolute Basophils 0.0 0.0 - 0.2 10e9/L [facility] Blood specimen (specimen) 07/15/2015 10:01 AM STITCH SEPARATOR 07/15/2015 10:02 AM STITCH SEPARATOR Irma Paredes MD LAB - BLOOD MIRELLA LEON [facility] [place] [address] documented in this encounter Visit Diagnoses Diagnosis Systemic lupus erythematosus- Primary Long-term use of Plaquenil Encounter for monitoring of methotrexate therapy documented in this encounter Care Teams Community Pharmacist Relationship Specialty Start Date End Date No Ref-Primary, Physician PCP - General 07/22/17 Adrián Guzman PA-C [address] [place] [address] PCP - Assigned PCP 07/28/17 08/30/18 Ravin Freeman PA-C [address] [place] [address] PCP - Assigned PCP 08/31/18 10/14/18 Irma Paredes MD Resident Rheumatology 12/31/14 10/07/18 Lashanda Crocker, PhD LP 909 [place] [address] Psychology 12/31/14 Ravin Freeman PA-C [address] [place] [address] Assigned PCP 08/31/18 08/01/19 documented as of this encounter
--- OUTSIDE RECORDS SUMMARY | 2023-12-14 01:56 | XMS_ITS | Clinical Summary ---
Author Name Unknown Organization [facility] Address [place], [place] [address] Care Team Providers Care Horticultural Worker Name Role Phone Gypsy Jung MD Primary [...] by mouth once daily. 0 10/25/2021 Active jsqqqg-lffazjmo-ady lase (Creon) 12,000-38,000 -60,000 unit cpDR delayed-release [...] Department Care Team Description 10/04/2023 Lab Requisition [facility] [phone] Shantell Mccarthy DO 09/24/2023 10:15 AM LIEN SEARCHER Ancillary Procedure [facility] [address] [place] [address] 09/24/2023 10:00 AM LIEN SEARCHER Ancillary Procedure [facility] [address] [place] [address] 09/24/2023 8:40 AM LIEN SEARCHER Office Visit [facility] [address] [place] [address] Selvin Logan MD Musculoskeletal Problem (Consultation for bilateral hip pain x 2 + months/Hurts to sit for long periods of time and to lay on either side./Recent diagnosis of Lupus ) 09/24/2023 Travel 09/16/2023 8:45 AM LIEN SEARCHER Office Visit [facility] [address] [place] [address] Gypsy Jung MD Establish Care (stomach pain/constipation, insomnia) 09/16/2023 Travel from Last 3 Months Immunizations Name [...] 8 9 Eleuterio Borow /Hube rty Delivery Location:[facility] Comments:FTP 09/11 Term 38w 6d 3.51 kg (7 lb 11.8 oz) F Spina l N Jerri ng 8 9 Tammy Borow /Hube rty Delivery Location:[facility] Comments:repeat Comments LMP 01/08/08 Last Filed Vital Signs Vital Sign Reading Time Taken Comments Blood Pressure 124/77 09/24/2023 8:44 AM LIEN SEARCHER Pulse 73 09/24/2023 8:44 AM LIEN SEARCHER Temperature 36.8 ??C (98.3 ??F) 09/03/2023 8:57 AM CS T Respiratory Rate 16 09/16/2022 11:23 AM LIEN SEARCHER Oxygen Saturation 100% 09/24/2023 8:44 AM LIEN SEARCHER Inhaled Oxygen Concentration - - Weight 64 kg (141 lb 3.2 oz) 09/16/2023 8:53 AM LIEN SEARCHER Height 161.6 cm (5' 3.62) 09/16/2023 8:53 AM CS T Body Mass Index 24.53 09/16/2023 8:53 AM LIEN SEARCHER Plan of Treatment Health Maintenance Due Date [...] exists Pap test for age 21-65 08/09/2026 3, 08/09/2023, 10/31/2016, Additional history exists HIV for age 15-65 Completed 01/13/2010, 03/23/2008 Tdap Completed 09/14/2010 Hepatitis C screening for age 18-79 Completed 05/09/2022 Pneumococcal series for age 6-64 Aged Out No longer eligible based on patient's age to complete this topic Procedures Procedure Name Priority Date/Time Associated Diagnosis Comments LAB TRACKING EVENT Routine 10/03/2023 12 :27 PM LIEN SEARCHER PATH TISSUE EXAM Routine 10/03/2023 12:2 7 PM LIEN SEARCHER XR SPINE LUMBAR 3 VIEWS Routine 09/24/2023 10:12 AM LIEN SEARCHER Chronic left-sided low back pain with left-sided sciatica XR HIP 1 VIEW W PELVIS LEFT Routine 09/24/2023 10:11 AM LIEN SEARCHER Bilateral hip pain STREETCAR STARTER THIN PREP PAP SCREEN IMAGED Routine 08/09/2023 12:00 PM LIEN SEARCHER ANTI HCV Routine 05/09/2022 9:19 AM CDT Need for hepatitis C screening test ANTI HIV 1/2 Routine 01/13/2010 11:23 AM CDT Amenorrhea from Last 3 Months or Most Recently Relevant to Health Maintenance Results * LAB TRACKING EVENT (10/03/2023 12:27 PM LIEN SEARCHER) Other (Other) Client Collect / Unknown 10/03/2023 12:27 PM LIEN SEARCHER 10/04/2023 11:42 AM LIEN SEARCHER Shantell Mccarthy DO LAB BILL ONLY [facility] [address] [place] [address], * PATH TISSUE EXAM (10/03/2023 12:27 PM LIEN SEARCHER) Case Report Pathology Report ?Case: [id number] ? Authorizing Provider: ??Fabio Shantell Viclou, DO ? Collected: ? 10/03/2023 1227 ? Ordering Location: ? [facility] ?Received: ?10/04/2023 1349 ? Pathologist: ? Tena Warren MD ? Specimen: ?Uterus and Cervix ? 10/10/2023 12:14 PM LIEN SEARCHER [facility] ENTRAL LABORATORY Final Diagnosis A) UTERUS WITH [...] 6. Negative for malignancy 10/10/2023 12:14 PM LIEN SEARCHER [facility] EN[facility] LABOR[facility] Clinical Information Menorrhagia, pelvic pain, endometriosis. Pap ASCUS, HR-HPV positive. 10/10/2023 12:14 PM LIEN SEARCHER [facility]OR[facility]-C ENTRAL LABORATORY Gross Description A) Received [...] average thickness. ??No intramural nodules are identified. Locksmith sections are submitted as follows: 1. ??Anterior [...] to 12:00 ADW 10/08/2023 10/10/2023 12:14 PM LIEN SEARCHER [facility] EN[facility]AL LABORATORY Microscopic Description The final diagnosis is based on microscopic examination of appropriate sections of all specimens. A p16 immunostain was performed on block A7 to assist in evaluation. The p16 immunostain is negative for diffuse expression. 10/10/2023 12:14 PM LIEN SEARCHER [facility] EN[facility]AL LABORATORY Additional Information Interpreted at [facility], Central Laboratory - [address], [place] [address] 10/10/2023 12:14 PM LIEN SEARCHER [facility] ENTRAL LABORATORY Other (Uterus and Cervix) 10/03/2023 12:27 PM LIEN SEARCHER 10/04/2023 1:49 PM LIEN SEARCHER Shantell Jayy Mccarthy DO PATHOLOGY/CYTOLOGY [facility] [address] [place] [address], * XR SPINE LUMBAR 3 VIEWS (09/24/2023 10:12 AM LIEN SEARCHER) Anatomical Region Laterality Modality LUMBAR SPINE Computed Radiogr aphy Narrative 09/24/2023 3:18 PM LIEN SEARCHER INDICATION: Chronic low back pain COMPARISON: None TECHNIQUE: 3 views lumbar spine FINDINGS: Lumbar vertebral bodies are normal in height and alignment. ?? Normal disc spaces and facet joints. ??Sacroiliac joints are maintained. ?? Normal hip joints. Impression: Normal lumbar spine radiographs. Selvin Logan MD GENERAL IMAGING * XR HIP 1 VIEW W PELVIS LEFT (09/24/2023 10:11 AM LIEN SEARCHER) Anatomical Region Laterality Modality HIPS, HIPL, Pelvis Computed Radi ography Impressions 09/24/2023 3:19 PM LIEN SEARCHER Normal radiographs of the pelvis and left hip. Narrative 09/24/2023 3:19 PM LIEN SEARCHER INDICATION: Lateral hip and buttock pain COMPARISON: None TECHNIQUE: AP pelvis and lateral view left hip FINDINGS: Normal osseous structures without fracture. ??Normal joint spaces. Selvin Logan MD GENERAL IMAGING * (ABNORMAL) STREETCAR STARTER THIN PREP PAP SCREEN IMAGED (08/09/2023 12:00 PM LIEN SEARCHER) Case Report Gynecologic Cytology Report ? Case: [id number] ? Authorizing Provider: ??Vu, Gila Tanna, MD ?Collected: ? 08/09/2023 1200 ? Ordering Location: ? [facility] ?Received: ?08/14/2023 0940 ? First Screen: ?Ethan Manning ? Rescreen: ?Italia, Kellie L ? Pathologist: ? Kahlil Santos Jr., ? MD ? Specimen: ?STREETCAR STARTER ThinPrep Vial Screening, Cervical ? 08/15/2023 10:16 AM [facility] INTERPRETATION/ RESULT ATYPICAL SQUAMOUS CELLS OF UNDETERMINED SIGNIFICANCE (ASCUS)(A) (none) 08/15/2023 10:16 AM [facility] IMEN ADEQUACY Satisfactory for evaluation Endocervical component present 08/15/2023 10:16 AM [facility] HPV REQUEST HPV and PAP 08/15/2023 10:16 AM [facility] Last Pap Date 10/31/2016 08/15/2023 10:16 AM [facility] Last Pap Result NIL 10:16 AM [facility] Abnormal Pap or [place] Bx in last 5 years No 08/15/2023 10:16 AM [facility] [place] Bx Done Today Yes 08/15/2023 10:16 AM [facility] Additional Information 08/15/2023 10:16 AM [facility] Comment: Interpreted at [facility], Central Laboratory - [address], [place] [address] Automated Review Successful 08/15/2023 10:16 AM [facility] Comment:Specimen processed s uccessfully by automated catering server device, ThinPrep Imaging System, [employer] ANCILLARY TESTING STREETCAR STARTER HPV Ordered, Please see separate report 08/15/2023 10:16 AM [facility] Note The pap test is a screening technique, not a diagnostic procedure. It is used primarily to screen for squamous cancers and precursor lesions. Published studies have shown that it is subject to both false negative and false positive results. The pap test should not be used as the sole means to diagnose or exclude pre-malignant and malignant lesions. 08/15/2023 10:16 AM [facility] Other (Cervical) 08/09/2023 12:00 PM LIEN SEARCHER 08/14/2023 9:40 AM LIEN SEARCHER Gila Tanna Ambrocio MD PATHOLOGY/CYTOLOGY [facility] [address] [place] [address], [place] * ANTI HCV (05/09/2022 9:19 AM CDT) HEPATITIS C ANTIBODY Non-React jake Non-React jake 05/09/2022 6:36 PM CDT [facility] Comment:Antibodies to HCV no t detected; does not exclude the possibility of exposure to HCV. Blood BLOOD SPECIMEN / Unknown Venipuncture / Unknown 05/09/2022 9:19 AM CDT 05/09/2022 9:22 AM CDT Rupal BORGES [facility] [address] [place] [address], [place] * ANTI HIV 1/2 (01/13/2010 11:23 AM CDT) ANTI HIV 1/2 Non-reacti ve [facility] Blood specimen (specimen) BLOOD SPECIMEN / Unknown 01/13/2010 11:23 AM CDT 01/13/2010 11:14 AM CDT Vanita Tuttle MD SEND OUTS [facility] INTERNAL ZIP [address] [address] from Last 3 Months or Most Recently [...] 12:51 PM 10/20/2008 7:46 AM Care Teams Horticultural Worker Relationship Specialty Start Date End Date Gypsy Jung MD [address] [facility] [address] PCP - General Family Practice 09/16/23
--- OUTSIDE RECORDS SUMMARY | 2023-12-14 01:56 | XMS_ITS | Encounter Summary ---
Author Name Unknown Organization [place] Address [address] [place] [address]. [place] [address] Care Team Providers Care Loading Unit Operator Crimping Name Role Phone Irma Paredes MD Unavailable [phone] Lashanda Crocker PhD LP Unavailable No Ref-Primary, Physician Primary Care Provider Adrián Guzman PA-C Unavailable Ravin Freeman PA-C Unavailable [phone] Ravin Freeman PA-C Unavailable Reason for Visit * Reason Onset Date Comments MyChart Communication 10/14/2015 f/u regard ing pain Encounter Details Date Type Department Care Team (Late st Contact Info) Description 10/14/2015 [facility] Medical Advice [facility] [address] [place] [address], [address] [place] [address] Adrián Guzman PA-C [address] [place] [address] MyChart Communication (f/u regarding pain) [...] f/u for pain. Celine Agarwal RN, BSN UELS PLANT MANAGER documented in this encounter Plan of Treatment Not on file documented as of this encounter Visit Diagnoses Diagnosis Spells- Primary Other convulsions documented in this encounter Care Teams Loading Unit Operator Crimping Relationship Specialty Start Date End Date No Ref-Primary, Physician PCP - General 07/22/17 Adrián Guzman PA-C [address] [place] [address] PCP - Assigned PCP 07/28/17 08/30/18 Ravin Freeman PA-C [address] [place] [address] PCP - Assigned PCP 08/31/18 10/14/18 Irma Paredes MD Resident Rheumatology 12/31/14 10/07/18 Lashanda Crocker, PhD LP 909 [place] [address] Psychology 12/31/14 Ravin Freeman PA-C [address] [place] [address] Assigned PCP 08/31/18 08/01/19 documented as of this encounter
--- OUTSIDE RECORDS SUMMARY | 2023-12-14 01:56 | XMS_ITS | Encounter Summary ---
Author Name Unknown Organization [place] Address [address] [place] [address] Care Team Providers Care Training Representative Name Role Phone Irma Paredes MD Unavailable Lashanda Crocker PhD LP Unavailable [phone] No Ref-Primary, Physician Primary Care Provider Adriná Guzman PA-C Unavailable Ravin Freeman PA-C Unavailable [phone] Ravin Freeman PA-C Unavailable [phone] Reason for Visit * Reason Onset Date Comments Medication Question 12/21/2015 topamax Encounter Details Date Type Department Care Team (Late st Contact Info) Description 12/21/2015 [facility] Medical Advice [facility] Pain Management [address] [place], [place] [address] Courtney Glover DO [facility] [address] [place], [place] [address] Medication Question (topamax) Social History Tobacco Use [...] nurseline with an update or send a CellTrant message. MORGAN Dumont, RN- Patient Care Fisher Hoop Net/Nursing Unit Clerk [facility] * Telephone Encounter - Jihan Cr RN - 12/26/2015 11:37 AM CDT Pt read the last message on 12/20 shortly after it was sent. Will await update from pt. MORGAN Dumont, RN- Patient Care Fisher Hoop Net/Nursing Unit Clerk [facility] * Telephone Encounter - [...] Take care, MORGAN Dumont, RN- Patient Care Fisher Hoop Net/Nursing Unit Clerk [facility] * Telephone Encounter - Courtney Glover DO - 12/21/2015 3:04 PM CDT The tingly sensation is commonly reported when starting this medication. I typically recommend to increase water intake, and slow down on the taper until the symptoms have subsided. If the sensation is bothersome, which it sounds like it is, she should discontinue it. Courtney Glover DO [facility] [place] * Telephone Encounter - Jihan Cr RN - 12/21/2015 2:19 PM CDT Pt reported taking only 25 mg at bedtime and this is the initial dose that was ordered. MORGAN Dumont, RN- Patient Care Fisher Hoop Net/Nursing Unit Clerk [facility] * Telephone Encounter - Courtney Glover DO - 12/21/2015 1:38 PM CDT The prickly/tingly feeling can be due to the topamax. What dose is she taking? She should decrease back to the dose she was on prior to getting the tingly feeling. Courtney Glover DO [facility] * Telephone Encounter - Jihan Cr RN [...] of topamax. MORGAN Dumont, RN- Patient Care Fisher Hoop Net/Nursing Unit Clerk [facility] * Telephone Encounter - [...] documented as of this encounter Care Teams Training Representative Relationship Specialty Start Date End Date No Ref-Primary, Physician PCP - General 07/22/17 Adrián Guzman PA-C [address] [facility] [place] [address] PCP - Assigned PCP 07/28/17 08/30/18 Ravin Freeman PA-C [address] [place], [place] [id number] PCP - Assigned PCP 08/31/18 10/14/18 Irma Paredes MD Resident Rheumatology 12/31/14 10/07/18 Lashanda Crocker, PhD LP [address] [place] [address] Psychology 12/31/14 Ravin Freeman PA-C [address] [place] [address] Assigned PCP 08/31/18 08/01/19 documented as of this encounter
--- OUTSIDE RECORDS SUMMARY | 2023-12-14 01:56 | XMS_ITS | Encounter Summary ---
Author Name Unknown Organization [place] Address [facility] [place] [address] Care Team Providers Care Order To Delivery Supervisor Name Role Phone Irma aPredes MD Unavailable Lashanda Crocker PhD LP Unavailable [phone] No Ref-Primary, Physician Primary Care Provider Adrián Guzman PA-C Unavailable Ravin Freeman PA-C Unavailable Ravin Freeman PA-C Unavailable Encounter Details Date Type Department Care Team (Late st Contact Info) Description 09/08/2015 MyC Medical Advice [facility] Adult Rheumatology 2nd Floor, Clinic [address] [address] Irma Paredes MD [address] [place] [address] Social History Tobacco Use Types Packs/Day Years [...] on filedocumented in this encounter Care Teams Order To Delivery Supervisor Relationship Specialty Start Date End Date No Ref-Primary, Physician PCP - General 07/22/17 Adrián Guzman PA-C [address] [place] [address] PCP - Assigned PCP 07/28/17 08/30/18 Ravin Freeman PA-C [address] [place], [place] [id number] PCP - Assigned PCP 08/31/18 10/14/18 Irma Paredes MD Resident Rheumatology 12/31/14 10/07/18 Lashanda Crocker, PhD LP 9 [place] [address] Psychology 12/31/14 Ravin Freeman PA-C [address] [place] [address] Assigned PCP 08/31/18 08/01/19 documented as of this encounter
--- OUTSIDE RECORDS SUMMARY | 2023-12-14 01:56 | XMS_ITS | Encounter Summary ---
Author Name Unknown Organization [place] Address [address] [place] [address]. [place] [address] Care Team Providers Care Woodworking Craftsman Name Role Phone Irma Paredes MD Unavailable [phone] Lashanda Crocker PhD LP Unavailable No Ref-Primary, Physician Primary Care Provider Adrián Guzman PA-C Unavailable [phone] Ravin Freeman PA-C Unavailable Ravin Freeman PA-C Unavailable Reason for Visit * Reason Onset Date Comments MyChart Communication 11/14/2015 Endocrinol ogist Encounter Details Date Type Department Care Team (Late st Contact Info) Description 11/14/2015 MyC Medical Advice [facility] [address] [place] [address], [address] [place] [address] Adrián Guzman PA-C [address] [place] [address] MyChart Communication (Chair Inspector) Social History Tobacco Use Types Packs/Day Years [...] on filedocumented in this encounter Care Teams Woodworking Craftsman Relationship Specialty Start Date End Date No Ref-Primary, Physician PCP - General 07/22/17 Adrián Guzman PA-C [address] [place] [address] PCP - Assigned PCP 07/28/17 08/30/18 Ravin Freeman PA-C [address] [place] [address] PCP - Assigned PCP 08/31/18 10/14/18 Irma Paredes MD Resident Rheumatology 12/31/14 10/07/18 Lashanda Crocker, PhD LP 909 [place] [address] Psychology 12/31/14 Ravin Freeman PA-C [address] [place] [address] Assigned PCP 08/31/18 08/01/19 documented as of this encounter
--- OUTSIDE RECORDS SUMMARY | 2023-12-14 01:56 | XMS_ITS | Encounter Summary ---
Author Name Unknown Organization [place] Address [facility] [place] [address] Care Team Providers Care Social Problems Specialist Name Role Phone Irma Paredes MD Unavailable [phone] Lashanda Crocker PhD LP Unavailable [phone] No Ref-Primary, Physician Primary Care Provider Adrián Guzman PA-C Unavailable Ravin Freeman PA-C Unavailable [phone] Ravin Freeman PA-C Unavailable Reason for Referral * Consultation - Closed Specialty Diagnoses / Procedures Referred By Francisca murrieta Referred To Contact Diagnoses Hypoglycemia Adrián Guzman PA-C [address] [place] [address] [facility] Referral ID Status Reason Start Date Expiration Date Visits Re quested Visits Authorized [id number] Closed 03/30/2016 03/30/2017 1 1 Comments Your provider has referred you to: [facility]: [facility] [email or web address] Please be aware that coverage of these services is subject to the terms and limitations of your health insurance plan. Call member services at your health plan with any benefit or coverage questions. Please bring the following to your appointment: >> Any x-rays, CTs or MRIs which have been performed. Contact the facility where they were done to arrange for grape picker prior to your scheduled appointment. Any new CT, MRI or other procedures ordered by your specialist must be performed at a [facility] or coordinated by your clinic's referral office. >> List of current medications >> This referral request >> Any documents/labs given to you for this referral Reason for Visit * Reason Onset Date Comments MyChart Communication 03/29/2016 Encounter Details Date Type Department Care Team (Late st Contact Info) Description 03/29/2016 [facility] Medical Advice [address], [address] [place] [address] Adrián Guzman PA-C [address] [place] [address] MyChart Communication Social History Tobacco [...] documented as of this encounter Care Teams Social Problems Specialist Relationship Specialty Start Date End Date No Ref-Primary, Physician PCP - General 07/22/17 Adrián Guzman PA-C [address] [facility] [place] [address] PCP - Assigned PCP 07/28/17 08/30/18 Ravin Freeman PA-C [address] [place] [address] PCP - Assigned PCP 08/31/18 10/14/18 Irma Praedes MD Resident Rheumatology 12/31/14 10/07/18 Lashanda Crocker, PhD LP [address] [place] [address] Psychology 12/31/14 Ravin Freeman PA-C [address] [place] [address] Assigned PCP 08/31/18 08/01/19 documented as of this encounter
--- OUTSIDE RECORDS SUMMARY | 2023-12-14 01:56 | XMS_ITS | Encounter Summary ---
Author Name Unknown Organization [place] Address [facility] [place] [address] Care Team Providers Care Pastoral Ministries Professor Name Role Phone Irma Paredes MD Unavailable Lashanda Crocker PhD LP Unavailable [phone] No Ref-Primary, Physician Primary Care Provider Adrián Guzman PA-C Unavailable Ravin Freeman PA-C Unavailable Ravin Freeman PA-C Unavailable Encounter Details Date Type Department Care Team (Late st Contact Info) Description 07/19/2015 MyC Medical Advice [facility] Adult Rheumatology 2nd Floor, Clinic [address] [phone] Irma Paredes MD [address] [place] [address] Social History Tobacco Use Types Packs/Day Years [...] on filedocumented in this encounter Care Teams Pastoral Ministries Professor Relationship Specialty Start Date End Date No Ref-Primary, Physician PCP - General 07/22/17 Adrián Guzman PA-C [address] [place] [address] PCP - Assigned PCP 07/28/17 08/30/18 Ravin Freeman PA-C [address] [place], [place] [id number] PCP - Assigned PCP 08/31/18 10/14/18 Irma Paredes MD Resident Rheumatology 12/31/14 10/07/18 Lashanda Crocker, PhD LP 9 [place] [address] Psychology 12/31/14 Ravin Freeman PA-C [address] [place] [address] Assigned PCP 08/31/18 08/01/19 documented as of this encounter
--- OUTSIDE RECORDS SUMMARY | 2023-12-14 01:56 | XMS_ITS | Clinical Summary ---
Author Name Unknown Organization [place] Address [address] [place] [address] Care Team Providers Care Microbiology Coordinator Name Role Phone Lashanda Crocker PhD LP Unavailable [phone] No Ref-Primary, Physician Primary Care Provider Allergies [...] migh t be different from the original. [email or web address] Problem Noted Date Diagnosed Date Migraine without aura and wi thout status migrainosus, not intractable 07/26/2016 Fibromyalgia 12/21/2015 Encounter for monitoring of methotrexate therapy 06/16/2015 MATILDA positive 01/06/2015 Overview: 1:160 homogenous - IFA from [place] 12/2014 EIA [facility] negative Systemic lupus erythematosus [...] Comments Blood Pressure 102/64 07/22/2017 1:42 PM MACHINE CLEANER Pulse 88 07/22/2017 1:42 PM MACHINE CLEANER Temperature 36.4 ??C (97.5 ??F) 07/22/2017 1:42 PM CS T Respiratory Rate 12 05/31/2016 7:40 AM CDT Oxygen Saturation 99% 07/22/2017 1:42 PM MACHINE CLEANER Inhaled Oxygen Concentration - - Weight 67.9 kg (149 lb 11.2 oz) 07/22/2017 1:42 PM MACHINE CLEANER Height 159.4 cm (5' 2.75) 07/22/2017 1:42 PM CS T Body Mass Index 26.73 07/22/2017 1:42 PM MACHINE CLEANER Plan of Treatment Not on file Care Teams Microbiology Coordinator Relationship Specialty Start Date End Date No Ref-Primary, Physician PCP - General 07/22/17 Lashanda Crocker, PhD LP [address] [place] [address] Psychology 12/31/14
--- OUTSIDE RECORDS SUMMARY | 2023-12-14 01:56 | XMS_ITS | Referral Summary ---
Author Name Unknown Organization [place] Address [address] [place] [address] Care Team Providers Care Planning Official Name Role Phone Lashanda Crocker PhD LP Unavailable [phone] No Ref-Primary, Physician Primary Care Provider Allergies [...] migh t be different from the original. [email or web address] Problem Noted Date Diagnosed Date Migraine without aura and wi thout status migrainosus, not intractable 07/26/2016 Fibromyalgia 12/21/2015 Encounter for monitoring of methotrexate therapy 06/16/2015 MATILDA positive 01/06/2015 Overview: 1:160 homogenous - IFA from [place] 12/2014 EIA [facility] negative Systemic lupus erythematosus [...] Comments Blood Pressure 102/64 07/22/2017 1:42 PM SPEED OPERATOR Pulse 88 07/22/2017 1:42 PM SPEED OPERATOR Temperature 36.4 ??C (97.5 ??F) 07/22/2017 1:42 PM CS T Respiratory Rate 12 05/31/2016 7:40 AM CDT Oxygen Saturation 99% 07/22/2017 1:42 PM SPEED OPERATOR Inhaled Oxygen Concentration - - Weight 67.9 kg (149 lb 11.2 oz) 07/22/2017 1:42 PM SPEED OPERATOR Height 159.4 cm (5' 2.75) 07/22/2017 1:42 PM CS T Body Mass Index 26.73 07/22/2017 1:42 PM SPEED OPERATOR Plan of Treatment Not on file Care Teams Planning Official Relationship Specialty Start Date End Date No Ref-Primary, Physician PCP - General 07/22/17 Lashanda Crocker, PhD LP [address] [place] [address] Psychology 12/31/14
--- OUTSIDE RECORDS SUMMARY | 2023-12-14 01:56 | XMS_ITS | Encounter Summary ---
Author Name Unknown Organization [place] Address [facility] [place] [address] Care Team Providers Care Animal Sitter Name Role Phone Irma Paredes MD Unavailable Lashanda Crocker PhD LP Unavailable No Ref-Primary, Physician Primary Care Provider Adrián Guzman PA-C Unavailable Ravin Freeman PA-C Unavailable Ravin Freeman PA-C Unavailable Encounter Details Date Type Department Care Team (Latest Contact Info) Description 06/30/2015 MyC Medical Advice [facility] Adult Rheumatology 2nd Floor, Clinic [address]A [address] [address] Irma Paredes MD [address] [address] Systemic lupus erythematosus (H) (Primary Dx) Social [...] Irma Paredes MD - 06/30/2015 5:53 PM WETLAND SCIENTIST Sent tonight! Thanks! AND SCIENTIST documented in this encounter Plan of Treatment Not on file documented as of this encounter Visit Diagnoses Diagnosis Systemic lupus erythematosus (H)- Primary Systemic lupus erythematosus documented in this encounter Care Teams Animal Sitter Relationship Specialty Start Date End Date No Ref-Primary, Physician PCP - General 07/22/17 Adrián Guzman PA-C [address] [place] [address] PCP - Assigned PCP 07/28/17 08/30/18 Ravin Freeman PA-C [address] [place] [address] PCP - Assigned PCP 08/31/18 10/14/18 Irma Paredes MD Resident Rheumatology 12/31/14 10/07/18 Lashanda Crocker, PhD LP 9 [place] [address] Psychology 12/31/14 Ravin Freeman PA-C [address] [place], [place] [address] Assigned PCP 08/31/18 08/01/19 documented as of this encounter
--- OUTSIDE RECORDS SUMMARY | 2023-12-14 01:57 | XMS_ITS | Encounter Summary ---
Author Name Unknown Organization [place] Address [facility] [place] [address] Care Team Providers Care Oil Mixer Name Role Phone Irma Paredes MD Unavailable [phone] Lashanda Crocker PhD LP Unavailable [phone] No Ref-Primary, Physician Primary Care Provider Adrián Guzman PA-C Unavailable Ravin Freeman PA-C Unavailable Ravin Freeman PA-C Unavailable Encounter Details Date Type Department Care Team (Late st Contact Info) Description 01/06/2015 MyC Medical Advice [facility] Adult Rheumatology 2nd Floor, Clinic [address] [address] Irma Paredes MD [address] [place] [address] Social History Tobacco Use Types Packs/Day Years [...] on filedocumented in this encounter Care Teams Oil Mixer Relationship Specialty Start Date End Date No Ref-Primary, Physician PCP - General 07/22/17 Adrián Guzman PA-C [address] [place] [address] PCP - Assigned PCP 07/28/17 08/30/18 Ravin Freeman PA-C [address] [place], [place] [id number] PCP - Assigned PCP 08/31/18 10/14/18 Irma Paredes MD Resident Rheumatology 12/31/14 10/07/18 Lashanda Crocker, PhD LP 9 [place] [address] Psychology 12/31/14 Ravin Freeman PA-C [address] [place] [address] Assigned PCP 08/31/18 08/01/19 documented as of this encounter
--- OUTSIDE RECORDS SUMMARY | 2023-12-14 01:57 | XMS_ITS | Encounter Summary ---
Author Name Unknown Organization [place] Address [facility] [place] [address] Care Team Providers Care Statement Clerks Supervisor Name Role Phone Irma Paredes MD Unavailable Lashanda Crocker PhD LP Unavailable [phone] No Ref-Primary, Physician Primary Care Provider Adrián Guzman PA-C Unavailable Ravin Freeman PA-C Unavailable Ravin Freeman PA-C Unavailable Encounter Details Date Type Department Care Team (Late st Contact Info) Description 05/10/2015 MyC Medical Advice [facility] Adult Rheumatology 2nd Floor, Clinic [address]A [address] [address] Irma Paredes MD [address] [place] [address] Social History Tobacco Use Types Packs/Day Years [...] on filedocumented in this encounter Care Teams Statement Clerks Supervisor Relationship Specialty Start Date End Date No Ref-Primary, Physician PCP - General 07/22/17 Adrián Guzman PA-C [address] [place] [address] PCP - Assigned PCP 07/28/17 08/30/18 aRvin Freeman PA-C [address] [place], [place] [address] PCP - Assigned PCP 08/31/18 10/14/18 Irma Paredes MD Resident Rheumatology 12/31/14 10/07/18 Lashanda Crocker, PhD LP 9 [place] [address] Psychology 12/31/14 Ravin Freeman PA-C [address] [place] [address] Assigned PCP 08/31/18 08/01/19 documented as of this encounter
--- OUTSIDE RECORDS SUMMARY | 2023-12-14 01:57 | XMS_ITS | Encounter Summary ---
Author Name Unknown Organization [place] Address Counts include 234 beds at the [facility]0 [facility] [place] [address] Care Team Providers Care Retail Cosmetics Sales Beauty Advisor Name Role Phone Irma Paredes MD Unavailable Lashanda Crocker PhD LP Unavailable [phone] No Ref-Primary, Physician Primary Care Provider Adrián Guzman PA-C Unavailable Ravin Freeman PA-C Unavailable [phone] Ravin Freeman PA-C Unavailable Encounter Details Date Type Department Care Team (Late st Contact Info) Description 12/31/2014 MyC Medical Advice [facility] Adult Rheumatology 2nd Floor, Clinic [address]A [address] [address] Irma Paredes MD [address] [place] [address] Social History Tobacco Use Types Packs/Day Years [...] on filedocumented in this encounter Care Teams Retail Cosmetics Sales Beauty Advisor Relationship Specialty Start Date End Date No Ref-Primary, Physician PCP - General 07/22/17 Adrián Guzman PA-C [address] [place] [address] PCP - Assigned PCP 07/28/17 08/30/18 Ravin Freeman PA-C [address] [place], [place] [address] PCP - Assigned PCP 08/31/18 10/14/18 Irma Paredes MD Resident Rheumatology 12/31/14 10/07/18 Lashanda Crocker, PhD LP 9 [place] [address] Psychology 12/31/14 Ravin Freeman PA-C [address] [place] [address] Assigned PCP 08/31/18 08/01/19 documented as of this encounter
--- OUTSIDE RECORDS SUMMARY | 2023-12-14 01:57 | XMS_ITS | Continuity of Care Document ---
Author Name [facility] Organization [facility] Care Team Providers Care Rn Burn Name Role Phone [facility] Unavailable Unavailable Social History Combined list of available smoking, tobacco, and other social history from Department of Defense and Veterans Affairs facilities. Social History Type Response Date Comment Sourc e This section is an empty social history section. [facility]
--- OUTSIDE RECORDS SUMMARY | 2023-12-14 01:57 | XMS_ITS | Encounter Summary ---
Author Name Unknown Organization [place] Address [facility] [place] [address] Care Team Providers Care Milling General Superintendent Name Role Phone Irma Paredes MD Unavailable [phone] Lashanda Crocker PhD LP Unavailable [phone] No Ref-Primary, Physician Primary Care Provider Adrián Guzman PA-C Unavailable Ravin Freeman PA-C Unavailable Ravin Freeman PA-C Unavailable Encounter Details Date Type Department Care Team (Late st Contact Info) Description 12/29/2014 MyC Medical Advice [facility] Adult Rheumatology 2nd Floor, Clinic [address]A [address] [address] Irma Paredes MD [address] [place] [address] Social History Tobacco Use Types Packs/Day Years [...] on filedocumented in this encounter Care Teams Milling General Superintendent Relationship Specialty Start Date End Date No Ref-Primary, Physician PCP - General 07/22/17 Adrián Guzman PA-C [address] [place] [address] PCP - Assigned PCP 07/28/17 08/30/18 Ravin Freeman PA-C [address] [place], [place] [address] PCP - Assigned PCP 08/31/18 10/14/18 Irma Paredes MD Resident Rheumatology 12/31/14 10/07/18 Lashanda Crocker, PhD LP 9 [place] [address] Psychology 12/31/14 Ravin Freeman PA-C [address] [place] [address] Assigned PCP 08/31/18 08/01/19 documented as of this encounter
--- OUTSIDE RECORDS SUMMARY | 2023-12-14 01:57 | XMS_ITS | Encounter Summary ---
Author Name Unknown Organization [place] Address [facility] [place] [address] Care Team Providers Care Demand Manager Name Role Phone Irma Paredes MD Unavailable Lashanda Crocker PhD LP Unavailable [phone] No Ref-Primary, Physician Primary Care Provider Adrián Guzman PA-C Unavailable Ravin Freeman PA-C Unavailable [phone] Ravin Freeman PA-C Unavailable Encounter Details Date Type Department Care Team (Late st Contact Info) Description 12/31/2014 MyC Medical Advice [facility] Adult Rheumatology 2nd Floor, Clinic [address] [address] Irma Paredes MD [address] [place] [address] Social History Tobacco Use Types Packs/Day Years [...] on filedocumented in this encounter Care Teams Demand Manager Relationship Specialty Start Date End Date No Ref-Primary, Physician PCP - General 07/22/17 Adrián Guzman PA-C [address] [place] [address] PCP - Assigned PCP 07/28/17 08/30/18 Ravin Freeman PA-C [address] [place], [place] [id number] PCP - Assigned PCP 08/31/18 10/14/18 Irma Paredes MD Resident Rheumatology 12/31/14 10/07/18 Lashanda Crocker, PhD LP [address] [place] [address] Psychology 12/31/14 Ravin Freeman PA-C [address] [place] [address] Assigned PCP 08/31/18 08/01/19 documented as of this encounter
--- OUTSIDE RECORDS SUMMARY | 2023-12-14 01:57 | XMS_ITS | Continuity of Care Document ---
Author Name Unknown Organization [facility] Address [address] [facility] [address] [place] [address] Phone Care Team Providers Care Country Sales Manager Name Role Phone Renetta Castorena MD Unavailable [...] Protein Dna Antibody, Single Strand Dna Antibody, Knik Nuclear Antigen Antibodies Complete Cbc WAuto Diff Wbc Office/Outpatient Visit, Est Routine Venipuncture Rbc Sed Rate, Automated Assay Of Serum Albumin Assay Of Creatinine Transferase (Ast) (Sgot) Alanine Amino (Alt) (Sgpt) CReactive Protein Dna Antibody, Single Strand Dna Antibody, Knik Nuclear Antigen Antibodies Complete Cbc WAuto Diff Wbc Office/Outpatient Visit, Est Routine Venipuncture Specimen Handling Rbc Sed Rate, Nonautomated Assay Of Serum Albumin Assay Of Creatinine Transferase (Ast) (Sgot) Alanine Amino (Alt) (Sgpt) CReactive Protein Dna Antibody, Single Strand Dna Antibody, Knik Nuclear Antigen Antibodies Vitamin D 25 Hydroxy Complete Cbc WAuto Diff Wbc Office/Outpatient Visit, Est Routine Venipuncture Rbc Sed Rate, Nonautomated Assay Of Serum Albumin Assay Of Creatinine Transferase (Ast) (Sgot) Alanine Amino (Alt) (Sgpt) Assay Of Ck (Cpk) CReactive Protein Dna Antibody, Single Strand Dna Antibody, Knik Nuclear Antigen Antibodies Complete Cbc WAuto Diff Wbc Office/Outpatient Visit, Est Routine Venipuncture Rbc Sed Rate, Nonautomated Assay Of Serum Albumin Assay Of Creatinine Transferase (Ast) (Sgot) Alanine Amino (Alt) (Sgpt) CReactive Protein Dna Antibody, Single Strand Dna Antibody, Knik Nuclear Antigen Antibodies Vitamin D 25 Hydroxy Complete Cbc WAuto Diff Wbc Office/Outpatient Visit, Est Routine Venipuncture Specimen Handling Rbc Sed Rate, Nonautomated Assay Of Serum Albumin Assay Of Creatinine Transferase (Ast) (Sgot) Alanine Amino (Alt) (Sgpt) CReactive Protein Dna Antibody, Single Strand Dna Antibody, Knik Nuclear Antigen Antibodies Vitamin D 25 Hydroxy Complete Cbc WAuto Diff Wbc Office/Outpatient Visit, Est Routine Venipuncture Rbc Sed Rate, Nonautomated Assay Of Serum Albumin Assay Of Creatinine Transferase (Ast) (Sgot) Alanine Amino (Alt) (Sgpt) CReactive Protein Assay Of Ck (Cpk) Dna Antibody, Single Strand Dna Antibody, Knik Nuclear Antigen Antibodies Vitamin D 25 Hydroxy Complete Cbc WAuto Diff Wbc Office/Outpatient Visit, Est Routine Venipuncture Rbc Sed Rate, Nonautomated Assay Of Serum Albumin Assay Of Creatinine Transferase (Ast) (Sgot) Alanine Amino (Alt) (Sgpt) CReactive Protein Dna Antibody, Single Strand Dna Antibody, Knik Nuclear Antigen Antibodies Complete Cbc WAuto Diff Wbc Office/Outpatient Visit, Est Routine Venipuncture Rbc Sed Rate, Nonautomated Assay Of Serum Albumin Assay Of Creatinine Transferase (Ast) (Sgot) Alanine Amino (Alt) (Sgpt) CReactive Protein Dna Antibody, Single Strand Dna Antibody, Knik Nuclear Antigen Antibodies Complete Cbc WAuto Diff Wbc Office/Outpatient Visit, Est Routine Venipuncture Assay Of Serum Albumin Assay Of Creatinine Transferase (Ast) (Sgot) Alanine Amino (Alt) (Sgpt) CReactive Protein Dna Antibody, Single Strand Dna Antibody, Knik Nuclear Antigen Antibodies Complete Cbc WAuto Diff Wbc Office/Outpatient Visit, Est Routine Venipuncture Specimen Handling Rbc Sed Rate, Nonautomated Assay Of Serum Albumin Assay Of Creatinine Transferase (Ast) (Sgot) Alanine Amino (Alt) (Sgpt) CReactive Protein Dna Antibody, Single Strand Dna Antibody, Knik Nuclear Antigen Antibodies Complete Cbc WAuto Diff Wbc Office/Outpatient Visit, Est Routine Venipuncture Rbc Sed Rate, Nonautomated Assay Of Serum Albumin Assay Of Creatinine Transferase (Ast) (Sgot) Alanine Amino (Alt) (Sgpt) CReactive Protein Dna Antibody, Single Strand Dna Antibody, Knik Nuclear Antigen Antibodies Complete Cbc WAuto Diff Wbc Office/Outpatient Visit, Est Routine Venipuncture Rbc Sed Rate, Nonautomated Assay Of Serum Albumin Assay Of Creatinine Transferase (Ast) (Sgot) Alanine Amino (Alt) (Sgpt) CReactive Protein Dna Antibody, Single Strand Dna Antibody, Knik Nuclear Antigen Antibodies Complete Cbc WAuto Diff Wbc Office/Outpatient Visit, Est Routine Venipuncture Specimen Handling Complete Cbc WAuto Diff Wbc Rbc Sed Rate, Nonautomated Assay Of Serum Albumin Assay Of Creatinine Transferase (Ast) (Sgot) Alanine Amino (Alt) (Sgpt) CReactive Protein Dna Antibody, Single Strand Dna Antibody, Knik Nuclear Antigen Antibodies No Charge Nurse Visit Office/Outpatient Visit, Est Office/Outpatient Visit, Est Routine Venipuncture Complete Cbc WAuto Diff Wbc Rbc Sed Rate, Nonautomated Assay Of Serum Albumin Assay Of Creatinine Transferase (Ast) (Sgot) Alanine Amino (Alt) (Sgpt) CReactive Protein Dna Antibody, Single Strand Dna Antibody, Knik Nuclear Antigen Antibodies Office/Outpatient Visit, Est Routine Venipuncture Complete Cbc WAuto Diff Wbc Rbc Sed Rate, Nonautomated Assay Of Serum Albumin Assay Of Creatinine Transferase (Ast) (Sgot) Alanine Amino (Alt) (Sgpt) CReactive Protein Dna Antibody, Single Strand Dna Antibody, Knik Nuclear Antigen Antibodies Office/Outpatient Visit, Est Routine Venipuncture Complete Cbc WAuto Diff Wbc Rbc Sed Rate, Nonautomated CReactive Protein Assay Of Serum Albumin Assay Of Creatinine Transferase (Ast) (Sgot) Alanine Amino (Alt) (Sgpt) Dna Antibody, Single Strand Dna Antibody, Knik Nuclear Antigen Antibodies Vitamin D 25 Hydroxy [...] Protein Dna Antibody, Single Strand Dna Antibody, Knik Nuclear Antigen Antibodies Vitamin D 25 Hydroxy [...] [address], [place], [address], [place] tel:[phone] [facility] No Information 4 Raffaele Jackson. [facility] [address], [place], [address], [place]. tel:[phone] Office/Outpa tient Visit, Est [facility] , [address], [place], [address], [place] tel:[phone] [facility] , Follow Up of Lupus (chief complaint) Oth organ or system involv in systemic lupus erythematosu sMyalgiaOthe r skilled nursing (current) drug therapy 4 Raffaele Jackson. [facility] [address], [place], [address], [place]. tel:[phone] Referring Provider: Renetta Cm, [facility] [address], [place], [address]. tel:[phone] [facility] , [address], [place], [address], [place] tel:[phone] [facility] No Information 3 Raffaele Randallen. [facility] [address], [place], [address], [place]. tel:[phone] Office/Outpa tient Visit, Est [facility] , [address], [place], [address], [place] tel:[phone] [facility] , Follow Up of Lupus (chief complaint) Other skilled nursing (current) drug therapyMyalg iaOth organ or system involv in systemic lupus erythematosu sPalpitation s 3 Castorenadimitry Randallen. [facility] [address], [place], [address], [place]. tel:[phone] Referring Provider: Renetta Cm, [facility] [address], [place], [address]. tel:[phone] Office/Outpa tient Visit, Est [facility] , [address], [place], [address], [place] tel:[phone] [facility] , Follow Up of Lupus (chief complaint) Other superintendent container terminal (current) drug therapyMyalg iaOth organ or system involv in systemic lupus erythematosu sDepression 3 Raffaele Renetta. [facility] [address], [place], [address], [place]. tel:[phone] Referring Provider: Renetta Cm, [facility] [address], [place], [address]. tel:[phone] Office/Outpa tient Visit, Est [facility] , [address], [place], [address], [place] tel:[phone] [facility] , Follow Up of Lupus (chief complaint) Other superintendent container terminal (current) drug therapyMyalg iaOth organ or system involv in systemic lupus erythematosu s 2 Castorena Renetta. [facility] [address], [place], [address], [place]. tel:[phone] Referring Provider: Renetta Cm, [facility] [address], [place], [address]. tel:[phone] Office/Outpa tient Visit, Est [facility] , [address], [place], [address], [place] tel:[phone] [facility] , Follow Up of Lupus (chief complaint) Other skilled nursing (current) drug therapyMyalg iaOth organ or system involv in systemic lupus erythematosu sNausea 2 Raffaele Jackson. [facility] [address], [place], [address], [place]. tel:[phone] Referring Provider: Renetta Cm, [facility] [address], [place], [address]. tel:[phone] Office/Outpa tient Visit, Est [facility] , [address], [place], [address], [place] tel:[phone] [facility] , Follow Up of Lupus (chief complaint) Other skilled nursing (current) drug therapyVitam in D deficiency, unspecifiedM yalgiaOth organ or system involv in systemic lupus erythematosu s 1 Raffaele Jackson. [facility] [address], [place], [address], [place]. tel:[phone] Referring Provider: Renetta Cm, [facility] [address], [place], [address]. [phone] Office/Outpa tient Visit, Est [facility] , [address], [place], [address], [place] tel:[phone] [facility] , Follow Up of Lupus (chief complaint) Oth organ or system involv in systemic lupus erythematosu sOther skilled nursing (current) drug therapyVitam in D deficiency, unspecifiedM yalgia 0 Raffaele Jackson. [facility] [address], [place], [address], [place]. tel:[phone] Referring Provider: Renetta Cm, [facility] [address], [place], [address]. tel:[phone] Office/Outpa tient Visit, Est [facility] , [address], [place], [address], [place] tel:[phone] [facility] , Follow Up of Lupus (chief complaint) Oth organ or system involv in systemic lupus erythematosu sOther skilled nursing (current) drug therapyAnter ior chest-wall painTrochant kamlesh bursitis, unspecified hip 0-202 0 Raffaele Jackson. [facility] [address], [place], [address], [place]. tel:[phone] Referring Provider: Renetta Cm, [facility] [address], [place], [address]. tel:[phone] Office/Outpa tient Visit, Est [facility] , [address], [place], [address], [place] tel:[phone] [facility] , Follow Up of Lupus (chief complaint) Pain in thoracic spineOth organ or system involv in systemic lupus erythematosu sOther superintendent container terminal (current) drug therapy 0 9 Raffaele Jackson. [facility] [address], [place], [address], [place]. tel:[phone] Referring Provider: Renetta Cm, [facility] [address], [place], [address]. tel:[phone] Office/Outpa tient Visit, Est [facility] , [address], [place], [address], [place] tel:[phone] [facility] , Follow Up of Lupus (chief complaint) Oth organ or system involv in systemic lupus erythematosu sOther superintendent container terminal (current) drug therapyPain in unspecified hip 0-201 9 Raffaele Jackson. [facility] [address], [place], [address], [place]. tel:[phone] Referring Provider: Renetta Cm, [facility] [address], [place], [address]. tel:[phone] Office/Outpa tient Visit, Est [facility] , [address], [place], [address], [place] tel:[phone] [facility] , Follow Up of Lupus (chief complaint) Restless leg syndromeOth organ or system involv in systemic lupus erythematosu sFibromyalgi aOther superintendent container terminal (current) drug therapyDysur iaDepression Fatigue 8 Castorena Renetta. [facility] [address], [place], [address], [place]. tel:[phone] Referring Provider: Renetta Cm, [facility] [address], [place], [address]. tel:[phone] Office/Outpa tient Visit, Est [facility] , [address], [place], [address], [place] tel:[phone] [facility] , Follow Up of Lupus (chief complaint) Oth organ or system involv in systemic lupus erythematosu sFibromyalgi aOther skilled nursing (current) drug therapyRestl ess leg syndrome 8 Raffaele Renetta. [facility] [address], [place], [address], [place]. tel:[phone] Referring Provider: Renetta Cm, [facility] [address], [place], [address]. tel:[phone] Office/Outpa tient Visit, Est [facility] , [address], [place], [address], [place] tel:[phone] [facility] , Follow Up of Lupus (chief complaint) Oth organ or system involv in systemic lupus erythematosu sFibromyalgi aOther superintendent container terminal (current) drug therapyBunio nRaynaud's syndrome without gangrene 8 Raffaele Jackson. [facility] [address], [place], [address], [place]. tel:[phone] Referring Provider: Renetta Cm, [facility] [address], [place], [address]. tel:[phone] [facility] , [address], [place], [address], [place] tel:[phone] [facility] , No Information 8 Raffaele Jackson. [facility] [address], [place], [address], [place]. tel:[phone] Office/Outpa tient Visit, Est [facility] , [address], [place], [address], [place] tel:[phone] [facility] , Follow Up of Lupus (chief complaint) Oth organ or system involv in systemic lupus erythematosu sFibromyalgi aOther superintendent container terminal (current) drug therapyPain in unspecified hip 8 Raffaele Jackson. [facility] [address], [place], [address], [place]. tel:[phone] Referring Provider: Renetta Cm, [facility] [address], [place], [address]. tel:[phone] [facility] , [address], [place], [address], [place] tel:[phone] [facility] , Oth organ or system involv in systemic lupus erythematosu s Castorena Renetta. [facility] [address], [place], [address], [place]. tel:[phone] Referring Provider: Renetta Cm, [facility] [address], [place], [address]. tel:[phone] Office/Outpa tient Visit, Est [facility] , [address], [place], [address], [place] tel:[phone] [facility] , Follow Up of Lupus (chief complaint) Oth organ or system involv in systemic lupus erythematosu sFibromyalgi aOther skilled nursing (current) drug therapy Castorena Renetta. [facility] [address], [place], [address], [place]. tel:[phone] Referring Provider: Renetta Cm, [facility] [address], [place], [address]. tel:[phone] Office/Outpa tient Visit, Est [facility] , [address], [place], [address], [place] tel:[phone] [facility] , Follow Up of Lupus (chief complaint) Oth organ or system involv in systemic lupus erythematosu sFibromyalgi aOther skilled nursing (current) drug therapy Raffaele Jackson. [facility] [address], [place], [address], [place]. tel:[phone] Referring Provider: Renetta Cm, [facility] [address], [place], [address]. tel:[phone] Office/Outpa tient Visit, Est [facility] , [address], [place], [address], [place] tel:[phone] [facility] , Follow Up of SLE (chief complaint)Fo llow Up of Fibromyalgia syndrome (chief complaint) Vitamin D deficiency, unspecifiedO th organ or system involv in systemic lupus erythematosu sFibromyalgi aOther skilled nursing (current) drug therapyEdema 7 Raffaele Jackson. [facility] [address], [place], [address], [place]. tel:[phone] Referring Provider: Renetta Cm, [facility] [address], [place], [address]. tel:[phone] Office/Outpa tient Visit, Est [facility] , [address], [place], [address], [place] tel:[phone] [facility] , Follow Up of Lupus (chief complaint) Vitamin D deficiency, unspecifiedO th organ or system involv in systemic lupus erythematosu sFibromyalgi aOther skilled nursing (current) drug therapy 7 Raffaele Jackson. [facility] [address], [place], [address], [place]. tel:[phone] Referring Provider: Renetta mC [facility] [address], [place], [address]. tel:[phone] Office/Outpa tient Visit, Est [facility] , [address], [place], [address], [place] tel:[phone] [facility] , Follow Up of SLE (chief complaint) Vitamin D deficiency, unspecifiedO th organ or system involv in systemic lupus erythematosu sFibromyalgi aOther superintendent container terminal (current) drug therapy 6 Raffaele Jackson. [facility] [address], [place], [address], [place]. tel:[phone] Referring Provider: Renetta Cm, [facility] [address], [place], [address]. tel:[phone] Office/Outpa tient Visit, Est [facility] , [address], [place], [address], [place] tel:[phone] [facility] , Follow Up of Lupus (chief complaint) Oth organ or system involv in systemic lupus erythematosu sOther skilled nursing (current) drug therapyFibro myalgiaVitam in D deficiency, unspecified 6 Raffaele Jackson. [facility] [address], [place], [address], [place]. tel:[phone] Referring Provider: Renetta Cm, [facility] [address], [place], [address]. tel:[phone] Office/Outpa tient Visit, New [facility] , [address], [place], [address], [place] tel:[phone] [facility] , Lupus (chief complaint) Oth organ or system involv in systemic lupus erythematosu sOther skilled nursing (current) drug therapyFatig ueFibromyalg ia 6 Raffaele Jackson. [facility] [address], [place], [address], [place]. tel:[phone] Referring Provider: Renetta Cm, [facility] [address], [place], [address]. tel:[phone] Family History Family Member Type Diagnosis Age At Onset Maternal grandmother Problem (finding) osteoporosis Payers Payer name Insurance type Covered democrat ID [employer] er[employer](s) [facility] Federal [employer] Plan [id number] Social History Type Description Quantity Date Captured [...]
--- OUTSIDE RECORDS SUMMARY | 2023-12-14 01:57 | XMS_ITS | Encounter Summary ---
Author Name Unknown Organization [place] Address [facility] [place] [address] Care Team Providers Care Electric Motor Winders Assembler Name Role Phone Irma Paredes MD Unavailable Lashanda Crocker PhD LP Unavailable No Ref-Primary, Physician Primary Care Provider Adrián Guzman PA-C Unavailable Ravin Freeman PA-C Unavailable Ravin Freeman PA-C Unavailable [phone] Encounter Details Date Type Department Care Team (Late st Contact Info) Description 05/22/2015 MyC Medical Advice [facility] Adult Rheumatology 2nd Floor, Clinic [address] [phone] Irma Paredes MD [address] [place] [address] Social History Tobacco Use Types Packs/Day Years [...] on filedocumented in this encounter Care Teams Electric Motor Winders Assembler Relationship Specialty Start Date End Date No Ref-Primary, Physician PCP - General 07/22/17 Adrián Guzman PA-C [address] [place] [address] PCP - Assigned PCP 07/28/17 08/30/18 Ravin Freeman PA-C [address] [place], [place] [id number] PCP - Assigned PCP 08/31/18 10/14/18 Irma Paredes MD Resident Rheumatology 12/31/14 10/07/18 Lashanda Crocker, PhD LP [address] [place] [address] Psychology 12/31/14 Ravin Freeman PA-C [address] [place] [address] Assigned PCP 08/31/18 08/01/19 documented as of this encounter
--- OUTSIDE RECORDS SUMMARY | 2023-12-14 01:57 | XMS_ITS | Encounter Summary ---
Author Name Unknown Organization [place] Address [facility]0 [facility] [place] [address] Care Team Providers Care Client Relation Specialist Name Role Phone Irma Paredes MD Unavailable [phone] Lashanda Crocker PhD LP Unavailable [phone] No Ref-Primary, Physician Primary Care Provider Adrián Guzman PA-C Unavailable [phone] Ravin Freeman PA-C Unavailable Ravin Freeman PA-C Unavailable Encounter Details Date Type Department Care Team (Late st Contact Info) Description 04/22/2015 MyC Medical Advice [facility] Adult Rheumatology 2nd Floor, Clinic [address] [address] Irma Paredes MD [address] [place] [address] Social History Tobacco Use Types Packs/Day Years [...] on filedocumented in this encounter Care Teams Client Relation Specialist Relationship Specialty Start Date End Date No Ref-Primary, Physician PCP - General 07/22/17 Adrián Guzman PA-C [address] [place] [address] PCP - Assigned PCP 07/28/17 08/30/18 Ravin Freeman PA-C [address] [place], [place] [id number] PCP - Assigned PCP 08/31/18 10/14/18 Irma Paredes MD Resident Rheumatology 12/31/14 10/07/18 Lashanda Crocker, PhD LP 9 [place] [address] Psychology 12/31/14 Ravin Freeman PA-C [address] [place] [address] Assigned PCP 08/31/18 08/01/19 documented as of this encounter
--- OUTSIDE RECORDS SUMMARY | 2023-12-14 01:57 | XMS_ITS | Encounter Summary ---
Author Name Unknown Organization [place] Address [address] [place] [address] Care Team Providers Care Casino Assistant Manager Name Role Phone Irma Paredes MD Unavailable Lashanda Crocker PhD LP Unavailable [phone] No Ref-Primary, Physician Primary Care Provider Adrián Guzman PA-C Unavailable Ravin Freeman PA-C Unavailable Ravin Freeman PA-C Unavailable [phone] Encounter Details Date Type Department Care Team (Late st Contact Info) Description 04/07/2015 MyC Medical Advice [facility] Adult Rheumatology 2nd Floor, Clinic [address] [address] Osmin Pedersen MD [address] [place] [address] Social History Tobacco Use Types Packs/Day [...] on filedocumented in this encounter Care Teams Casino Assistant Manager Relationship Specialty Start Date End Date No Ref-Primary, Physician PCP - General 07/22/17 Adrián Guzman PA-C [address] [place] [address] PCP - Assigned PCP 07/28/17 08/30/18 Ravin Freeman PA-C [address] [place], [place] [id number] PCP - Assigned PCP 08/31/18 10/14/18 Irma Paredes MD Resident Rheumatology 12/31/14 10/07/18 Lashanda Crocker, PhD LP 9[address] [place] [address] Psychology 12/31/14 Ravin Freeman PA-C [address] [place] [address] Assigned PCP 08/31/18 08/01/19 documented as of this encounter
--- OUTSIDE RECORDS SUMMARY | 2023-12-14 01:57 | XMS_ITS | Encounter Summary ---
Author Name Unknown Organization [place] Address [facility] [place] [address] Care Team Providers Care Speech Assistant Name Role Phone Irma Paredes MD Unavailable Lashanda Crocker PhD LP Unavailable [phone] No Ref-Primary, Physician Primary Care Provider Adrián Guzman PA-C Unavailable Ravin Freeman PA-C Unavailable Ravin Freeman PA-C Unavailable Encounter Details Date Type Department Care Team (Late st Contact Info) Description 12/27/2014 MyC Medical Advice [facility] Adult Rheumatology 2nd Floor, Clinic [address] [address] Irma Paredes MD [address] [place] [address] Social History Tobacco Use Types Packs/Day Years [...] on filedocumented in this encounter Care Teams Speech Assistant Relationship Specialty Start Date End Date No Ref-Primary, Physician PCP - General 07/22/17 Adrián Guzman PA-C [address] [place] [address] PCP - Assigned PCP 07/28/17 08/30/18 Ravin Freeman PA-C [address] [place], [place] [id number] PCP - Assigned PCP 08/31/18 10/14/18 Irma Paredes MD Resident Rheumatology 12/31/14 10/07/18 Lashanda Crocker, PhD LP 9 [place] [address] Psychology 12/31/14 Ravin Freeman PA-C [address] [place] [address] Assigned PCP 08/31/18 08/01/19 documented as of this encounter
--- OUTSIDE RECORDS SUMMARY | 2023-12-14 01:57 | XMS_ITS | Encounter Summary ---
Author Name Unknown Organization [place] Address [facility]0 [facility] [place] [address] Care Team Providers Care Residential Air Sealing Technician Name Role Phone Irma Paredes MD Unavailable [phone] Lashanda Crocker PhD LP Unavailable [phone] No Ref-Primary, Physician Primary Care Provider Adrián Guzman PA-C Unavailable Ravin Freeman PA-C Unavailable Ravin Freeman PA-C Unavailable [phone] Encounter Details Date Type Department Care Team (Late st Contact Info) Description 05/20/2015 MyC Medical Advice [facility] Adult Rheumatology 2nd Floor, Clinic [address] [phone] Irma Paredes MD [address] [place] [address] Social History Tobacco Use Types Packs/Day Years [...] on filedocumented in this encounter Care Teams Residential Air Sealing Technician Relationship Specialty Start Date End Date No Ref-Primary, Physician PCP - General 07/22/17 Adrián Guzman PA-C [address] [place] [address] PCP - Assigned PCP 07/28/17 08/30/18 Ravin Freeman PA-C [address] [place], [place] [id number] PCP - Assigned PCP 08/31/18 10/14/18 Irma Paredes MD Resident Rheumatology 12/31/14 10/07/18 Lashanda Crocker, PhD LP 9 [place] [address] Psychology 12/31/14 Ravin Freeman PA-C [address] [place] [address] Assigned PCP 08/31/18 08/01/19 documented as of this encounter
--- OUTSIDE RECORDS SUMMARY | 2023-12-14 01:57 | XMS_ITS | Encounter Summary ---
Author Name Unknown Organization [place] Address [facility]0 [facility] [place] [address] Care Team Providers Care Research Investigator Name Role Phone Irma Paredes MD Unavailable Lashanda Crocker PhD LP Unavailable [phone] No Ref-Primary, Physician Primary Care Provider Adrián Guzman PA-C Unavailable Ravin Freeman PA-C Unavailable Ravin Freeman PA-C Unavailable Encounter Details Date Type Department Care Team (Late st Contact Info) Description 12/31/2014 MyC Medical Advice [facility] Adult Rheumatology 2nd Floor, Clinic [address] [address] Irma Paredes MD [address] [place] [address] Social History Tobacco Use Types Packs/Day Years [...] on filedocumented in this encounter Care Teams Research Investigator Relationship Specialty Start Date End Date No Ref-Primary, Physician PCP - General 07/22/17 Adrián Guzman PA-C [address] [place] [address] PCP - Assigned PCP 07/28/17 08/30/18 Ravin Freeman PA-C [address] [place], [place] [id number] PCP - Assigned PCP 08/31/18 10/14/18 Irma Paredes MD Resident Rheumatology 12/31/14 10/07/18 Lashanda Crocker, PhD LP 9 [place] [address] Psychology 12/31/14 Ravin Freeman PA-C [address] [place] [address] Assigned PCP 08/31/18 08/01/19 documented as of this encounter
--- OUTSIDE RECORDS SUMMARY | 2023-12-14 01:57 | XMS_ITS | Encounter Summary ---
Author Name Unknown Organization [place] Address [facility]0 [facility] [place] [address] Care Team Providers Care Collar Sewer Name Role Phone Irma Paredes MD Unavailable Lashanda Crocker PhD LP Unavailable [phone] No Ref-Primary, Physician Primary Care Provider Adrián Guzman PA-C Unavailable Ravin Freeman PA-C Unavailable Ravin Freeman PA-C Unavailable [phone] Encounter Details Date Type Department Care Team (Late st Contact Info) Description 12/28/2014 MyC Medical Advice [facility] Adult Rheumatology 2nd Floor, Clinic [address] [address] Irma Paredes MD [address] [place] [address] Social History Tobacco Use Types Packs/Day Years [...] on filedocumented in this encounter Care Teams Collar Sewer Relationship Specialty Start Date End Date No Ref-Primary, Physician PCP - General 07/22/17 Adrián Guzman PA-C [address] [place] [address] PCP - Assigned PCP 07/28/17 08/30/18 Ravin Freeman PA-C [address] [place], [place] [id number] PCP - Assigned PCP 08/31/18 10/14/18 Irma Paredes MD Resident Rheumatology 12/31/14 10/07/18 Lashanda Crocker, PhD LP 9 [place] [address] Psychology 12/31/14 Ravin Freeman PA-C [address] [place] [address] Assigned PCP 08/31/18 08/01/19 documented as of this encounter
[2023-12-14 02:00] LABS: Albumin* 4.4 g/dL (3.3-5.0); Chloride* 106 mmol/L (96-114)
[2023-12-14 02:01] LABS: Potassium* 4.1 mmol/L (3.6-5.1); Sodium* 137 mmol/L (135-149)
[2023-12-14 02:03] LABS: Alanine Aminotransferase* 54 U/L (4-35); Alkaline Phosphatase* 66 U/L (40-150); Anion Gap 6 mEq/L (7-15); Aspartate Amino Transferase* 52 U/L (12-35); Bilirubin Total* 1.3 mg/dL (0.1-1.5); Blood Urea Nitrogen* 14 mg/dL (5-24); Carbon Dioxide* 25 mmol/L (20-32); Creatinine* 0.6 mg/dL (0.5-1.5); Est. Creatinine Clearance* 102.07; Estimated Glomerular Filt Rate 116 ml/min; Total Protein* 7.4 g/dL (6.0-8.3)
[2023-12-14 02:04] LABS: Calcium* 9.3 mg/dL (8.4-10.6); Glucose* 90 mg/dL (60-115)
[2023-12-14 02:09] LABS: C Reactive Protein* < 0.5 mg/dL (0.5-1.0)
[2023-12-14] MEDS: HYDROmorphone 2 MG TABLET PO (02:44)
== END 2023-12-14 02:44 | disposition home or self-care (01) ==
PROVIDERS: Emergency Provider Family Medicine
DX: N83.201 Unspecified ovarian cyst, right side (principal); K66.1 Hemoperitoneum
CPT/HCPCS: 36415; 76830; 76856; 80053; 81003; 83605; 85025; 86140; 96374; 96375; 99284; A9270; J1885